=== PATIENT | male | born 1930 | race Two or more races ===

== ENCOUNTER 2016-10-18 03:53 | Emergency (ER) | payer OTHER ==
[~2016-10-18 03:53] MED LIST: /AMLO25TA PO; BISAC5TA OR; BISAC5TA PR; COLC0.6T34 PO; GLYB5TAB5 PO; LEVOTHYROID PO; LISI40TAB PO; METFORMIN PO; METO50TA4 PO; NYST10PW TOP; OMEP20CA3 PO; PERC10TA PO; PERCOCET OR; PRAVASTATIN PO; PRED10TA2 PO; SENO8.6T9 PO; SOMA350T PO; TRAMADOL PO; ULTR50TA PO; ZEST40TA PO; ZOLO50TA PO; norvasc PO; tylenol PO
[2016-10-18 05:03] LABS: BASO % 0.2 % (0.0-1.0); EOS # 0.2 K/mm3 (0.0-0.50); EOS % 4.1 % (0.0-3.0); LARGE UNSTAINED CELL # 0.1 K/mm3 (0.0-0.4); LARGE UNSTAINED CELL % 1.7 % (0.0-4.0); LYMPH # 1.3 K/mm3 (1.5-4.5); LYMPH % 23.4 % (24.0-44.0); MEAN CORPUSCULAR HEMOGLOBIN 30.7 pg (27.0-33.0); MEAN CORPUSCULAR VOLUME 93.2 fl (80.0-96.0); MONO # 0.3 K/mm3 (0.0-0.8); MONO % 5.8 % (0.0-5.0); NEUTROPHILS # 3.6 K/mm3 (1.8-7.7); NEUTROPHILS % 64.8 % (36.0-66.0); PLATELET COUNT, AUTOMATED 156 k/mm3 (150-450); WHITE BLOOD COUNT 5.5 K/mm3 (4.0-10.0)
[2016-10-18 05:41] LABS: ANION GAP 8 MEQ/L (8-16); BLOOD UREA NITROGEN 27 MG/DL (7-18); CARBON DIOXIDE LEVEL 27 MEQ/L (21-32); CHLORIDE LEVEL 108 MEQ/L (98-107); CREATININE FOR GFR 1.49 MG/DL (0.70-1.30); GLOMERULAR FILTRATION RATE 47.5 (>35); GLUCOSE, FASTING 221 MG/DL (83-110); POTASSIUM SERUM 3.8 MEQ/L (3.5-5.1); SODIUM LEVEL 143 MEQ/L (136-145)
[2016-10-18] MEDS ORDERED: ALBUTEROL 90 MCG/ACT 8GM HFA INHALER As Ordered ONE (07:06)
[2016-10-18] MEDS ORDERED: BENZONATATE 100 MG CAP As Ordered ONE (07:09)
--- NOTE | 2016-10-18 08:01 | EDDOCDS ---
Nurse's Notes [facility] Name: Troy Mena Age: 86 yrs Sex: Male : 1930 Arrival Date: 10/18/2016 Time: 03:53 Bed 17 Private MD: Gustavo Martin MD Diagnosis: Acute bronchitis Presentation: 10/18 03:56 Presenting complaint: EMS states: Pt to ED via EMS for evaluation of shortness of mv5 breath with productive cough. Improvement of wheezes after albuterol neb en route. Adult Sepsis Screening: The patient does not have new or worsening altered mentation. Patient's respiratory rate is less than 22. Systolic blood pressure is greater than 100. Patient has a qSOFA score of 0- Negative Sepsis Screen. Suicide/Homicide risk assessment- the patient denies having any suicidal and/or homicidal ideations and does not present with any other emotional, behavioral or mental health complaints. Status: Patient is not a business services sales representative or dependent. Transition of care: patient was not received from another setting of care. 03:56 Acuity: DURAN Level 3 mv5 03:56 Method Of Arrival: Ambulance mv5 Triage Assessment: 04:03 General: Appears in no apparent distress, comfortable, well nourished. Pain: Location: mv5 anterior aspect of left shoulder Pain currently is 8 out of 10 on a pain scale. The patient is triaged at the bedside. See Assessment in Nurses Notes section of ED record. Neurological: Level of Consciousness is awake, alert, Oriented to person, place, time. Cardiovascular: Capillary refill < 3 seconds Heart tones S1 S2 present Pulses are all present. Rhythm is sinus rhythm No ectopy. Respiratory: Onset: The symptoms/episode began/occurred yesterday, Airway is patent Respiratory effort is even, unlabored, Respiratory pattern is regular, symmetrical, Breath sounds are clear bilaterally. GI: Reports lower abdominal pain, ongoing LLQ discomfort, pt states "for a long time". Reports frequent gas. : No deficits noted. Derm: Skin is pink, warm & dry. Historical: - Allergies: Aspirin; - Home Meds: 1. allopurinol 100 mg Oral tab once daily 2. gabapentin 100 mg Oral cap 2 caps nightly 3. Januvia 50 mg oral tab once daily 4. levemir insulin 55 u 4 pm 5. Levoxyl 75 mcg Oral tab once daily 6. lisinopril 40 mg Oral tab once daily 7. Mag 64 64 mg oral TbER daily 8. omeprazole 20 mg Oral cpDR 2 times per day 9. Pravachol 40 mg Oral tab once daily - PMHx: Diabetes - IDDM: controlled; Gout; Hypercholesterolemia; Hypertension; - PSHx: left shoulder surgery; - Social history: Smoking status: Patient states former smoker of tobacco. No barriers to communication noted, The patient speaks fluent Kiswahili. - Family history: Not pertinent. - : The pt / caregiver states he / she is not on anticoagulants. Home medication list is obtained from the patient. - Exposure Risk Screening:: None identified. Screenin:09 Screening information is obtained from the patient. Fall risk: No risks identified. mv5 Fall risk: At risk due to prior history of falls. Assistance ADL's: requires no assistance with activities of daily living. Abuse/DV Screen: The patient / caregiver reports he/she is: not in a situation that causes fear, pain or injury. Nutritional screening: No deficits noted. Advance Directives: Currently, there is a health care proxy, There is no active DNR order. home support is adequate. Assessment: 04:09 General: See Triage assessment. Cardiovascular: Capillary refill < 3 seconds Heart mv5 tones S1 S2 present Rhythm is sinus rhythm. Cardiovascular: Chest pain is denied. Respiratory: Airway is patent Respiratory effort is even, unlabored, Respiratory pattern is regular, occasional cough. Breath sounds are clear bilaterally. Derm: Skin is pink, warm & dry. 05:09 General: Appears in no apparent distress, Behavior is cooperative, pleasant. mv5 Cardiovascular: Rhythm is sinus rhythm No ectopy. Respiratory: Airway is patent Respiratory effort is even, unlabored, Respiratory pattern is regular, symmetrical. Derm: Skin is pink, warm & dry. 05:58 General: Appears in no apparent distress. General: Pt assisted to restroom by Trace, mv5 CERAMIC MOLD DESIGNER.. Respiratory: Airway is patent Respiratory effort is even, unlabored, Respiratory pattern is regular, symmetrical. Derm: Skin is pink, warm & dry. 06:45 General: Appears in no apparent distress. Cardiovascular: Rhythm is sinus rhythm No mv5 ectopy. Respiratory: Airway is patent Respiratory effort is even, unlabored, Respiratory pattern is regular, symmetrical. Derm: Skin is pink, warm & dry. 07:15 General: Appears skin warm and dry color satisfactory. Moist pink oral mucosa. chest jmk CTA, but slightly diminished to right base. denies pain. Monitor is sr. No cough appreciated.. SL intact. attempting transportation arrangements. Vital Signs: 04:05 BP 143 / 65; Pulse 78; Resp 18; Temp 99.3(TE); Pulse Ox 96% on R/A; Weight 79.38 kg nb2 (R); Height 5 ft. 4 in. (162.56 cm) (R); Pain 6/10; 04:19 BP 131 / 54 (auto/); mv5 04:21 Pulse 90 MON; Pulse Ox 93% ; mv5 04:34 BP 146 / 61 (auto/); mv5 04:34 Pulse 82 MON; Pulse Ox 93% ; mv5 04:52 BP 143 / 86 (auto/); mv5 04:53 Pulse 88 MON; Pulse Ox 93% ; mv5 05:04 BP 159 / 74 (auto/); mv5 05:04 Pulse 84 MON; Pulse Ox 95% ; mv5 05:19 BP 153 / 69 (auto/); mv5 05:19 Pulse 82 MON; Pulse Ox 92% ; mv5 05:34 BP 160 / 70 (auto/); mv5 05:34 Pulse 96 MON; Pulse Ox 90% ; mv5 06:01 BP 164 / 73 (auto/); mv5 06:02 Pulse 86 MON; Pulse Ox 96% ; mv5 04:05 Body Mass Index 30.04 (79.38 kg, 162.56 cm) nb2 Vitals: 04:05 Log In Time N/A - ambulance arrival. nb2 ED Course: 03:55 Patient visited by Gisela Posey PCA. nilo 03:55 Gustavo Martin is Private Physician. nilo 03:55 Thea Carlin,RN is Primary Nurse. nilo 03:55 Patient moved to Waiting nilo 03:55 Patient moved to 17 nilo 03:58 Triage Initiated mv5 04:05 Placed in gown. Bed in low position. Call light in reach. Side rails up X2. Cardiac nb2 monitor on. Pulse ox on. NIBP on. 04:06 Patient visited by Izzy Trevizo. nb2 04:09 The patient / caregiver is instructed regarding the plan of care and ED course. mv5 04:30 López Bueno DO is Attending Physician. mm11 04:30 Patient visited by López Bueno DO. mm11 04:40 Patient visited by López Bueno DO. mm11 04:51 Patient visited by Kulwinder Rg PCA. mdr 04:51 EKG done. (by ED staff). Reviewed by óLpez Bueno DO. mdr 04:55 Cardiac Injury Profile Sent. mv5 04:55 CBC with Diff Sent. mv5 04:55 Basic Metabolic Profile Sent. mv5 04:55 B-Type Natiuretic Peptide Sent. mv5 04:55 -Blood Culture Sent. mv5 04:56 -Influenza A&B Rapid Antigen - Nose Sent. mv5 04:56 Inserted saline lock: 20 gauge in right antecubital area and blood collected. The mv5 patient tolerated the procedure well. 04:56 Maintain field IV. Dressing intact. Site clean & dry. Gauge & site: 20g in LAC. mv5 05:06 BLOOD CULTURES Sent. nb2 05:21 Patient visited by Thea Carlin,ARABELLA. mv5 06:00 Assisted to bathroom. mdr 06:01 Patient visited by Thea Carlin,ARABELLA. mv5 06:17 Patient visited by Kulwinder Rg PCA. mdr 06:49 Patient visited by Thea Carlin,ARABELLA. mv5 06:57 Gustavo Martin is Referral Physician. mm11 07:54 COUNTS INCLUDE 234 BEDS AT THE [facility] Payment Agreement was scanned into [employer] and attached to record. mm15 07:59 Discontinued lock intact, bleeding controlled, pressure dressing applied, No jmk redness/swelling at site. No procedures done that require assistance. Administered Medications: 07:10 Drug: Ventolin 2 puffs [Ventolin HFA 90 mcg/actuation aerosol inhaler (2 puffs)] Route: js11 Inhalation; 07:14 Drug: Tessalon 200 mg Route: PO; jmk RT: 07:10 Initial MDI Given. Patient was instructed and evaluated on procedure Patient tolerated js11 procedure well without adverse effect Spacer used Number of puffs given: 2. Order Results: Lab Order: B-Type Natiuretic Peptide; SPEC'M 10/18/16 04:52 Test: BRAIN NATRIURETIC PEPTIDE; Value: 50.7; Range: <100; Units: PG/ML; Status: F Lab Order: Basic Metabolic Profile; SPEC'M 10/18/16 04:52 Test: GLUCOSE, FASTING; Value: 221; Range: 83-110; Abnormal: Above high normal; Units: MG/DL; Status: F Test: BLOOD UREA NITROGEN; Value: 27; Range: 7-18; Abnormal: Above high normal; Units: MG/DL; Status: F Test: CREATININE FOR GFR; Value: 1.49; Range: 0.70-1.30; Abnormal: Above high normal; Units: MG/DL; Status: F Test: GLOMERULAR FILTRATION RATE; Value: 47.5; Range: >35; Status: F Test: SODIUM LEVEL; Value: 143; Range: 136-145; Units: MEQ/L; Status: F Test: POTASSIUM SERUM; Value: 3.8; Range: 3.5-5.1; Units: MEQ/L; Status: F Test: CHLORIDE LEVEL; Value: 108; Range: 98-107; Abnormal: Above high normal; Units: MEQ/L; Status: F Test: CARBON DIOXIDE LEVEL; Value: 27; Range: 21-32; Units: MEQ/L; Status: F Test: ANION GAP; Value: 8; Range: 8-16; Units: MEQ/L; Status: F Test: CALCIUM LEVEL; Value: 9.0; Range: 8.8-10.2; Units: MG/DL; Status: F Test Note: ; Units are mL/min/1.73 m2 Chronic Kidney Disease Staging per NKF: Stage I & II GFR >=60 Normal to Mildly Decreased Stage III GFR 30-59 Moderately Decreased Stage IV GFR 15-29 Severely Decreased Stage V GFR <15 Very Little GFR Left ESRD GFR <15 on SYSTEM TRAINER Lab Order: CBC with Diff; 10/18/16 04:52 Test: WHITE BLOOD COUNT; Value: 5.5; Range: 4.0-10.0; Units: K/mm3; Status: F Test: RED BLOOD COUNT; Value: 3.95; Range: 4.30-6.10; Abnormal: Below low normal; Units: M/mm3; Status: F Test: HEMOGLOBIN; Value: 12.1; Range: 14.0-18.0; Abnormal: Below low normal; Units: g/dl; Status: F Test: HEMATOCRIT; Value: 36.8; Range: 42.0-52.0; Abnormal: Below low normal; Units: %; Status: F Test: MEAN CORPUSCULAR VOLUME; Value: 93.2; Range: 80.0-96.0; Units: fl; Status: F Test: MEAN CORPUSCULAR HEMOGLOBIN; Value: 30.7; Range: 27.0-33.0; Units: pg; Status: F Test: MEAN CORPUSCULAR HGB CONC; Value: 33.0; Range: 32.0-36.5; Units: g/dl; Status: F Test: RED CELL DISTRIBUTION WIDTH; Value: 13.0; Range: 11.5-14.5; Units: %; Status: F Test: PLATELET COUNT, AUTOMATED; Value: 156; Range: 150-450; Units: k/mm3; Status: F Test: NEUTROPHILS %; Value: 64.8; Range: 36.0-66.0; Units: %; Status: F Test: LYMPH %; Value: 23.4; Range: 24.0-44.0; Abnormal: Below low normal; Units: %; Status: F Test: MONO %; Value: 5.8; Range: 0.0-5.0; Abnormal: Above high normal; Units: %; Status: F Test: EOS %; Value: 4.1; Range: 0.0-3.0; Abnormal: Above high normal; Units: %; Status: F Test: BASO %; Value: 0.2; Range: 0.0-1.0; Units: %; Status: F Test: LARGE UNSTAINED CELL %; Value: 1.7; Range: 0.0-4.0; Units: %; Status: F Test: NEUTROPHILS #; Value: 3.6; Range: 1.8-7.7; Units: K/mm3; Status: F Test: LYMPH #; Value: 1.3; Range: 1.5-4.5; Abnormal: Below low normal; Units: K/mm3; Status: F Test: MONO #; Value: 0.3; Range: 0.0-0.8; Units: K/mm3; Status: F Test: EOS #; Value: 0.2; Range: 0.0-0.50; Units: K/mm3; Status: F Test: BASO #; Value: 0.0; Range: 0.0-0.2; Units: K/mm3; Status: F Test: LARGE UNSTAINED CELL #; Value: 0.1; Range: 0.0-0.4; Units: K/mm3; Status: F Lab Order: Cardiac Injury Profile; [facility] 10/18/16 04:52 Test: CPK CREATINE PHOSPHOKINASE; Value: 434; Range: 39-308; Abnormal: Above high normal; Units: U/L; Status: F Test: CK-MB VALUE MASS; Value: 10.7; Range: 0.0-3.6; Abnormal: Above high normal; Units: NG/ML; Status: F Test: MB/CK RELATIVE INDEX; Value: 2.46; Range: < OR =4; Status: F Test Note: ; DIAGNOSIS CRITERIA MMB ng/ml Relative Index (RI) NON-AMI < or = 5 N/A VEGA ZONE > 5 < or = 4 AMI > 5 > 4 Lab Order: Troponin; [facility] 10/18/16 04:52 Test: TROPONIN I; Value: < 0.02; Range: < 0.10; Units: NG/ML; Status: F Test Note: ; Troponin I Reference Interval for [employer] LOCI: 99th Percentile= 0.00-0.045 ng/ml Risk Stratification: <= 0.10 ng/ml Decreased Risk for Adverse Clinical Events. 0.10-1.50 ng/ml Increased Risk for Adverse Clinical Events. Evaluation of additional criterion and/or repeat testing in 2-6 hours is suggested to rule out myocardial damage. >= 1.50 ng/ml Indicative of Myocardial Injury. Lab Order: -Influenza A&B Rapid Antigen - Nose; SPEC'M 10/18/16 04:55 Test: INFLUENZA A RAPID SCR by ICA; Value: INFLUENZA A RESULTS NEGATIVE; Status: F Test: INFLUENZA A RAPID SCR by ICA; Value: Comments:; Status: F Test: INFLUENZA B RAPID SCR by ICA; Value: INFLUENZA B RESULTS NEGATIVE; Status: F Test Note: ; The Influenza test is a direct rapid immunoassay for the qualitative detection of Influenza viral antigen. Cell culture (Viral Culture) testing should be considered to confirm NEGATIVE results and to assist in detecting other viruses that can provide similar clinical symptoms. Please contact the lab within 24 hours ([phone]) if confirmatory testing is desired. Outcome: 06:57 Discharge ordered by Provider. mm11 07:59 Discharge Assessment: Patient awake, alert and oriented x 3. No cognitive and/or jmk functional deficits noted. Patient verbalized understanding of disposition instructions. patient administered narcotics - no. The following High Risk Discharge criteria are identified: None. Discharged to home ambulatory. Condition: good. Discharge instructions given to patient, Instructed on discharge instructions, follow up and referral plans. medication usage, Demonstrated understanding of instructions, medications, Patient was not receptive of discharge instructions. No special radiology studies were completed. Property :Personal belongings accompany Pt. 08:00 Patient left the ED. [facility] Signatures: Neil Tom,RN RN irisk López Bueno, DO mm11 Gisela Posey, CERAMIC MOLD DESIGNER CERAMIC MOLD DESIGNER Elroy Savage js11 Jona Moeller mm15 Kulwinder Rg, CERAMIC MOLD DESIGNER CERAMIC MOLD DESIGNER Izzy Castanon nb2 Thea Carlin,RN RN mv5 MTDD
--- NOTE | 2016-10-18 08:01 | EDDOCDS ---
Physician Documentation [facility] Name: Troy Mena Age: 86 yrs Sex: Male : 1930 Arrival Date: 10/18/2016 Time: 03:53 Bed 17 Private MD: Gustavo Martin MD Disposition: 10/18/16 06:57 Discharged to Home/Self Care. Impression: Acute bronchitis. - Condition is Stable. - Discharge Instructions: Acute Bronchitis, Viral Infections, Viral Infections, [id number]. - Prescriptions for Mucinex 600 mg - take 1 tablet by ORAL route 2 times per day; 30 tablet. benzonatate 200 mg Oral Capsule - take 1 capsule by ORAL route 3 times per day As needed; 30 capsule. - Medication Reconciliation, Local Pharmacy Hours form. - Follow up: Gustavo Martin; When: 2 - 3 days; Reason: Continuance of care. - Problem is an acute exacerbation. - Symptoms have improved. Historical: - Allergies: Aspirin; - Home Meds: 1. allopurinol 100 mg Oral tab once daily 2. gabapentin 100 mg Oral cap 2 caps nightly 3. Januvia 50 mg oral tab once daily 4. levemir insulin 55 u 4 pm 5. Levoxyl 75 mcg Oral tab once daily 6. lisinopril 40 mg Oral tab once daily 7. Mag 64 64 mg oral TbER daily 8. omeprazole 20 mg Oral cpDR 2 times per day 9. Pravachol 40 mg Oral tab once daily - PMHx: Diabetes - IDDM: controlled; Gout; Hypercholesterolemia; Hypertension; - PSHx: left shoulder surgery; - Social history: Smoking status: Patient states former smoker of tobacco. No barriers to communication noted, The patient speaks fluent Fijian. - Family history: Not pertinent. - : The pt / caregiver states he / she is not on anticoagulants. Home medication list is obtained from the patient. - Exposure Risk Screening:: None identified. Vital Signs: 10/18 04:05 BP 143 / 65; Pulse 78; Resp 18; Temp 99.3(TE); Pulse Ox 96% on R/A; Weight 79.38 kg / nb2 175 lbs (R); Height 5 ft. 4 in. (162.56 cm) (R); Pain 6/10; 04:19 BP 131 / 54 (auto/); mv5 04:21 Pulse 90 MON; Pulse Ox 93% ; mv5 04:34 BP 146 / 61 (auto/); mv5 04:34 Pulse 82 MON; Pulse Ox 93% ; mv5 04:52 BP 143 / 86 (auto/); mv5 04:53 Pulse 88 MON; Pulse Ox 93% ; mv5 05:04 BP 159 / 74 (auto/); mv5 05:04 Pulse 84 MON; Pulse Ox 95% ; mv5 05:19 BP 153 / 69 (auto/); mv5 05:19 Pulse 82 MON; Pulse Ox 92% ; mv5 05:34 BP 160 / 70 (auto/); mv5 05:34 Pulse 96 MON; Pulse Ox 90% ; mv5 06:01 BP 164 / 73 (auto/); mv5 06:02 Pulse 86 MON; Pulse Ox 96% ; mv5 04:05 Body Mass Index 30.04 (79.38 kg, 162.56 cm) nb2 MDM: 04:41 -Blood Culture (Adults Only), peripheral from different site, or from device/port/PICC mm11 etc. if present ordered. 04:41 Certified Medical Transcriptionist/Pulse Ox/q 15 min VS ordered. mm11 04:41 IV Saline Lock ordered. mm11 04:41 Rhythm Strip to chart ordered. mm11 04:42 B-Type Natiuretic Peptide Ordered. EDMS 04:42 Basic Metabolic Profile Ordered. EDMS 04:42 CBC with Diff Ordered. EDMS 04:42 Cardiac Injury Profile Ordered. EDMS 04:42 Troponin Ordered. EDMS 04:42 -Blood Culture Ordered. EDMS 04:42 -Influenza A&B Rapid Antigen - Nose Ordered. EDMS 04:42 Chest, 2 View (pa\E\lat) Ordered. EDMS 04:42 ECG WITH READING ER PHYS+CARDIAG ordered. EDMS 04:43 -Blood Culture (Adults Only), peripheral from different site, or from device/port/PICC nilo etc. if present complete. 04:46 BLOOD CULTURES Ordered. EDMS 05:39 CBC with Diff Reviewed. mm11 05:39 B-Type Natiuretic Peptide Reviewed. mm11 05:39 -Influenza A&B Rapid Antigen - Nose Reviewed. mm11 06:54 Basic Metabolic Profile Reviewed. mm11 06:54 Cardiac Injury Profile Reviewed. mm11 06:54 Troponin Reviewed. mm11 06:56 Tessalon 200 mg PO once ordered. mm11 06:56 Ventolin Inhaler 2 puffs Inhalation once ordered. mm11 06:56 MDI teaching with Spacer ordered. mm11 07:52 Financial registration complete. mm15 07:54 [facility] Payment Agreement was scanned into [employer] and attached to record. mm15 Administered Medications: 07:10 Drug: Ventolin 2 puffs [Ventolin HFA 90 mcg/actuation aerosol inhaler (2 puffs)] Route: js11 Inhalation; 07:14 Drug: Tessalon 200 mg Route: PO; marleni Signatures: Dispatcher MedHo EDNeil John,RN RN López Gonsales, DO mm11 Gisela Posey, BJ SOCIAL MEDIA CONTENT MANAGER Jona Mackay mm15 Thea Carlin,RN RN mv5 Elroy Ley js11 The chart was reviewed and I authenticate all verbal orders and agree with the evaluation and treatment provided.Attachments: 07:54 [facility] Payment Agreement mm15 MTDD
--- NOTE | 2016-10-18 08:01 | REP ---
Clinical: Acute cough . Comparison: 09/17/2014 . Technique: PA and lateral. Findings: The mediastinum and cardiac silhouette are normal. The lung hebert are clear and without acute consolidation, effusion, or pneumothorax. The skeletal structures are intact and normal. Impression: 1. No acute cardiopulmonary process. Signed by Zander Almanza MD 10/18/2016 07:52 A
--- NOTE | 2016-10-18 08:33 | ECGEPIP ---
Stationary ECG Study [facility] - ED Test Date: 2016-10-18 Pat Name: WILFRIDO ESTRADA Department: Room: - Gender: M Manufacturing Technician: : 1930 Requested By: ELVIS Taveras Order Number: [id number] Reading MD: Jenise Wang Measurements Intervals [place] Rate: 81 P: 22 MD: 164 QRS: 12 QRSD: 97 T: 113 QT: 359 QTc: 417 Interpretive Statements SINUS RHYTHM NONSPECIFIC ST & T-WAVE ABNORMALITY INCREASED RATE 09/17/14 Electronically Signed On 10-18-2016 8:33:18 EST by Jenise Wang
[2016-10-18] MEDS ORDERED: MORPHINE 2 MG/ML 1ML SYRINGE As Ordered ONE (12:54)
[2016-10-18] MEDS ORDERED: LEVO75TA34 PO (15:29)
[2016-10-18] MEDS ORDERED: ALLO100T PO (15:29)
[2016-10-18] MEDS ORDERED: SITA50TAB PO (15:29)
[2016-10-18] MEDS ORDERED: GABA-279 PO (15:29)
[2016-10-18] MEDS ORDERED: MAGN64TASA PO (15:29)
[2016-10-18] MEDS ORDERED: SERT25TA85 PO (15:31)
[2016-10-18] MEDS ORDERED: OMEP20CA3 PO (15:31)
[2016-10-18] MEDS ORDERED: LISI40TAB PO (15:31)
[2016-10-18] MEDS ORDERED: INSUDET SC (15:31)
[2016-10-18] MEDS ORDERED: PRAV40TA2 PO (15:31)
--- NOTE | 2016-10-20 09:01 | EDDOCDS ---
Nurse's Notes [facility] Name: Troy Mena Age: 86 yrs Sex: Male : 1930 Arrival Date: 10/18/2016 Time: 03:53 Bed 17 Private MD: Gustavo Martin MD Diagnosis: Acute bronchitis Presentation: 10/18 03:56 Presenting complaint: EMS states: Pt to ED via EMS for evaluation of shortness of mv5 breath with productive cough. Improvement of wheezes after albuterol neb en route. Adult Sepsis Screening: The patient does not have new or worsening altered mentation. Patient's respiratory rate is less than 22. Systolic blood pressure is greater than 100. Patient has a qSOFA score of 0- Negative Sepsis Screen. Suicide/Homicide risk assessment- the patient denies having any suicidal and/or homicidal ideations and does not present with any other emotional, behavioral or mental health complaints. Status: Patient is not a automotive fuel injection servicer or dependent. Transition of care: patient was not received from another setting of care. 03:56 Acuity: DURAN Level 3 mv5 03:56 Method Of Arrival: Ambulance mv5 Triage Assessment: 04:03 General: Appears in no apparent distress, comfortable, well nourished. Pain: Location: mv5 anterior aspect of left shoulder Pain currently is 8 out of 10 on a pain scale. The patient is triaged at the bedside. See Assessment in Nurses Notes section of ED record. Neurological: Level of Consciousness is awake, alert, Oriented to person, place, time. Cardiovascular: Capillary refill < 3 seconds Heart tones S1 S2 present Pulses are all present. Rhythm is sinus rhythm No ectopy. Respiratory: Onset: The symptoms/episode began/occurred yesterday, Airway is patent Respiratory effort is even, unlabored, Respiratory pattern is regular, symmetrical, Breath sounds are clear bilaterally. GI: Reports lower abdominal pain, ongoing LLQ discomfort, pt states "for a long time". Reports frequent gas. : No deficits noted. Derm: Skin is pink, warm & dry. Historical: - Allergies: Aspirin; - Home Meds: 1. allopurinol 100 mg Oral tab once daily 2. gabapentin 100 mg Oral cap 2 caps nightly 3. Januvia 50 mg oral tab once daily 4. levemir insulin 55 u 4 pm 5. Levoxyl 75 mcg Oral tab once daily 6. lisinopril 40 mg Oral tab once daily 7. Mag 64 64 mg oral TbER daily 8. omeprazole 20 mg Oral cpDR 2 times per day 9. Pravachol 40 mg Oral tab once daily - PMHx: Diabetes - IDDM: controlled; Gout; Hypercholesterolemia; Hypertension; - PSHx: left shoulder surgery; - Social history: Smoking status: Patient states former smoker of tobacco. No barriers to communication noted, The patient speaks fluent Welsh. - Family history: Not pertinent. - : The pt / caregiver states he / she is not on anticoagulants. Home medication list is obtained from the patient. - Exposure Risk Screening:: None identified. Screenin:09 Screening information is obtained from the patient. Fall risk: No risks identified. mv5 Fall risk: At risk due to prior history of falls. Assistance ADL's: requires no assistance with activities of daily living. Abuse/DV Screen: The patient / caregiver reports he/she is: not in a situation that causes fear, pain or injury. Nutritional screening: No deficits noted. Advance Directives: Currently, there is a health care proxy, There is no active DNR order. home support is adequate. Assessment: 04:09 General: See Triage assessment. Cardiovascular: Capillary refill < 3 seconds Heart mv5 tones S1 S2 present Rhythm is sinus rhythm. Cardiovascular: Chest pain is denied. Respiratory: Airway is patent Respiratory effort is even, unlabored, Respiratory pattern is regular, occasional cough. Breath sounds are clear bilaterally. Derm: Skin is pink, warm & dry. 05:09 General: Appears in no apparent distress, Behavior is cooperative, pleasant. mv5 Cardiovascular: Rhythm is sinus rhythm No ectopy. Respiratory: Airway is patent Respiratory effort is even, unlabored, Respiratory pattern is regular, symmetrical. Derm: Skin is pink, warm & dry. 05:58 General: Appears in no apparent distress. General: Pt assisted to restroom by Trace, mv5 BELL NECK HAMMERER.. Respiratory: Airway is patent Respiratory effort is even, unlabored, Respiratory pattern is regular, symmetrical. Derm: Skin is pink, warm & dry. 06:45 General: Appears in no apparent distress. Cardiovascular: Rhythm is sinus rhythm No mv5 ectopy. Respiratory: Airway is patent Respiratory effort is even, unlabored, Respiratory pattern is regular, symmetrical. Derm: Skin is pink, warm & dry. 07:15 General: Appears skin warm and dry color satisfactory. Moist pink oral mucosa. chest jmk CTA, but slightly diminished to right base. denies pain. Monitor is sr. No cough appreciated.. SL intact. attempting transportation arrangements. Vital Signs: 04:05 BP 143 / 65; Pulse 78; Resp 18; Temp 99.3(TE); Pulse Ox 96% on R/A; Weight 79.38 kg nb2 (R); Height 5 ft. 4 in. (162.56 cm) (R); Pain 6/10; 04:19 BP 131 / 54 (auto/); mv5 04:21 Pulse 90 MON; Pulse Ox 93% ; mv5 04:34 BP 146 / 61 (auto/); mv5 04:34 Pulse 82 MON; Pulse Ox 93% ; mv5 04:52 BP 143 / 86 (auto/); mv5 04:53 Pulse 88 MON; Pulse Ox 93% ; mv5 05:04 BP 159 / 74 (auto/); mv5 05:04 Pulse 84 MON; Pulse Ox 95% ; mv5 05:19 BP 153 / 69 (auto/); mv5 05:19 Pulse 82 MON; Pulse Ox 92% ; mv5 05:34 BP 160 / 70 (auto/); mv5 05:34 Pulse 96 MON; Pulse Ox 90% ; mv5 06:01 BP 164 / 73 (auto/); mv5 06:02 Pulse 86 MON; Pulse Ox 96% ; mv5 04:05 Body Mass Index 30.04 (79.38 kg, 162.56 cm) nb2 Vitals: 04:05 Log In Time N/A - ambulance arrival. nb2 ED Course: 03:55 Patient visited by Gisela Posey PCA. nilo 03:55 Gustavo Martin is Private Physician. nilo 03:55 Thea Carlin,RN is Primary Nurse. nilo 03:55 Patient moved to Waiting nilo 03:55 Patient moved to 17 nilo 03:58 Triage Initiated mv5 04:05 Placed in gown. Bed in low position. Call light in reach. Side rails up X2. Cardiac nb2 monitor on. Pulse ox on. NIBP on. 04:06 Patient visited by Izzy Trevizo. nb2 04:09 The patient / caregiver is instructed regarding the plan of care and ED course. mv5 04:30 López Bueno DO is Attending Physician. mm11 04:30 Patient visited by López Bueno DO. mm11 04:40 Patient visited by López Bueno DO. mm11 04:51 Patient visited by Kulwinder Rg PCA. mdr 04:51 EKG done. (by ED staff). Reviewed by López Bueno DO. mdr 04:55 Cardiac Injury Profile Sent. mv5 04:55 CBC with Diff Sent. mv5 04:55 Basic Metabolic Profile Sent. mv5 04:55 B-Type Natiuretic Peptide Sent. mv5 04:55 -Blood Culture Sent. mv5 04:56 -Influenza A&B Rapid Antigen - Nose Sent. mv5 04:56 Inserted saline lock: 20 gauge in right antecubital area and blood collected. The mv5 patient tolerated the procedure well. 04:56 Maintain field IV. Dressing intact. Site clean & dry. Gauge & site: 20g in LAC. mv5 05:06 BLOOD CULTURES Sent. nb2 05:21 Patient visited by Thea Carlin,ARABELLA. mv5 06:00 Assisted to bathroom. mdr 06:01 Patient visited by Thea Carlin,ARABELLA. mv5 06:17 Patient visited by Kulwinder Rg, [place]. mdr 06:49 Patient visited by Thea Carlin,ARABELLA. mv5 06:57 Gustavo Martin is Referral Physician. mm11 07:54 [facility] Payment Agreement was scanned into [employer] and attached to record. mm15 07:59 Discontinued lock intact, bleeding controlled, pressure dressing applied, No jmk redness/swelling at site. No procedures done that require assistance. 08:10 Chest, 2 View (pa\\E\\lat) Returned. EDMS 08:34 EKG-ADULT Returned. EDMS 10/19 13:56 T-Sheet-- Draft Copy was scanned into [employer] and attached to record. gb 13:56 ECG/EKG was scanned into [employer] and attached to record. gb 13:57 Trend VS was scanned into [employer] and attached to record. gb 13:57 PCR was scanned into [employer] and attached to record. gb Administered Medications: 10/18 07:10 Drug: Ventolin 2 puffs [Ventolin HFA 90 mcg/actuation aerosol inhaler (2 puffs)] Route: js11 Inhalation; 07:14 Drug: Tessalon 200 mg Route: PO; marleni Attachments: 13:57 Trend VS gb RT: 10/18 07:10 Initial MDI Given. Patient was instructed and evaluated on procedure Patient tolerated js11 procedure well without adverse effect Spacer used Number of puffs given: 2. Order Results: Lab Order: -Blood Culture; SPEC'M 10/18/16 04:52 Test: BLOOD CULTURE; Value: No growth after 24 hours . All specimens observed; Status: F Test: BLOOD CULTURE; Value: for 5 days. Results final at that time.; Status: F Test: BLOOD CULTURE; Value: No Growth after 48 hours. All Specimens observed; Status: F Test: BLOOD CULTURE; Value: for 7 days. Results final at that time.; Status: F Lab Order: B-Type Natiuretic Peptide; SPEC'M 10/18/16 04:52 Test: BRAIN NATRIURETIC PEPTIDE; Value: 50.7; Range: <100; Units: PG/ML; Status: F Lab Order: Basic Metabolic Profile; SPEC'M 10/18/16 04:52 Test: GLUCOSE, FASTING; Value: 221; Range: 83-110; Abnormal: Above high normal; Units: MG/DL; Status: F Test: BLOOD UREA NITROGEN; Value: 27; Range: 7-18; Abnormal: Above high normal; Units: MG/DL; Status: F Test: CREATININE FOR GFR; Value: 1.49; Range: 0.70-1.30; Abnormal: Above high normal; Units: MG/DL; Status: F Test: GLOMERULAR FILTRATION RATE; Value: 47.5; Range: >35; Status: F Test: SODIUM LEVEL; Value: 143; Range: 136-145; Units: MEQ/L; Status: F Test: POTASSIUM SERUM; Value: 3.8; Range: 3.5-5.1; Units: MEQ/L; Status: F Test: CHLORIDE LEVEL; Value: 108; Range: 98-107; Abnormal: Above high normal; Units: MEQ/L; Status: F Test: CARBON DIOXIDE LEVEL; Value: 27; Range: 21-32; Units: MEQ/L; Status: F Test: ANION GAP; Value: 8; Range: 8-16; Units: MEQ/L; Status: F Test: CALCIUM LEVEL; Value: 9.0; Range: 8.8-10.2; Units: MG/DL; Status: F Test Note: ; Units are mL/min/1.73 m2 Chronic Kidney Disease Staging per NKF: Stage I & II GFR >=60 Normal to Mildly Decreased Stage III GFR 30-59 Moderately Decreased Stage IV GFR 15-29 Severely Decreased Stage V GFR <15 Very Little GFR Left ESRD GFR <15 on MEDICAL RESEARCH ASSOCIATE Lab Order: CBC with Diff; SPEC'M 10/18/16 04:52 Test: WHITE BLOOD COUNT; Value: 5.5; Range: 4.0-10.0; Units: K/mm3; Status: F Test: RED BLOOD COUNT; Value: 3.95; Range: 4.30-6.10; Abnormal: Below low normal; Units: M/mm3; Status: F Test: HEMOGLOBIN; Value: 12.1; Range: 14.0-18.0; Abnormal: Below low normal; Units: g/dl; Status: F Test: HEMATOCRIT; Value: 36.8; Range: 42.0-52.0; Abnormal: Below low normal; Units: %; Status: F Test: MEAN CORPUSCULAR VOLUME; Value: 93.2; Range: 80.0-96.0; Units: fl; Status: F Test: MEAN CORPUSCULAR HEMOGLOBIN; Value: 30.7; Range: 27.0-33.0; Units: pg; Status: F Test: MEAN CORPUSCULAR HGB CONC; Value: 33.0; Range: 32.0-36.5; Units: g/dl; Status: F Test: RED CELL DISTRIBUTION WIDTH; Value: 13.0; Range: 11.5-14.5; Units: %; Status: F Test: PLATELET COUNT, AUTOMATED; Value: 156; Range: 150-450; Units: k/mm3; Status: F Test: NEUTROPHILS %; Value: 64.8; Range: 36.0-66.0; Units: %; Status: F Test: LYMPH %; Value: 23.4; Range: 24.0-44.0; Abnormal: Below low normal; Units: %; Status: F Test: MONO %; Value: 5.8; Range: 0.0-5.0; Abnormal: Above high normal; Units: %; Status: F Test: EOS %; Value: 4.1; Range: 0.0-3.0; Abnormal: Above high normal; Units: %; Status: F Test: BASO %; Value: 0.2; Range: 0.0-1.0; Units: %; Status: F Test: LARGE UNSTAINED CELL %; Value: 1.7; Range: 0.0-4.0; Units: %; Status: F Test: NEUTROPHILS #; Value: 3.6; Range: 1.8-7.7; Units: K/mm3; Status: F Test: LYMPH #; Value: 1.3; Range: 1.5-4.5; Abnormal: Below low normal; Units: K/mm3; Status: F Test: MONO #; Value: 0.3; Range: 0.0-0.8; Units: K/mm3; Status: F Test: EOS #; Value: 0.2; Range: 0.0-0.50; Units: K/mm3; Status: F Test: BASO #; Value: 0.0; Range: 0.0-0.2; Units: K/mm3; Status: F Test: LARGE UNSTAINED CELL #; Value: 0.1; Range: 0.0-0.4; Units: K/mm3; Status: F Lab Order: Cardiac Injury Profile; [facility] 04:52 Test: CPK CREATINE PHOSPHOKINASE; Value: 434; Range: 39-308; Abnormal: Above high normal; Units: U/L; Status: F Test: CK-MB VALUE MASS; Value: 10.7; Range: 0.0-3.6; Abnormal: Above high normal; Units: NG/ML; Status: F Test: MB/CK RELATIVE INDEX; Value: 2.46; Range: < OR =4; Status: F Test Note: ; DIAGNOSIS CRITERIA MMB ng/ml Relative Index (RI) NON-AMI < or = 5 N/A VEGA ZONE > 5 < or = 4 AMI > 5 > 4 Lab Order: Troponin; SPEC10/18/16 04:52 Test: TROPONIN I; Value: < 0.02; Range: < 0.10; Units: NG/ML; Status: F Test Note: ; Troponin I Reference Interval for [employer] LOCI: 99th Percentile= 0.00-0.045 ng/ml Risk Stratification: <= 0.10 ng/ml Decreased Risk for Adverse Clinical Events. 0.10-1.50 ng/ml Increased Risk for Adverse Clinical Events. Evaluation of additional criterion and/or repeat testing in 2-6 hours is suggested to rule out myocardial damage. >= 1.50 ng/ml Indicative of Myocardial Injury. Lab Order: -Influenza A&B Rapid Antigen - Nose; SPEC'M 10/18/16 04:55 Test: INFLUENZA A RAPID SCR by ICA; Value: INFLUENZA A RESULTS NEGATIVE; Status: F Test: INFLUENZA A RAPID SCR by ICA; Value: Comments:; Status: F Test: INFLUENZA B RAPID SCR by ICA; Value: INFLUENZA B RESULTS NEGATIVE; Status: F Test Note: ; The Influenza test is a direct rapid immunoassay for the qualitative detection of Influenza viral antigen. Cell culture (Viral Culture) testing should be considered to confirm NEGATIVE results and to assist in detecting other viruses that can provide similar clinical symptoms. Please contact the lab within 24 hours ([phone]) if confirmatory testing is desired. Lab Order: BLOOD CULTURES; SPEC'M 10/18/16 05:06 Test: BLOOD CULTURE; Value: No growth after 24 hours . All specimens observed; Status: F Test: BLOOD CULTURE; Value: for 5 days. Results final at that time.; Status: F Test: BLOOD CULTURE; Value: No Growth after 48 hours. All Specimens observed; Status: F Test: BLOOD CULTURE; Value: for 7 days. Results final at that time.; Status: F Radiology Order: Chest, 2 View (pa\\E\\lat) Test: Chest, 2 View (pa\\E\\lat) REASON FOR EXAMINATION: Cough; Clinical: Acute cough .; ; Comparison: 09/17/2014 .; ; Technique: PA and lateral.; ; Findings:; The mediastinum and cardiac silhouette are normal. The lung hebert are clear and; without acute consolidation, effusion, or pneumothorax. The skeletal structures; are intact and normal.; ; Impression:; 1. No acute cardiopulmonary process.; ; ; Signed by; Zander Almanza MD 10/18/2016 07:52 A; Outcome: 06:57 Discharge ordered by Provider. mm11 07:59 Discharge Assessment: Patient awake, alert and oriented x 3. No cognitive and/or jmk functional deficits noted. Patient verbalized understanding of disposition instructions. patient administered narcotics - no. The following High Risk Discharge criteria are identified: None. Discharged to home ambulatory. Condition: good. Discharge instructions given to patient, Instructed on discharge instructions, follow up and referral plans. medication usage, Demonstrated understanding of instructions, medications, Patient was not receptive of discharge instructions. No special radiology studies were completed. Property :Personal belongings accompany Pt. 08:00 Patient left the ED. marleni Signatures: Dispatcher [employer] EDMS Neil Tom,RN RN Kate Juárez, Reg Reg López Arriaga, DO DO mm11 Gisela Posey, BELL NECK HAMMERER BELL NECK HAMMERER Elroy Savage js11 Jona Moeller mm15 Kulwinder Rg, BELL NECK HAMMERER BELL NECK HAMMERER Izzy Castanon nb2 Thea Carlin,RN RN mv5 Chart Complete SELINAD
--- NOTE | 2016-10-20 09:01 | EDDOCDS ---
Physician Documentation [facility] Name: Troy Mena Age: 86 yrs Sex: Male : 1930 Arrival Date: 10/18/2016 Time: 03:53 Bed 17 Private MD: Gustavo Martin MD Disposition: 10/18/16 06:57 Discharged to Home/Self Care. Impression: Acute bronchitis. - Condition is Stable. - Discharge Instructions: Acute Bronchitis, Viral Infections, Viral Infections, [id number]. - Prescriptions for Mucinex 600 mg - take 1 tablet by ORAL route 2 times per day; 30 tablet. benzonatate 200 mg Oral Capsule - take 1 capsule by ORAL route 3 times per day As needed; 30 capsule. - Medication Reconciliation, Local Pharmacy Hours form. - Follow up: Gustavo Martin; When: 2 - 3 days; Reason: Continuance of care. - Problem is an acute exacerbation. - Symptoms have improved. Historical: - Allergies: Aspirin; - Home Meds: 1. allopurinol 100 mg Oral tab once daily 2. gabapentin 100 mg Oral cap 2 caps nightly 3. Januvia 50 mg oral tab once daily 4. levemir insulin 55 u 4 pm 5. Levoxyl 75 mcg Oral tab once daily 6. lisinopril 40 mg Oral tab once daily 7. Mag 64 64 mg oral TbER daily 8. omeprazole 20 mg Oral cpDR 2 times per day 9. Pravachol 40 mg Oral tab once daily - PMHx: Diabetes - IDDM: controlled; Gout; Hypercholesterolemia; Hypertension; - PSHx: left shoulder surgery; - Social history: Smoking status: Patient states former smoker of tobacco. No barriers to communication noted, The patient speaks fluent Greenlandic. - Family history: Not pertinent. - : The pt / caregiver states he / she is not on anticoagulants. Home medication list is obtained from the patient. - Exposure Risk Screening:: None identified. Vital Signs: 10/18 04:05 BP 143 / 65; Pulse 78; Resp 18; Temp 99.3(TE); Pulse Ox 96% on R/A; Weight 79.38 kg / nb2 175 lbs (R); Height 5 ft. 4 in. (162.56 cm) (R); Pain 6/10; 04:19 BP 131 / 54 (auto/); mv5 04:21 Pulse 90 MON; Pulse Ox 93% ; mv5 04:34 BP 146 / 61 (auto/); mv5 04:34 Pulse 82 MON; Pulse Ox 93% ; mv5 04:52 BP 143 / 86 (auto/); mv5 04:53 Pulse 88 MON; Pulse Ox 93% ; mv5 05:04 BP 159 / 74 (auto/); mv5 05:04 Pulse 84 MON; Pulse Ox 95% ; mv5 05:19 BP 153 / 69 (auto/); mv5 05:19 Pulse 82 MON; Pulse Ox 92% ; mv5 05:34 BP 160 / 70 (auto/); mv5 05:34 Pulse 96 MON; Pulse Ox 90% ; mv5 06:01 BP 164 / 73 (auto/); mv5 06:02 Pulse 86 MON; Pulse Ox 96% ; mv5 04:05 Body Mass Index 30.04 (79.38 kg, 162.56 cm) nb2 MDM: 04:41 -Blood Culture (Adults Only), peripheral from different site, or from device/port/PICC mm11 etc. if present ordered. 04:41 Delivery Rn/Pulse Ox/q 15 min VS ordered. mm11 04:41 IV Saline Lock ordered. mm11 04:41 Rhythm Strip to chart ordered. mm11 04:42 B-Type Natiuretic Peptide Ordered. EDMS 04:42 Basic Metabolic Profile Ordered. EDMS 04:42 CBC with Diff Ordered. EDMS 04:42 Cardiac Injury Profile Ordered. EDMS 04:42 Troponin Ordered. EDMS 04:42 -Blood Culture Ordered. EDMS 04:42 -Influenza A&B Rapid Antigen - Nose Ordered. EDMS 04:42 Chest, 2 View (pa\E\lat) Ordered. EDMS 04:42 ECG WITH READING ER PHYS+CARDIAG ordered. EDMS 04:43 -Blood Culture (Adults Only), peripheral from different site, or from device/port/PICC nilo etc. if present complete. 04:46 BLOOD CULTURES Ordered. EDMS 05:39 CBC with Diff Reviewed. mm11 05:39 B-Type Natiuretic Peptide Reviewed. mm11 05:39 -Influenza A&B Rapid Antigen - Nose Reviewed. mm11 06:54 Basic Metabolic Profile Reviewed. mm11 06:54 Cardiac Injury Profile Reviewed. mm11 06:54 Troponin Reviewed. mm11 06:56 Tessalon 200 mg PO once ordered. mm11 06:56 Ventolin Inhaler 2 puffs Inhalation once ordered. mm11 06:56 MDI teaching with Spacer ordered. mm11 07:52 Financial registration complete. mm15 07:54 [facility] Payment Agreement was scanned into [employer] and attached to record. mm15 10/19 13:56 T-Sheet-- Draft Copy was scanned into [employer] and attached to record. gb 13:56 ECG/EKG was scanned into [employer] and attached to record. gb 13:57 Trend VS was scanned into [employer] and attached to record. gb 13:57 PCR was scanned into [employer] and attached to record. gb Administered Medications: 10/18 07:10 Drug: Ventolin 2 puffs [Ventolin HFA 90 mcg/actuation aerosol inhaler (2 puffs)] Route: js11 Inhalation; 07:14 Drug: Tessalon 200 mg Route: PO; marleni Signatures: Dispatcher [employer] EDNeil John,RN RN irisk Kate Reza, Reg Reg gb López Bueno, DO DO mm11 Gisela Posey, SINGLE NEEDLE OPERATOR SINGLE NEEDLE OPERATOR nilo Jona Moeller mm15 Thea Carlin,RN RN mv5 Elroy Ley js11 The chart was reviewed and I authenticate all verbal orders and agree with the evaluation and treatment provided.Attachments: 07:54 [facility] Payment Agreement 15 10/19 13:56 T-Sheet-- Draft Copy gb 13:56 ECG/EKG gb Chart Complete MTDD
--- NOTE | 2016-10-20 09:01 | EDDOCDS ---
Physician Documentation [facility] Name: Troy Mena Age: 86 yrs Sex: Male : 1930 Arrival Date: 10/18/2016 Time: 03:53 Bed 17 Private MD: Gustavo Martin MD Disposition: 10/18/16 06:57 Discharged to Home/Self Care. Impression: Acute bronchitis. - Condition is Stable. - Discharge Instructions: Acute Bronchitis, Viral Infections, Viral Infections, [id number]. - Prescriptions for Mucinex 600 mg - take 1 tablet by ORAL route 2 times per day; 30 tablet. benzonatate 200 mg Oral Capsule - take 1 capsule by ORAL route 3 times per day As needed; 30 capsule. - Medication Reconciliation, Local Pharmacy Hours form. - Follow up: Gustavo Martin; When: 2 - 3 days; Reason: Continuance of care. - Problem is an acute exacerbation. - Symptoms have improved. Historical: - Allergies: Aspirin; - Home Meds: 1. allopurinol 100 mg Oral tab once daily 2. gabapentin 100 mg Oral cap 2 caps nightly 3. Januvia 50 mg oral tab once daily 4. levemir insulin 55 u 4 pm 5. Levoxyl 75 mcg Oral tab once daily 6. lisinopril 40 mg Oral tab once daily 7. Mag 64 64 mg oral TbER daily 8. omeprazole 20 mg Oral cpDR 2 times per day 9. Pravachol 40 mg Oral tab once daily - PMHx: Diabetes - IDDM: controlled; Gout; Hypercholesterolemia; Hypertension; - PSHx: left shoulder surgery; - Social history: Smoking status: Patient states former smoker of tobacco. No barriers to communication noted, The patient speaks fluent Welsh. - Family history: Not pertinent. - : The pt / caregiver states he / she is not on anticoagulants. Home medication list is obtained from the patient. - Exposure Risk Screening:: None identified. Vital Signs: 10/18 04:05 BP 143 / 65; Pulse 78; Resp 18; Temp 99.3(TE); Pulse Ox 96% on R/A; Weight 79.38 kg / nb2 175 lbs (R); Height 5 ft. 4 in. (162.56 cm) (R); Pain 6/10; 04:19 BP 131 / 54 (auto/); mv5 04:21 Pulse 90 MON; Pulse Ox 93% ; mv5 04:34 BP 146 / 61 (auto/); mv5 04:34 Pulse 82 MON; Pulse Ox 93% ; mv5 04:52 BP 143 / 86 (auto/); mv5 04:53 Pulse 88 MON; Pulse Ox 93% ; mv5 05:04 BP 159 / 74 (auto/); mv5 05:04 Pulse 84 MON; Pulse Ox 95% ; mv5 05:19 BP 153 / 69 (auto/); mv5 05:19 Pulse 82 MON; Pulse Ox 92% ; mv5 05:34 BP 160 / 70 (auto/); mv5 05:34 Pulse 96 MON; Pulse Ox 90% ; mv5 06:01 BP 164 / 73 (auto/); mv5 06:02 Pulse 86 MON; Pulse Ox 96% ; mv5 04:05 Body Mass Index 30.04 (79.38 kg, 162.56 cm) nb2 MDM: 04:41 -Blood Culture (Adults Only), peripheral from different site, or from device/port/PICC mm11 etc. if present ordered. 04:41 Consultant Internship/Pulse Ox/q 15 min VS ordered. mm11 04:41 IV Saline Lock ordered. mm11 04:41 Rhythm Strip to chart ordered. mm11 04:42 B-Type Natiuretic Peptide Ordered. EDMS 04:42 Basic Metabolic Profile Ordered. EDMS 04:42 CBC with Diff Ordered. EDMS 04:42 Cardiac Injury Profile Ordered. EDMS 04:42 Troponin Ordered. EDMS 04:42 -Blood Culture Ordered. EDMS 04:42 -Influenza A&B Rapid Antigen - Nose Ordered. EDMS 04:42 Chest, 2 View (pa\E\lat) Ordered. EDMS 04:42 ECG WITH READING ER PHYS+CARDIAG ordered. EDMS 04:43 -Blood Culture (Adults Only), peripheral from different site, or from device/port/PICC nilo etc. if present complete. 04:46 BLOOD CULTURES Ordered. EDMS 05:39 CBC with Diff Reviewed. mm11 05:39 B-Type Natiuretic Peptide Reviewed. mm11 05:39 -Influenza A&B Rapid Antigen - Nose Reviewed. mm11 06:54 Basic Metabolic Profile Reviewed. mm11 06:54 Cardiac Injury Profile Reviewed. mm11 06:54 Troponin Reviewed. mm11 06:56 Tessalon 200 mg PO once ordered. mm11 06:56 Ventolin Inhaler 2 puffs Inhalation once ordered. mm11 06:56 MDI teaching with Spacer ordered. mm11 07:52 Financial registration complete. mm15 07:54 [facility] Payment Agreement was scanned into [employer] and attached to record. mm15 10/19 13:56 T-Sheet-- Draft Copy was scanned into [employer] and attached to record. gb 13:56 ECG/EKG was scanned into [employer] and attached to record. gb 13:57 Trend VS was scanned into [employer] and attached to record. gb 13:57 PCR was scanned into [employer] and attached to record. gb Administered Medications: 10/18 07:10 Drug: Ventolin 2 puffs [Ventolin HFA 90 mcg/actuation aerosol inhaler (2 puffs)] Route: js11 Inhalation; 07:14 Drug: Tessalon 200 mg Route: PO; marleni Signatures: Dispatcher [employer] EDNeil John,RN RN irisk Kate Reza, Reg Reg gb López Bueno, DO DO mm11 Gisela Posey, ELECTRICAL ELECTRONICS ENGINEER ELECTRICAL ELECTRONICS ENGINEER nilo Jona Moeller mm15 Thea Carlin,RN RN mv5 Elroy Ley js11 The chart was reviewed and I authenticate all verbal orders and agree with the evaluation and treatment provided.Attachments: 07:54 [facility] Payment Agreement 15 10/19 13:56 T-Sheet-- Draft Copy gb 13:56 ECG/EKG gb Chart Complete MTDD
== END 2016-10-18 08:00 | disposition home or self-care (01) ==
LOC: M ED 03:53
DX: J20.9 Acute bronchitis, unspecified (principal); E11.9 Type 2 diabetes mellitus without complications; I10 Essential (primary) hypertension; E78.00 Pure hypercholesterolemia, unspecified; M10.9 Gout, unspecified; Z79.899 Other long term (current) drug therapy; Z79.84 Long term (current) use of oral hypoglycemic drugs; Z79.4 Long term (current) use of insulin; Z88.6 Allergy status to analgesic agent; Z87.891 Personal history of nicotine dependence

== ENCOUNTER 2016-10-18 12:11 | Inpatient (IN) | payer OTHER ==
[~2016-10-18] VITALS: Ht 162.6 cm; Wt 79.4 kg
[2016-10-18] MEDS ORDERED: ISOVUE-370 76% 100ML VIAL (Q9967) As Ordered ONE (13:13)
--- NOTE | 2016-10-18 13:33 | REP ---
Clinical: Acute chest pain and shortness of breath. Technique: Axial contrast enhanced images from the thoracic inlet to the upper abdomen using 100 ml Isovue 370 intravenous contrast material with coronal and sagittal re-formations. Findings: Satisfactory enhancement of the pulmonary vasculature is achieved and no filling defects are identified to suggest pulmonary embolus. Thoracic aorta is normal caliber without aneurysm or dissection. Mild cardiomegaly suggested. Pericardium is normal. Bilateral lung hebert are clear without acute pulmonary parenchymal consolidation or atelectasis. No nodule or mass lesion. No pleural effusion/reaction. No pneumothorax. No adenopathy. Visualized liver contour suggest cirrhosis. Impression: No evidence for pulmonary embolus. Cardiomegaly. No acute pleuroparenchymal or mediastinal process. Signed by Zander Almanza MD 10/18/2016 01:26 P
[2016-10-18 13:35] LABS: MAGNESIUM LEVEL 1.3 MG/DL (1.8-2.4)
[2016-10-18] MEDS ORDERED: LEVO75TA34 PO (15:29)
[2016-10-18] MEDS ORDERED: SITA50TAB PO (15:29)
[2016-10-18] MEDS ORDERED: GABA-279 PO (15:29)
[2016-10-18] MEDS ORDERED: MAGN64TASA PO (15:29)
[2016-10-18] MEDS ORDERED: ALLO100T PO (15:29)
[2016-10-18] MEDS ORDERED: SERT25TA85 PO (15:31)
[2016-10-18] MEDS ORDERED: PRAV40TA2 PO (15:31)
[2016-10-18] MEDS ORDERED: LISI40TAB PO (15:31)
[2016-10-18] MEDS ORDERED: OMEP20CA3 PO (15:31)
[2016-10-18] MEDS ORDERED: INSUDET SC (15:31)
[2016-10-18] MEDS ORDERED: DEXTROSE 50% 50 ML SYRINGE IV PRN (16:15)
[2016-10-18] MEDS ORDERED: GLUCOSE 4 GM CHEW TABLET PO PRN (16:15)
[2016-10-18] MEDS ORDERED: GLUCAGON FOR INJ 1 MG VIAL (J1610) SC PRN (16:15)
--- NOTE | 2016-10-18 16:48 | REP ---
KUB ABDOMEN AND PELVIS: KUB films of the abdomen and pelvis were performed. There is no compelling evidence for bowel obstruction. Air is seen throughout the GI tract in a nonspecific pattern. There is mild diffuse distension which may represent a mild generalized ileus. There is contrast in the bladder from today's CT of the chest with contrast. There are degenerative changes of the spine. IMPRESSION: Nonspecific bowel gas pattern. Mild diffuse distension of bowel may represent a mild generalized ileus. No compelling evidence of bowel obstruction. Signed by Kerwin Mireles MD 10/19/2016 09:26 A
--- NOTE | 2016-10-18 17:45 | EDDOCDS ---
Physician Documentation [facility] Name: Troy Mena Age: 86 yrs Sex: Male : 1930 Arrival Date: 10/18/2016 Time: 12:11 Bed 7 Private MD: Gustavo Martin Disposition: 10/18/16 14:55 Hospitalization ordered by Neli Rosales for Inpatient Admission. Preliminary diagnosis are Weakness, Cough, Dehydration. - Bed requested for 4 [place]. - Status is Inpatient Admission. srm - Condition is Stable. - Problem is new. - Symptoms are unchanged. Historical: - Allergies: Aspirin (Unknown); - Home Meds: 1. allopurinol 100 mg Oral tab once daily 2. gabapentin 100 mg Oral cap 2 caps nightly 3. Januvia 50 mg oral tab once daily 4. Levoxyl 75 mcg Oral tab once daily 5. Mag 64 64 mg oral TbER daily 6. omeprazole 20 mg Oral cpDR 2 times per day 7. Pravachol 40 mg Oral tab once daily 8. lisinopril 40 mg Oral tab once daily 9. levemir insulin 55 u 4 pm 45 units daily - PMHx: Diabetes - IDDM: controlled; Gout; Hypercholesterolemia; Hypertension; - PSHx: left shoulder surgery; - Social history: Smoking status: Patient states former smoker of tobacco. No barriers to communication noted, The patient speaks fluent Kazakh, Speaks appropriately for age. - Family history: Not pertinent. - : Unable to assess if pt is on anticoagulants. Home medication list is obtained from the patient. - Exposure Risk Screening:: None identified. Vital Signs: 10/18 12:20 BP 164 / 80; Pulse 115; Resp 22; Temp 97.4; Pulse Ox 95% ; Pain 8/10; jam1 12:37 Pulse 70 MON; Pulse Ox 98% ; srm 12:37 BP 130 / 63 (auto/); srm 12:50 BP 132 / 63 (auto/); srm 12:50 Pulse 68 MON; Pulse Ox 99% ; srm 12:59 Weight 79.38 kg / 175 lbs; Height 5 ft. 4 in. (162.56 cm); jc4 14:09 BP 175 / 79 (auto/); srm 14:10 Pulse 98 MON; srm 14:39 BP 151 / 77 (auto/); srm 14:39 Pulse 102 MON; Resp 18; Pulse Ox 95% ; srm 15:09 BP 150 / 75 (auto/); srm 15:11 Pulse 104 MON; Pulse Ox 93% ; srm 15:39 BP 140 / 85 (auto/); srm 15:40 Pulse 94 MON; Resp 18; Pulse Ox 94% ; srm 17:08 BP 146 / 83; Pulse 94; Resp 18; Temp 98.3(O); Pulse Ox 96% on R/A; lr2 17:42 BP 112 / 74; Pulse 88; Resp 18; Pulse Ox 95% on R/A; srm 12:59 Body Mass Index 30.04 (79.38 kg, 162.56 cm) jc4 MDM: 12:23 ECG WITH READING ER PHYS+CARDIAG ordered. EDMS 12:43 IV Saline Lock ordered. ar2 12:43 Pulse ox continuous ordered. ar2 12:43 NS 0.9% 500 ml IV at bolus once ordered. ar2 12:44 morphine 2 mg IVP once ordered. ar2 12:44 Troponin Ordered. EDMS 12:44 CIP Ordered. EDMS 12:45 CT Chest Angio R/O PE Ordered. EDMS 12:49 MAGNESIUM LEVEL Ordered. EDMS 13:22 Motor Operator/Pulse Ox/q 15 min VS ordered. ar2 13:49 Financial registration complete. mm15 13:55 [facility] Payment Agreement was scanned into [employer] and attached to record. mm15 14:05 CIP Reviewed. ar2 14:05 MAGNESIUM LEVEL Reviewed. ar2 14:05 Troponin Reviewed. ar2 14:05 CT Chest Angio R/O PE Reviewed. ar2 14:23 Accucheck ordered. ar2 14:56 BED REQUEST+ADM ordered. EDMS 14:56 NS 0.9% 1000 ml IV at 100 mL/hr continuous ordered. ar2 15:39 Fingerstick Blood Sugar Ordered. EDMS 15:59 Admission / Observation Status ordered. EDMS 15:59 2 GRAM SODIUM DIET ordered. EDMS 16:00 Abdomen,Flat Plate KUB Ordered. EDMS 16:13 HEMOGLOBIN A1C Ordered. EDMS Point of Care Testing: Blood Glucose: 15:28 Blood Glucose: 229 mg/dL; srm Ranges: Administered Medications: 13:03 Drug: NS 0.9% 500 ml [sodium chloride 0.9 % intravenous solution] Route: IV; Rate: ja5 bolus; Site: right antecubital; 13:04 Drug: morphine 2 mg [morphine 2 mg/mL intravenous cartridge (1 mL)] Route: IVP; Site: jc4 right antecubital; 15:32 Drug: NS 0.9% 1000 ml [sodium chloride 0.9 % intravenous solution] Route: IV; Rate: 100 srm mL/hr; Site: right antecubital; Signatures: Dispatcher [employer] EDMS Nydia Gregory RN RN Isabel Duran RN RN Edgardo Phillips PA-C PA-C ar2 Nereida Vernon RN RN dsf Jona Moeller mm15 Charity Amos RN jc4 Yessenia Ivory RN ja5 The chart was reviewed and I authenticate all verbal orders and agree with the evaluation and treatment provided.Corrections: (The following items were deleted from the chart) 12:49 12:45 MAGNESIUM LEVEL+LAB ordered. EDMS EDMS 16:17 16:12 THYROID STIMULATING HORMONE ordered. EDMS EDMS 17:00 15:43 REGULAR+DIET ordered. EDMS EDMS Attachments: 13:55 [facility] Payment Agreement mm15 MTDD
--- NOTE | 2016-10-18 17:45 | EDDOCDS ---
Nurse's Notes [facility] Name: Troy Mena Age: 86 yrs Sex: Male : 1930 Arrival Date: 10/18/2016 Time: 12:11 Bed 7 Private MD: Gustavo Martin Diagnosis: Weakness;Cough;Dehydration Presentation: 10/18 12:16 Presenting complaint: EMS states: pt was discharged at 0300 diagnosed with strep and dsf was prescribed antibiotics. pt called today c/o SOB, CP and left shoulder pain. pt does have chronic left shoulder pain. Adult Sepsis Screening: Suicide/Homicide risk assessment- the patient denies having any suicidal and/or homicidal ideations and does not present with any other emotional, behavioral or mental health complaints. Status: Patient is not a service loss control consultant or dependent. Transition of care: patient was not received from another setting of care. 12:16 Acuity: DURAN Level 3 dsf 12:16 Method Of Arrival: Ambulance dsf 12:23 Presenting complaint: Patient states: pt reports he felt SOB, dizzy and his heart felt dsf funny. pt denies dizziness at this time. Adult Sepsis Screening: The patient does not have new or worsening altered mentation. Patient's respiratory rate is less than 22. Systolic blood pressure is greater than 100. Patient has a qSOFA score of 0- Negative Sepsis Screen. Triage Assessment: 12:24 General: Appears in no apparent distress, Behavior is appropriate for age, cooperative. dsf Pain: Location: anterior aspect of left upper chest and left shoulder Pain currently is 8 out of 10 on a pain scale. Quality of pain is described as squeezing. The patient is triaged at the bedside. See Assessment in Nurses Notes section of ED record. Neurological: Level of Consciousness is awake, alert. Cardiovascular: Capillary refill < 3 seconds Heart tones S1 S2 present. Respiratory: Onset: The symptoms/episode began/occurred today, Airway is patent Respiratory effort is even, unlabored, Respiratory pattern is regular, symmetrical, Breath sounds are clear bilaterally. Reports shortness of breath since today. GI: Abdomen is non- distended Bowel sounds present X 4 quads. Abd is soft and non tender X 4 quads. Derm: Skin is pink, warm & dry. Historical: - Allergies: Aspirin (Unknown); - Home Meds: 1. allopurinol 100 mg Oral tab once daily 2. gabapentin 100 mg Oral cap 2 caps nightly 3. Januvia 50 mg oral tab once daily 4. Levoxyl 75 mcg Oral tab once daily 5. Mag 64 64 mg oral TbER daily 6. omeprazole 20 mg Oral cpDR 2 times per day 7. Pravachol 40 mg Oral tab once daily 8. lisinopril 40 mg Oral tab once daily 9. levemir insulin 55 u 4 pm 45 units daily - PMHx: Diabetes - IDDM: controlled; Gout; Hypercholesterolemia; Hypertension; - PSHx: left shoulder surgery; - Social history: Smoking status: Patient states former smoker of tobacco. No barriers to communication noted, The patient speaks fluent Yoruba, Speaks appropriately for age. - Family history: Not pertinent. - : Unable to assess if pt is on anticoagulants. Home medication list is obtained from the patient. - Exposure Risk Screening:: None identified. Screenin:13 Screening information is obtained from the patient. Fall risk: At risk due to prior ja5 history of falls and patient uses cane to ambulate. Assistance ADL's: requires no assistance with activities of daily living. Abuse/DV Screen: The patient / caregiver reports he/she is: not in a situation that causes fear, pain or injury. Nutritional screening: On no prescribed diet. Advance Directives: Currently, there is no health care proxy. There is an active DNR order There is no living will. There is no Power of 911 Emergency Services Dispatcher. home support is adequate. Assessment: 13:08 General: Appears in no apparent distress, Behavior is appropriate for age, cooperative. ja5 Pain: Location: posterior aspect of left lateral abdomen Pain currently is 6 out of 10 on a pain scale. Neurological: Level of Consciousness is awake, alert, Oriented to person, place, time. Cardiovascular: Capillary refill < 3 seconds Heart tones S1 S2 present. Cardiovascular: Chest pain is located in left posterior. Respiratory: Airway is patent Respiratory effort is even, unlabored, Respiratory pattern is regular, symmetrical, Breath sounds are clear bilaterally. Derm: Skin is intact, Skin is pink, warm & dry. 14:10 General: Appears in no apparent distress, Behavior is appropriate for age, cooperative, srm pt sttod at bedside to urinate. needed assistance due to legs feeling weak. pt c/o " black spots" on right foot. examined feet and no black spots noted to either. scruff worker < 3 secs. 14:10 Neurological: Level of Consciousness is awake, alert, Oriented to person, place, time, srm Moves all extremities. Weakness Speech is normal, Facial symmetry appears normal. Respiratory: Airway is patent Respiratory effort is even, unlabored, Breath sounds are clear bilaterally. GI: Abdomen is non- distended Bowel sounds present X 4 quads. Abd is soft and non tender X 4 quads. 15:11 General: Appears in no apparent distress, Behavior is appropriate for age, cooperative, srm resting on stretcher. awaiting admitting MD. 16:03 Reassessment: Patient appears in no apparent distress at this time. occ dry cough. . srm Respiratory: Airway is patent Respiratory effort is even, unlabored. GI: No deficits noted. : No deficits noted. Musculoskeletal: No deficits noted. 17:42 General: Appears in no apparent distress, Behavior is appropriate for age, cooperative. srm Neurological: No deficits noted. EENT: No deficits noted. Respiratory: Airway is patent Respiratory effort is even, unlabored, Breath sounds are clear bilaterally. Vital Signs: 12:20 BP 164 / 80; Pulse 115; Resp 22; Temp 97.4; Pulse Ox 95% ; Pain 8/10; jam1 12:37 Pulse 70 MON; Pulse Ox 98% ; srm 12:37 BP 130 / 63 (auto/); srm 12:50 BP 132 / 63 (auto/); srm 12:50 Pulse 68 MON; Pulse Ox 99% ; srm 12:59 Weight 79.38 kg; Height 5 ft. 4 in. (162.56 cm); jc4 14:09 BP 175 / 79 (auto/); srm 14:10 Pulse 98 MON; srm 14:39 BP 151 / 77 (auto/); srm 14:39 Pulse 102 MON; Resp 18; Pulse Ox 95% ; srm 15:09 BP 150 / 75 (auto/); srm 15:11 Pulse 104 MON; Pulse Ox 93% ; srm 15:39 BP 140 / 85 (auto/); srm 15:40 Pulse 94 MON; Resp 18; Pulse Ox 94% ; srm 17:08 BP 146 / 83; Pulse 94; Resp 18; Temp 98.3(O); Pulse Ox 96% on R/A; lr2 17:42 BP 112 / 74; Pulse 88; Resp 18; Pulse Ox 95% on R/A; srm 12:59 Body Mass Index 30.04 (79.38 kg, 162.56 cm) jc4 ED Course: 12:12 Patient visited by Paulina Calderon PCA. rs6 12:12 Gustavo Martin is Private Physician. rs6 12:12 Yessenia Ivory,RN is Primary Nurse. rs6 12:12 Charity Amos, ARABELLA is Primary Nurse. rs6 12:12 Patient moved to Waiting rs6 12:12 Patient moved to I8 / 16 rs6 12:13 Patient moved to I1 / M1 rs6 12:18 Triage Initiated dsf 12:25 Patient visited by Nereida Vernon RN. dsf 12:28 [facility] ar2 12:28 Gordo Denney MD is Attending Physician. ar2 12:28 Patient visited by Edgardo Heath PA-C. ar2 13:01 Inserted saline lock: 20 gauge in right antecubital area. ja5 13:04 MAGNESIUM LEVEL Sent. jc4 13:04 CIP Sent. jc4 13:04 Troponin Sent. jc4 13:08 Patient visited by Yessenia Ivory RN. ja5 13:08 The patient / caregiver is instructed regarding the plan of care and ED course. jc4 13:50 Patient moved to 7 jam1 13:50 CT Chest Angio R/O PE Returned. EDMS 13:55 [facility] Payment Agreement was scanned into [employer] and attached to record. mm15 14:53 Neli Rosales is Hospitalizing Provider. ar2 15:21 Patient visited by Isabel Franklin RN. srm 17:10 report faxed to [facility] through computer. srm 17:11 Patient visited by Isabel Franklin RN. srm 17:23 Abdomen,Flat Plate KUB Returned. EDMS 17:42 No procedures done that require assistance. srm Administered Medications: 13:03 Drug: NS 0.9% 500 ml [sodium chloride 0.9 % intravenous solution] Route: IV; Rate: ja5 bolus; Site: right antecubital; 13:04 Drug: morphine 2 mg [morphine 2 mg/mL intravenous cartridge (1 mL)] Route: IVP; Site: jc4 right antecubital; 15:32 Drug: NS 0.9% 1000 ml [sodium chloride 0.9 % intravenous solution] Route: IV; Rate: 100 srm mL/hr; Site: right antecubital; Point of Care Testing: Blood Glucose: 15:28 Blood Glucose: 229 mg/dL; srm Ranges: Intake: 17:08 IV: 500.00ml (NS); Total: 500.00ml. srm Output: 14:39 Urine: 325.00ml (Voided); Total: 325.00ml. srm Order Results: Lab Order: Troponin; 10/18/16 13:00 Test: TROPONIN I; Value: < 0.02; Range: < 0.10; Units: NG/ML; Status: F Test Note: ; Troponin I Reference Interval for [employer] LOCI: 99th Percentile= 0.00-0.045 ng/ml Risk Stratification: <= 0.10 ng/ml Decreased Risk for Adverse Clinical Events. 0.10-1.50 ng/ml Increased Risk for Adverse Clinical Events. Evaluation of additional criterion and/or repeat testing in 2-6 hours is suggested to rule out myocardial damage. >= 1.50 ng/ml Indicative of Myocardial Injury. Lab Order: CIP; 10/18/16 13:00 Test: CPK CREATINE PHOSPHOKINASE; Value: 856; Range: 39-308; Abnormal: High; Units: U/L; Status: F Test: CK-MB VALUE MASS; Value: 14.1; Range: 0.0-3.6; Abnormal: Above high normal; Units: NG/ML; Status: F Test: MB/CK RELATIVE INDEX; Value: 1.64; Range: < OR =4; Status: F Test Note: ; DIAGNOSIS CRITERIA MMB ng/ml Relative Index (RI) NON-AMI < or = 5 N/A VEGA ZONE > 5 < or = 4 AMI > 5 > 4 Lab Order: MAGNESIUM LEVEL; 10/18/16 13:00 Test: MAGNESIUM LEVEL; Value: 1.3; Range: 1.8-2.4; Abnormal: Below low normal; Units: MG/DL; Status: F Lab Order: Fingerstick Blood Sugar; 10/18/16 15:25 Test: BEDSIDE GLUCOSE; Value: 229; Range: 83-110; Abnormal: Above high normal; Units: MG/DL; Status: F Lab Order: HEMOGLOBIN A1C; SPECM 10/18/16 13:00 Test: HEMOGLOBIN A1c; Value: 9.5; Range: 4.5-6.2; Abnormal: Above high normal; Units: %; Status: F Test: ESTIMATED AVERAGE GLUCOSE; Value: 226; Range: 60-110; Abnormal: Above high normal; Units: MG/DL; Status: F Lab Order: THYROID STIMULATING HORMONE; SPEC'M 10/18/16 13:00 Test: THYROID STIMULATING HORMONE; Value: 1.780; Range: 0.358-3.740; Units: uIU/ML; Status: F Radiology Order: CT Chest Angio R/O PE Test: CT Chest Angio R/O PE REASON FOR EXAMINATION: sob, left chest pain; Clinical: Acute chest pain and shortness of breath.; ; Technique: Axial contrast enhanced images from the thoracic inlet to the upper; abdomen using 100 ml Isovue 370 intravenous contrast material with coronal and; sagittal re-formations.; ; Findings: Satisfactory enhancement of the pulmonary vasculature is achieved and; no filling defects are identified to suggest pulmonary embolus. Thoracic aorta; is normal caliber without aneurysm or dissection. Mild cardiomegaly suggested.; Pericardium is normal. Bilateral lung hebert are clear without acute pulmonary; parenchymal consolidation or atelectasis. No nodule or mass lesion. No pleural; effusion/reaction. No pneumothorax. No adenopathy. Visualized liver contour; suggest cirrhosis.; ; Impression:; No evidence for pulmonary embolus.; Cardiomegaly.; No acute pleuroparenchymal or mediastinal process.; ; ; Signed by; Zander Almanza MD 10/18/2016 01:26 P; Radiology Order: Abdomen,Flat Plate KUB Test: Abdomen,Flat Plate KUB REASON FOR EXAMINATION: abd distension; KUB ABDOMEN AND PELVIS:; ; KUB films of the abdomen and pelvis were performed. There is no compelling; evidence for bowel obstruction. Air is seen throughout the GI tract in a; nonspecific pattern. There is mild diffuse distension which may represent a mild; generalized ileus. There is contrast in the bladder from today's CT of the chest; with contrast. There are degenerative changes of the spine.; ; IMPRESSION:; Nonspecific bowel gas pattern. Mild diffuse distension of bowel may represent a; mild generalized ileus. No compelling evidence of bowel obstruction.; ; Unreviewed; Outcome: 13:47 Admission hand-off: Other: report given to Isabel BELL . brennen 14:55 Decision to Hospitalize by Provider. ar2 17:42 Discharge Assessment: Patient awake, alert and oriented x 3. No cognitive and/or srm functional deficits noted. Patient verbalized understanding of disposition instructions. patient administered narcotics - no. The following High Risk Discharge criteria are identified: None. Admitted to Med/Surg accompanied by tech, via stretcher, with chart. Condition: stable. CT Study completed. Property :Personal belongings accompany Pt. 17:43 Patient left the ED. srm Signatures: Dispatcher Med[employer] EDMS Isabel Franklin, RN RN srm Janet Arellano, WAD IMPREGNATOR WAD IMPREGNATOR jam1 Edgardo Heath, CAMMIEC PA-C [email or web address] Charity Amos RN RN Nereida Chawla,RN RN dsf Jona Moeller mm15 Paulina Calderon, WAD IMPREGNATOR WAD IMPREGNATOR [email or web address] Yessenia IvoryRN RN Becky Andrew lr2 Corrections: (The following items were deleted from the chart) 15:21 14:10 General: Appears in no apparent distress, Behavior is appropriate for age, srm cooperative, pt sttod at bedside to urinate. needed assistance due to legs feeling weak. pt c/o " black spots" on right foot. examined feet and no black spots noted to either. scruff worker < 3 secs. srm MTDD
[2016-10-18 17:50] VITALS: BP 160/70
[2016-10-18] MEDS: HumaLOG INSULIN (NovoLOG) PER UNIT SC SCH ×2 (18:28→21:04)
--- NOTE | 2016-10-18 19:16 | HPE ---
DATE OF ADMISSION: 10/18/2016 PRIMARY CARE PROVIDER: Dr. Gustavo Martin HISTORY OF THE PRESENT ILLNESS: The patient is an 86-year-old male with a medical history significant for insulin-dependent diabetes, gout, hypercholesterolemia, hypertension. Initially presented to [facility] on 10/18/2016 early in the morning for continuous cough. The patient was seen and determined the patient was having bronchitis and the patient was sent home with antibiotics. Then, when the patient was at home, the patient felt alone and no one was around him and he felt anxious, then he started having a rapid heart rate; therefore, he came back to [facility] for further evaluation. The patient stated his cough is intermittent, and he does not remember any specific triggers. He suspects his symptom is related to his reflux disease. ALLERGIES: ASPIRIN. HOME MEDICATIONS: - allopurinol 100 mg by mouth daily - gabapentin 200 mg by mouth nightly - insulin detemir 55 units subcu nightly - Synthroid 75 mcg by mouth daily - lisinopril 40 mg by mouth daily - magnesium chloride 64 mg by mouth daily - omeprazole 20 mg by mouth twice a day - pravastatin 40 mg by mouth nightly - sertraline 25 mg by mouth daily - Januvia 15 mg by mouth daily PAST MEDICAL HISTORY: Insulin-dependent diabetes. Gout. Hypercholesterolemia. Hypertension. Cirrhosis. Chronic obstructive pulmonary disease (COPD). PAST SURGICAL HISTORY: Left shoulder surgery. SOCIAL HISTORY: The patient quit smoking many years ago. The patient quit alcohol use 20 years ago. No recreational drug use. The patient lives alone. The patient's is currently in a nursing facility. The patient feels since she was placed in a nursing facility, he feels alone and he does not feel he can take care of himself. REVIEW OF SYSTEMS: GENERAL: No fever, no chills. HEENT: No vision change. No auditory changes. CARDIOVASCULAR: No chest pain. No palpitations. RESPIRATORY: The patient complained about severe cough that happened early on 10/18/2016 and completely resolved now. No sputum production. No wheezing. GASTROINTESTINAL: Has a history of reflux disease. No abdominal pain. No nausea, no vomiting. MUSCULOSKELETAL: No muscle pain or joint pain. NEUROLOGICAL: No numbness. No tingling. OBJECTIVE: VITAL SIGNS: Blood pressure is 164/80, pulse is 115, respirations 22, temperature 97.4, pulse oximetry is 95% in room air. Body weight is 79.38 kg. Body height is 162.56 cm. GENERAL: No sign of acute distress. Alert and oriented times three. HEENT: Normocephalic, atraumatic. Extraocular motor grossly intact. CARDIOVASCULAR: Positive S1, S2, regular rate. LUNGS: Clear to auscultation bilaterally. No wheezing or rhonchi. ABDOMEN: Obese, mildly distended, soft. EXTREMITIES: No edema, no sign of cyanosis. NEUROLOGICAL: Sensation to fine touch grossly intact. Muscle strength 5/5. LABORATORY DATA: WBC 5.5, hemoglobin 12.1, hematocrit 36.8, platelet count is 156. Sodium 143, potassium 3.8, chloride is 108, carbon dioxide 27, BUN 27, creatinine is 1.49, GFR is 47.5, fasting glucose 221, calcium 9, total CK is 434. Troponin I is less than 0.02. BNP is 50.7. ASSESSMENT AND PLAN: 1. Symptomatic tachycardia. The patient will be admitted to the medical-surgical floor under observation status. Will continue to monitor the patient's vitals. It is a possibility the patient may have tachycardia due to anxiety or previous respiratory symptoms. The patient's respiratory symptoms have been almost completely resolved. If the patient has persistent tachycardia, will manage with new medications. 2. Insulin-dependent diabetes. The patient will be on Levemir 55 units nightly and covering with sliding scale. The patient will be on a consistent carbohydrate diet. 3. Intermittent cough. Etiology unsure at this moment. Imaging studies have been negative and at the current encounter, the patient does not have any symptoms. The patient has been on omeprazole for his gastroesophageal reflux disease (GERD). 4. History of chronic obstructive pulmonary disease (COPD). 5. History of cirrhosis. 6. Hypothyroidism. Check thyroid-stimulating hormone (TSH). Continue Synthroid. 7. History of hiatal hernia. 8. Gastroesophageal reflux disease, on omeprazole. 9. Depression. The patient is on Zoloft. 10. Hypertension. On lisinopril. 11. Gout. On allopurinol. 12. Deep vein thrombosis (DVT) prophylaxis. Heparin. DISPOSITION: Currently, we are managing the patient for acute medical issues. There is a concern that the patient may need placement due to patient expressed anxiety and concern for his home living situation. We have consulted patient and family services (PFS) to assist on this issue. KAILASH
[2016-10-18] MEDS: MAGNESIUM CHLORIDE 64 MG TABCR (SLO MAG) PO SCH (19:42)
[2016-10-18] MEDS: ACETAMINOPHEN TAB 650MG DOSE (2X325MG) PO PRN (19:43)
[2016-10-18] MEDS: OMEPRAZOLE 20 MG CAP PO SCH (21:03)
[2016-10-18] MEDS: PRAVASTATIN 20 MG TAB PO SCH (21:04)
[2016-10-18] MEDS: GABAPENTIN 100 MG CAP PO SCH (21:04)
[2016-10-18] MEDS: HEPARIN SOD (PORCINE) 5000 UNITS/ML VIAL SC SCH (21:04)
[2016-10-18] MEDS: LEVEMIR (INSULIN DETEMIR) 1 UNITS/0.01ML SC SCH (21:05)
[2016-10-18 22:00] VITALS: BP 155/74
[2016-10-19] MEDS: SIMETHICONE 80 MG CHEW TAB PO PRN ×3 (05:33→21:55)
[2016-10-19] MEDS: HEPARIN SOD (PORCINE) 5000 UNITS/ML VIAL SC SCH ×3 (05:33→21:55)
[2016-10-19] MEDS: LEVOTHYROXINE 0.075 MG TAB (75 MCG) PO SCH (05:33)
[2016-10-19 06:00] VITALS: BP 164/74
[2016-10-19 06:22] LABS: MEAN CORPUSCULAR HEMOGLOBIN 30.9 pg (27.0-33.0); MEAN CORPUSCULAR HGB CONC 32.1 g/dl (32.0-36.5); MEAN CORPUSCULAR VOLUME 96.3 fl (80.0-96.0); RED CELL DISTRIBUTION WIDTH 13.6 % (11.5-14.5); WHITE BLOOD COUNT 5.3 K/mm3 (4.0-10.0)
[2016-10-19 06:55] LABS: ANION GAP 8 MEQ/L (8-16); BLOOD UREA NITROGEN 17 MG/DL (7-18); CALCIUM LEVEL 8.6 MG/DL (8.8-10.2); CARBON DIOXIDE LEVEL 28 MEQ/L (21-32); CHLORIDE LEVEL 108 MEQ/L (98-107); GLOMERULAR FILTRATION RATE > 60.0 (>35); GLUCOSE, FASTING 187 MG/DL (83-110); MAGNESIUM LEVEL 1.5 MG/DL (1.8-2.4); POTASSIUM SERUM 3.9 MEQ/L (3.5-5.1); SODIUM LEVEL 144 MEQ/L (136-145)
--- NOTE | 2016-10-19 07:59 | ECGEPIP ---
Stationary ECG Study [facility] - ED Test Date: 2016-10-18 Pat Name: WILFRIDO ESTRADA Department: Room: - Gender: M Counseling Psychologist: iris : 1930 Requested By: ERNESTINE CHAPMAN PA-C. Order Number: [id number] Reading MD: Jenise Wang Measurements Intervals [place] Rate: 106 P: 58 RI: 172 QRS: 27 QRSD: 89 T: 73 QT: 328 QTc: 435 Interpretive Statements SINUS TACHYCARDIA NONSPECIFIC ST & T-WAVE ABNORMALITY ABNORMAL RHYTHM ECG INCREASED RATE 10/18/16 4:50 Electronically Signed On 10-19-2016 7:59:40 EST by Jenise Wang
[2016-10-19] MEDS: ALLOPURINOL 100 MG TAB PO SCH (08:56)
[2016-10-19] MEDS: OMEPRAZOLE 20 MG CAP PO SCH ×2 (08:56→21:55)
[2016-10-19] MEDS: LISINOPRIL 40 MG TAB PO SCH (08:56)
[2016-10-19] MEDS: SERTRALINE HCL 25 MG TABLET PO SCH (08:58)
[2016-10-19] MEDS: HumaLOG INSULIN (NovoLOG) PER UNIT SC SCH ×4 (08:58→21:00)
[2016-10-19] MEDS ORDERED: SITagliptin 50 MG TAB (JANUVIA) PO SCH (09:00)
[2016-10-19] MEDS: MAGNESIUM CHLORIDE 64 MG TABCR (SLO MAG) PO SCH (09:00)
[2016-10-19] MEDS ORDERED: MAG SULF 1GM/100ML (MAG RUN) 1 GM in APPROPRIATE DILUENT 1 EA IV ONE (13:15)
[2016-10-19] MEDS ORDERED: MOM 30ML SUSPENSION UDC PO PRN (13:15)
[2016-10-19] MEDS ORDERED: ONDANSETRON 4MG/2ML VIAL (J2405) IV PRN (13:15)
[2016-10-19 14:00] VITALS: BP 144/67
[2016-10-19] MEDS: SENOKOT S TAB PO SCH ×2 (14:20→21:55)
[2016-10-19] MEDS: ACETAMINOPHEN TAB 650MG DOSE (2X325MG) PO PRN ×2 (14:27→21:55)
--- NOTE | 2016-10-19 19:27 | IPN ---
DATE: 10/19/2016 Mr. Mena is feeling a little better today. He says that he is still quite weak. He has no complaints of pain, chest pain, or shortness of breath. He has been tolerating a diet. Says that it has been difficult since his has been institutionalized for care. Temperature is 98.8, pulse 71, respiratory rate 18, blood pressure is 164/74, 92% on room air. Input and output notable for a negative fluid balance of -130. He is awake, appropriately interactive and pleasantly conversant. Somewhat circuitous in his speech. Breathing is symmetrical and rested. Heart is distant sounding. Normal S1, S2. He is not tachycardic. Abdomen is soft, doughy, nontender. White cell count 5.3, hemoglobin 12.3, and platelets 448. BUN 17, creatinine 1.2. CT angiogram shows no pulmonary embolus. Abdominal x-ray shows nonspecific bowel gas pattern. EKG shows sinus tachycardia. ASSESSMENT: This is an 86-year-old who presented with sinus tachycardia. PLAN: 1. Tachycardia, appears to be resolved and this could be related to respiratory or abdominal symptoms. He seems to appear pretty well at the moment. I have encouraged him to get out of bed. He can eat and drink as tolerated. 2. The patient has insulin-dependent diabetes. He is on Levemir and sliding scale. 3. The patient has had cough and has a history of chronic obstructive pulmonary disease (COPD). If cough continues, he may benefit from steroids and respiratory therapy. 4. The patient has a history of cirrhosis. 5. The patient has hypothyroidism. 6. The patient has hiatal hernia. 7. The patient has depression. 8. The patient has hypertension by history and is on Lisinopril at home. 9. The patient has gout. 10. The patient has appropriate deep vein thrombosis (DVT) prophylaxis. The patient was discussed at multidisciplinary rounds. The patient may require increased services at home or perhaps a different living arrangement.
[2016-10-19] MEDS: PRAVASTATIN 20 MG TAB PO SCH (21:54)
[2016-10-19] MEDS: GABAPENTIN 100 MG CAP PO SCH (21:55)
[2016-10-19] MEDS: LEVEMIR (INSULIN DETEMIR) 1 UNITS/0.01ML SC SCH (21:56)
[2016-10-19 22:00] VITALS: BP 116/56
[2016-10-20] MEDS: ACETAMINOPHEN TAB 650MG DOSE (2X325MG) PO PRN ×2 (03:59→17:14)
[2016-10-20] MEDS: HEPARIN SOD (PORCINE) 5000 UNITS/ML VIAL SC SCH ×3 (05:51→21:55)
[2016-10-20] MEDS: LEVOTHYROXINE 0.075 MG TAB (75 MCG) PO SCH (05:51)
[2016-10-20] MEDS: SIMETHICONE 80 MG CHEW TAB PO PRN (05:51)
[2016-10-20 06:00] VITALS: BP 131/64
[2016-10-20 06:10] LABS: MEAN CORPUSCULAR HEMOGLOBIN 30.8 pg (27.0-33.0); MEAN CORPUSCULAR HGB CONC 32.9 g/dl (32.0-36.5); MEAN CORPUSCULAR VOLUME 93.8 fl (80.0-96.0); RED CELL DISTRIBUTION WIDTH 13.6 % (11.5-14.5); WHITE BLOOD COUNT 3.9 K/mm3 (4.0-10.0)
[2016-10-20 06:13] LABS: CALCIUM LEVEL 8.9 MG/DL (8.8-10.2); CREATININE FOR GFR 1.22 MG/DL (0.70-1.30); GLOMERULAR FILTRATION RATE 59.8 (>35); MAGNESIUM LEVEL 1.8 MG/DL (1.8-2.4); POTASSIUM SERUM 3.7 MEQ/L (3.5-5.1)
[2016-10-20] MEDS ORDERED: IBUPROFEN 800 MG TAB PO ONE (06:15)
[2016-10-20] MEDS ORDERED: NORCO, ANEXSIA 5/325MG TABLET (HYDROcodone/ACETAMINOPHEN) PO ONE (06:30)
[2016-10-20] MEDS: HumaLOG INSULIN (NovoLOG) PER UNIT SC SCH ×4 (08:12→21:55)
[2016-10-20] MEDS: LISINOPRIL 40 MG TAB PO SCH (08:12)
[2016-10-20] MEDS: OMEPRAZOLE 20 MG CAP PO SCH ×2 (08:12→21:56)
[2016-10-20] MEDS: SENOKOT S TAB PO SCH ×2 (08:12→21:56)
[2016-10-20] MEDS: SERTRALINE HCL 25 MG TABLET PO SCH (08:12)
[2016-10-20] MEDS: MAGNESIUM CHLORIDE 64 MG TABCR (SLO MAG) PO SCH (08:12)
[2016-10-20] MEDS: ALLOPURINOL 100 MG TAB PO SCH (08:12)
[2016-10-20] MEDS ORDERED: PREVNAR 13 VACCINE SYRINGE (CPT CODE:90670) IM ONE (09:00)
[2016-10-20] MEDS ORDERED: OSELTAMIVIR PHOSPHATE 75 MG CAP (TAMIFLU) PO SCH (09:00)
[2016-10-20 14:00] VITALS: BP 141/67
--- NOTE | 2016-10-20 17:37 | IPN ---
DATE: 10/20/2016 SUBJECTIVE: Mr. Mena says he continues to feel weak this morning. He has no complaints of chest pain or shortness of breath. Leckrone weak when getting to the bathroom. OBJECTIVE: VITAL SIGNS: Temperature 97.7, pulse 70, respiratory rate 17, blood pressure 131/64, 94% on room air. Intake and output notable for positive fluid balance of 940. Two bowel movements yesterday. GENERAL: He is awake and appropriately interactive, pleasantly conversant. LUNGS: Breathing is symmetrical with some airway noise. ABDOMEN: Soft, doughy, somewhat distended and tympanic but nontender. EXTREMITIES: No significant lower extremity edema. LABORATORY DATA: White count 2.9, hemoglobin 11.4, platelets of 138. BUN 17, creatinine 1.22, magnesium 1.8. Respiratory panel is pending. ASSESSMENT: An 86-year-old who presented with sinus tachycardia. PLAN: 1. The patient has not been tachycardic and this seems to have been related to respiratory abdominal symptoms. He should continue to get out of bed. I have asked for a home safety evaluation. We will continue to monitor him clinically. It would be reasonable to repeat an electrocardiogram (EKG) should he have further symptoms. 2. The patient has insulin-dependent diabetes, on Levemir and sliding scale. 3. The patient had cough and history of chronic obstructive pulmonary disease (COPD). I did send a respiratory panel to potentially aid in his diagnosis. 4. The patient has a history of cirrhosis. 5. The patient has hypothyroidism. 6. The patient has a hiatal hernia. 7. The patient has depression. 8. The patient has hypertension by history and has lisinopril at home. 9. The patient has gout. 10. The patient has appropriate deep venous thrombosis (DVT) prophylaxis.
--- NOTE | 2016-10-20 18:45 | EDDOCDS ---
Physician Documentation [facility] Name: Troy Mena Age: 86 yrs Sex: Male : 1930 Arrival Date: 10/18/2016 Time: 12:11 Bed 7 Private MD: Gustavo Martin Disposition: 10/18/16 14:55 Hospitalization ordered by Neli Rosales for Inpatient Admission. Preliminary diagnosis are Weakness, Cough, Dehydration. - Bed requested for 4 [place]. - Status is Inpatient Admission. srm - Condition is Stable. - Problem is new. - Symptoms are unchanged. Historical: - Allergies: Aspirin (Unknown); - Home Meds: 1. allopurinol 100 mg Oral tab once daily 2. gabapentin 100 mg Oral cap 2 caps nightly 3. Januvia 50 mg oral tab once daily 4. Levoxyl 75 mcg Oral tab once daily 5. Mag 64 64 mg oral TbER daily 6. omeprazole 20 mg Oral cpDR 2 times per day 7. Pravachol 40 mg Oral tab once daily 8. lisinopril 40 mg Oral tab once daily 9. levemir insulin 55 u 4 pm 45 units daily - PMHx: Diabetes - IDDM: controlled; Gout; Hypercholesterolemia; Hypertension; - PSHx: left shoulder surgery; - Social history: Smoking status: Patient states former smoker of tobacco. No barriers to communication noted, The patient speaks fluent Thai, Speaks appropriately for age. - Family history: Not pertinent. - : Unable to assess if pt is on anticoagulants. Home medication list is obtained from the patient. - Exposure Risk Screening:: None identified. Vital Signs: 10/18 12:20 BP 164 / 80; Pulse 115; Resp 22; Temp 97.4; Pulse Ox 95% ; Pain 8/10; jam1 12:37 Pulse 70 MON; Pulse Ox 98% ; srm 12:37 BP 130 / 63 (auto/); srm 12:50 BP 132 / 63 (auto/); srm 12:50 Pulse 68 MON; Pulse Ox 99% ; srm 12:59 Weight 79.38 kg / 175 lbs; Height 5 ft. 4 in. (162.56 cm); jc4 14:09 BP 175 / 79 (auto/); srm 14:10 Pulse 98 MON; srm 14:39 BP 151 / 77 (auto/); srm 14:39 Pulse 102 MON; Resp 18; Pulse Ox 95% ; srm 15:09 BP 150 / 75 (auto/); srm 15:11 Pulse 104 MON; Pulse Ox 93% ; srm 15:39 BP 140 / 85 (auto/); srm 15:40 Pulse 94 MON; Resp 18; Pulse Ox 94% ; srm 17:08 BP 146 / 83; Pulse 94; Resp 18; Temp 98.3(O); Pulse Ox 96% on R/A; lr2 17:42 BP 112 / 74; Pulse 88; Resp 18; Pulse Ox 95% on R/A; srm 12:59 Body Mass Index 30.04 (79.38 kg, 162.56 cm) jc4 MDM: 12:23 ECG WITH READING ER PHYS+CARDIAG ordered. EDMS 12:43 IV Saline Lock ordered. ar2 12:43 Pulse ox continuous ordered. ar2 12:43 NS 0.9% 500 ml IV at bolus once ordered. ar2 12:44 morphine 2 mg IVP once ordered. ar2 12:44 Troponin Ordered. EDMS 12:44 CIP Ordered. EDMS 12:45 CT Chest Angio R/O PE Ordered. EDMS 12:49 MAGNESIUM LEVEL Ordered. EDMS 13:22 Desk Clerk/Pulse Ox/q 15 min VS ordered. ar2 13:49 Financial registration complete. mm15 13:55 [facility] Payment Agreement was scanned into [employer] and attached to record. mm15 14:05 CIP Reviewed. ar2 14:05 MAGNESIUM LEVEL Reviewed. ar2 14:05 Troponin Reviewed. ar2 14:05 CT Chest Angio R/O PE Reviewed. ar2 14:23 Accucheck ordered. ar2 14:56 BED REQUEST+ADM ordered. EDMS 14:56 NS 0.9% 1000 ml IV at 100 mL/hr continuous ordered. ar2 15:39 Fingerstick Blood Sugar Ordered. EDMS 15:59 Admission / Observation Status ordered. EDMS 15:59 2 GRAM SODIUM DIET ordered. EDMS 16:00 Abdomen,Flat Plate KUB Ordered. EDMS 16:13 HEMOGLOBIN A1C Ordered. EDMS 10/19 13:58 T-Sheet-- Draft Copy was scanned into [employer] and attached to record. gb 13:58 PCR was scanned into [employer] and attached to record. gb 13:59 ECG/EKG was scanned into [employer] and attached to record. gb 13:59 Trend VS was scanned into [employer] and attached to record. Point of Care Testing: Blood Glucose: 10/18 15:28 Blood Glucose: 229 mg/dL; srm Ranges: Administered Medications: 13:03 Drug: NS 0.9% 500 ml [sodium chloride 0.9 % intravenous solution] Route: IV; Rate: ja5 bolus; Site: right antecubital; 13:04 Drug: morphine 2 mg [morphine 2 mg/mL intravenous cartridge (1 mL)] Route: IVP; Site: jc4 right antecubital; 15:32 Drug: NS 0.9% 1000 ml [sodium chloride 0.9 % intravenous solution] Route: IV; Rate: 100 srm mL/hr; Site: right antecubital; Signatures: Dispatcher [employer] EDMS Nydia Gregory RN RN Isabel Francois RN RN srm Barnhardt, Kate, Reg Reg gb Edgardo Heath, ZAC FRANK ar2 Nereida Vernon RN RN dsf Jona Moeller mm15 Charity Amos RN jc4 Yessenia Ivory RN ja5 The chart was reviewed and I authenticate all verbal orders and agree with the evaluation and treatment provided.Corrections: (The following items were deleted from the chart) 12:49 12:45 MAGNESIUM LEVEL+LAB ordered. EDMS EDMS 16:17 16:12 THYROID STIMULATING HORMONE ordered. EDMS EDMS 17:00 15:43 REGULAR+DIET ordered. EDMS EDMS Attachments: 13:55 [facility] Payment Agreement mm15 10/19 13:58 T-Sheet-- Draft Copy 13:59 ECG/EKG Chart Complete MTDD
--- NOTE | 2016-10-20 18:45 | EDDOCDS ---
Physician Documentation [facility] Name: Troy Mena Age: 86 yrs Sex: Male : 1930 Arrival Date: 10/18/2016 Time: 12:11 Bed 7 Private MD: Gustavo Martin Disposition: 10/18/16 14:55 Hospitalization ordered by Neli Rosales for Inpatient Admission. Preliminary diagnosis are Weakness, Cough, Dehydration. - Bed requested for 4 [place]. - Status is Inpatient Admission. srm - Condition is Stable. - Problem is new. - Symptoms are unchanged. Historical: - Allergies: Aspirin (Unknown); - Home Meds: 1. allopurinol 100 mg Oral tab once daily 2. gabapentin 100 mg Oral cap 2 caps nightly 3. Januvia 50 mg oral tab once daily 4. Levoxyl 75 mcg Oral tab once daily 5. Mag 64 64 mg oral TbER daily 6. omeprazole 20 mg Oral cpDR 2 times per day 7. Pravachol 40 mg Oral tab once daily 8. lisinopril 40 mg Oral tab once daily 9. levemir insulin 55 u 4 pm 45 units daily - PMHx: Diabetes - IDDM: controlled; Gout; Hypercholesterolemia; Hypertension; - PSHx: left shoulder surgery; - Social history: Smoking status: Patient states former smoker of tobacco. No barriers to communication noted, The patient speaks fluent Yoruba, Speaks appropriately for age. - Family history: Not pertinent. - : Unable to assess if pt is on anticoagulants. Home medication list is obtained from the patient. - Exposure Risk Screening:: None identified. Vital Signs: 10/18 12:20 BP 164 / 80; Pulse 115; Resp 22; Temp 97.4; Pulse Ox 95% ; Pain 8/10; jam1 12:37 Pulse 70 MON; Pulse Ox 98% ; srm 12:37 BP 130 / 63 (auto/); srm 12:50 BP 132 / 63 (auto/); srm 12:50 Pulse 68 MON; Pulse Ox 99% ; srm 12:59 Weight 79.38 kg / 175 lbs; Height 5 ft. 4 in. (162.56 cm); jc4 14:09 BP 175 / 79 (auto/); srm 14:10 Pulse 98 MON; srm 14:39 BP 151 / 77 (auto/); srm 14:39 Pulse 102 MON; Resp 18; Pulse Ox 95% ; srm 15:09 BP 150 / 75 (auto/); srm 15:11 Pulse 104 MON; Pulse Ox 93% ; srm 15:39 BP 140 / 85 (auto/); srm 15:40 Pulse 94 MON; Resp 18; Pulse Ox 94% ; srm 17:08 BP 146 / 83; Pulse 94; Resp 18; Temp 98.3(O); Pulse Ox 96% on R/A; lr2 17:42 BP 112 / 74; Pulse 88; Resp 18; Pulse Ox 95% on R/A; srm 12:59 Body Mass Index 30.04 (79.38 kg, 162.56 cm) jc4 MDM: 12:23 ECG WITH READING ER PHYS+CARDIAG ordered. EDMS 12:43 IV Saline Lock ordered. ar2 12:43 Pulse ox continuous ordered. ar2 12:43 NS 0.9% 500 ml IV at bolus once ordered. ar2 12:44 morphine 2 mg IVP once ordered. ar2 12:44 Troponin Ordered. EDMS 12:44 CIP Ordered. EDMS 12:45 CT Chest Angio R/O PE Ordered. EDMS 12:49 MAGNESIUM LEVEL Ordered. EDMS 13:22 Preparation Supervisor Freezing/Pulse Ox/q 15 min VS ordered. ar2 13:49 Financial registration complete. mm15 13:55 [facility] Payment Agreement was scanned into [employer] and attached to record. mm15 14:05 CIP Reviewed. ar2 14:05 MAGNESIUM LEVEL Reviewed. ar2 14:05 Troponin Reviewed. ar2 14:05 CT Chest Angio R/O PE Reviewed. ar2 14:23 Accucheck ordered. ar2 14:56 BED REQUEST+ADM ordered. EDMS 14:56 NS 0.9% 1000 ml IV at 100 mL/hr continuous ordered. ar2 15:39 Fingerstick Blood Sugar Ordered. EDMS 15:59 Admission / Observation Status ordered. EDMS 15:59 2 GRAM SODIUM DIET ordered. EDMS 16:00 Abdomen,Flat Plate KUB Ordered. EDMS 16:13 HEMOGLOBIN A1C Ordered. EDMS 10/19 13:58 T-Sheet-- Draft Copy was scanned into [employer] and attached to record. gb 13:58 PCR was scanned into [employer] and attached to record. gb 13:59 ECG/EKG was scanned into [employer] and attached to record. gb 13:59 Trend VS was scanned into [employer] and attached to record. Point of Care Testing: Blood Glucose: 10/18 15:28 Blood Glucose: 229 mg/dL; srm Ranges: Administered Medications: 13:03 Drug: NS 0.9% 500 ml [sodium chloride 0.9 % intravenous solution] Route: IV; Rate: ja5 bolus; Site: right antecubital; 13:04 Drug: morphine 2 mg [morphine 2 mg/mL intravenous cartridge (1 mL)] Route: IVP; Site: jc4 right antecubital; 15:32 Drug: NS 0.9% 1000 ml [sodium chloride 0.9 % intravenous solution] Route: IV; Rate: 100 srm mL/hr; Site: right antecubital; Signatures: Dispatcher [employer] EDMS Nydia Gregory RN RN Isabel Francois RN RN srm Barnhardt, Kate, Reg Reg gb Edgardo Heath, ZAC FRANK ar2 Neerida Vernon RN RN dsf Jona Moeller mm15 Charity Amos RN jc4 Yessenia Iovry RN ja5 The chart was reviewed and I authenticate all verbal orders and agree with the evaluation and treatment provided.Corrections: (The following items were deleted from the chart) 12:49 12:45 MAGNESIUM LEVEL+LAB ordered. EDMS EDMS 16:17 16:12 THYROID STIMULATING HORMONE ordered. EDMS EDMS 17:00 15:43 REGULAR+DIET ordered. EDMS EDMS Attachments: 13:55 [facility] Payment Agreement mm15 10/19 13:58 T-Sheet-- Draft Copy 13:59 ECG/EKG Chart Complete MTDD
--- NOTE | 2016-10-20 18:45 | EDDOCDS ---
Nurse's Notes [facility] Name: Troy Mena Age: 86 yrs Sex: Male : 1930 Arrival Date: 10/18/2016 Time: 12:11 Bed 7 Private MD: Gustavo Martin Diagnosis: Weakness;Cough;Dehydration Presentation: 10/18 12:16 Presenting complaint: EMS states: pt was discharged at 0300 diagnosed with strep and dsf was prescribed antibiotics. pt called today c/o SOB, CP and left shoulder pain. pt does have chronic left shoulder pain. Adult Sepsis Screening: Suicide/Homicide risk assessment- the patient denies having any suicidal and/or homicidal ideations and does not present with any other emotional, behavioral or mental health complaints. Status: Patient is not a web services manager or dependent. Transition of care: patient was not received from another setting of care. 12:16 Acuity: DURAN Level 3 dsf 12:16 Method Of Arrival: Ambulance dsf 12:23 Presenting complaint: Patient states: pt reports he felt SOB, dizzy and his heart felt dsf funny. pt denies dizziness at this time. Adult Sepsis Screening: The patient does not have new or worsening altered mentation. Patient's respiratory rate is less than 22. Systolic blood pressure is greater than 100. Patient has a qSOFA score of 0- Negative Sepsis Screen. Triage Assessment: 12:24 General: Appears in no apparent distress, Behavior is appropriate for age, cooperative. dsf Pain: Location: anterior aspect of left upper chest and left shoulder Pain currently is 8 out of 10 on a pain scale. Quality of pain is described as squeezing. The patient is triaged at the bedside. See Assessment in Nurses Notes section of ED record. Neurological: Level of Consciousness is awake, alert. Cardiovascular: Capillary refill < 3 seconds Heart tones S1 S2 present. Respiratory: Onset: The symptoms/episode began/occurred today, Airway is patent Respiratory effort is even, unlabored, Respiratory pattern is regular, symmetrical, Breath sounds are clear bilaterally. Reports shortness of breath since today. GI: Abdomen is non- distended Bowel sounds present X 4 quads. Abd is soft and non tender X 4 quads. Derm: Skin is pink, warm & dry. Historical: - Allergies: Aspirin (Unknown); - Home Meds: 1. allopurinol 100 mg Oral tab once daily 2. gabapentin 100 mg Oral cap 2 caps nightly 3. Januvia 50 mg oral tab once daily 4. Levoxyl 75 mcg Oral tab once daily 5. Mag 64 64 mg oral TbER daily 6. omeprazole 20 mg Oral cpDR 2 times per day 7. Pravachol 40 mg Oral tab once daily 8. lisinopril 40 mg Oral tab once daily 9. levemir insulin 55 u 4 pm 45 units daily - PMHx: Diabetes - IDDM: controlled; Gout; Hypercholesterolemia; Hypertension; - PSHx: left shoulder surgery; - Social history: Smoking status: Patient states former smoker of tobacco. No barriers to communication noted, The patient speaks fluent Tajik, Speaks appropriately for age. - Family history: Not pertinent. - : Unable to assess if pt is on anticoagulants. Home medication list is obtained from the patient. - Exposure Risk Screening:: None identified. Screenin:13 Screening information is obtained from the patient. Fall risk: At risk due to prior ja5 history of falls and patient uses cane to ambulate. Assistance ADL's: requires no assistance with activities of daily living. Abuse/DV Screen: The patient / caregiver reports he/she is: not in a situation that causes fear, pain or injury. Nutritional screening: On no prescribed diet. Advance Directives: Currently, there is no health care proxy. There is an active DNR order There is no living will. There is no Power of Motion Picture Photographer. home support is adequate. Assessment: 13:08 General: Appears in no apparent distress, Behavior is appropriate for age, cooperative. ja5 Pain: Location: posterior aspect of left lateral abdomen Pain currently is 6 out of 10 on a pain scale. Neurological: Level of Consciousness is awake, alert, Oriented to person, place, time. Cardiovascular: Capillary refill < 3 seconds Heart tones S1 S2 present. Cardiovascular: Chest pain is located in left posterior. Respiratory: Airway is patent Respiratory effort is even, unlabored, Respiratory pattern is regular, symmetrical, Breath sounds are clear bilaterally. Derm: Skin is intact, Skin is pink, warm & dry. 14:10 General: Appears in no apparent distress, Behavior is appropriate for age, cooperative, srm pt sttod at bedside to urinate. needed assistance due to legs feeling weak. pt c/o " black spots" on right foot. examined feet and no black spots noted to either. 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 14:10 Neurological: Level of Consciousness is awake, alert, Oriented to person, place, time, srm Moves all extremities. Weakness Speech is normal, Facial symmetry appears normal. Respiratory: Airway is patent Respiratory effort is even, unlabored, Breath sounds are clear bilaterally. GI: Abdomen is non- distended Bowel sounds present X 4 quads. Abd is soft and non tender X 4 quads. 15:11 General: Appears in no apparent distress, Behavior is appropriate for age, cooperative, srm resting on stretcher. awaiting admitting MD. 16:03 Reassessment: Patient appears in no apparent distress at this time. occ dry cough. . srm Respiratory: Airway is patent Respiratory effort is even, unlabored. GI: No deficits noted. : No deficits noted. Musculoskeletal: No deficits noted. 17:42 General: Appears in no apparent distress, Behavior is appropriate for age, cooperative. srm Neurological: No deficits noted. EENT: No deficits noted. Respiratory: Airway is patent Respiratory effort is even, unlabored, Breath sounds are clear bilaterally. Vital Signs: 12:20 BP 164 / 80; Pulse 115; Resp 22; Temp 97.4; Pulse Ox 95% ; Pain 8/10; jam1 12:37 Pulse 70 MON; Pulse Ox 98% ; srm 12:37 BP 130 / 63 (auto/); srm 12:50 BP 132 / 63 (auto/); srm 12:50 Pulse 68 MON; Pulse Ox 99% ; srm 12:59 Weight 79.38 kg; Height 5 ft. 4 in. (162.56 cm); jc4 14:09 BP 175 / 79 (auto/); srm 14:10 Pulse 98 MON; srm 14:39 BP 151 / 77 (auto/); srm 14:39 Pulse 102 MON; Resp 18; Pulse Ox 95% ; srm 15:09 BP 150 / 75 (auto/); srm 15:11 Pulse 104 MON; Pulse Ox 93% ; srm 15:39 BP 140 / 85 (auto/); srm 15:40 Pulse 94 MON; Resp 18; Pulse Ox 94% ; srm 17:08 BP 146 / 83; Pulse 94; Resp 18; Temp 98.3(O); Pulse Ox 96% on R/A; lr2 17:42 BP 112 / 74; Pulse 88; Resp 18; Pulse Ox 95% on R/A; srm 12:59 Body Mass Index 30.04 (79.38 kg, 162.56 cm) jc4 ED Course: 12:12 Patient visited by Paulina Calderon PCA. rs6 12:12 Gustavo Martin is Private Physician. rs6 12:12 Yessenia Ivory,RN is Primary Nurse. rs6 12:12 Charity Amos, ARABELLA is Primary Nurse. rs6 12:12 Patient moved to Waiting rs6 12:12 Patient moved to I8 / 16 rs6 12:13 Patient moved to I1 / M1 rs6 12:18 Triage Initiated dsf 12:25 Patient visited by Nereida Vernon,ARABELLA. dsf 12:28 Edgardo Heath PA-C is PHCP. ar2 12:28 Gordo Denney MD is Attending Physician. ar2 12:28 Patient visited by Edgardo Heath PA-C. ar2 13:01 Inserted saline lock: 20 gauge in right antecubital area. ja5 13:04 MAGNESIUM LEVEL Sent. jc4 13:04 CIP Sent. jc4 13:04 Troponin Sent. jc4 13:08 Patient visited by Yessenia Ivory RN. ja5 13:08 The patient / caregiver is instructed regarding the plan of care and ED course. jc4 13:50 Patient moved to 7 jam1 13:50 CT Chest Angio R/O PE Returned. EDMS 13:55 [facility] Payment Agreement was scanned into [employer] and attached to record. mm15 14:53 MelissarosmeryNeli is Hospitalizing Provider. ar2 15:21 Patient visited by Isabel Franklin RN. srm 17:10 report faxed to [facility] through computer. srm 17:11 Patient visited by Isabel Franklin, ARABELLA. srm 17:23 Abdomen,Flat Plate KUB Returned. EDMS 17:42 No procedures done that require assistance. srm 10/19 13:58 T-Sheet-- Draft Copy was scanned into [employer] and attached to record. gb 13:58 PCR was scanned into [employer] and attached to record. gb 13:59 ECG/EKG was scanned into [employer] and attached to record. gb 13:59 Trend VS was scanned into [employer] and attached to record. gb Administered Medications: 10/18 13:03 Drug: NS 0.9% 500 ml [sodium chloride 0.9 % intravenous solution] Route: IV; Rate: ja5 bolus; Site: right antecubital; 13:04 Drug: morphine 2 mg [morphine 2 mg/mL intravenous cartridge (1 mL)] Route: IVP; Site: jc4 right antecubital; 15:32 Drug: NS 0.9% 1000 ml [sodium chloride 0.9 % intravenous solution] Route: IV; Rate: 100 srm mL/hr; Site: right antecubital; Attachments: 13:59 Trend VS Point of Care Testing: Blood Glucose: 10/18 15:28 Blood Glucose: 229 mg/dL; srm Ranges: Intake: 17:08 IV: 500.00ml (NS); Total: 500.00ml. srm Output: 14:39 Urine: 325.00ml (Voided); Total: 325.00ml. srm Order Results: Lab Order: Troponin; SPEC'M 10/18/16 13:00 Test: TROPONIN I; Value: < 0.02; Range: < 0.10; Units: NG/ML; Status: F Test Note: ; Troponin I Reference Interval for [employer]oster[employer] LOCI: 99th Percentile= 0.00-0.045 ng/ml Risk Stratification: <= 0.10 ng/ml Decreased Risk for Adverse Clinical Events. 0.10-1.50 ng/ml Increased Risk for Adverse Clinical Events. Evaluation of additional criterion and/or repeat testing in 2-6 hours is suggested to rule out myocardial damage. >= 1.50 ng/ml Indicative of Myocardial Injury. Lab Order: CIP; SPEC'M 10/18/16 13:00 Test: CPK CREATINE PHOSPHOKINASE; Value: 856; Range: 39-308; Abnormal: High; Units: U/L; Status: F Test: CK-MB VALUE MASS; Value: 14.1; Range: 0.0-3.6; Abnormal: Above high normal; Units: NG/ML; Status: F Test: MB/CK RELATIVE INDEX; Value: 1.64; Range: < OR =4; Status: F Test Note: ; DIAGNOSIS CRITERIA MMB ng/ml Relative Index (RI) NON-AMI < or = 5 N/A VEGA ZONE > 5 < or = 4 AMI > 5 > 4 Lab Order: MAGNESIUM LEVEL; SPEC'M 10/18/16 13:00 Test: MAGNESIUM LEVEL; Value: 1.3; Range: 1.8-2.4; Abnormal: Below low normal; Units: MG/DL; Status: F Lab Order: Fingerstick Blood Sugar; [facility]'10/18/16 15:25 Test: BEDSIDE GLUCOSE; Value: 229; Range: 83-110; Abnormal: Above high normal; Units: MG/DL; Status: F Lab Order: HEMOGLOBIN A1C; SPEC'10/18/16 13:00 Test: HEMOGLOBIN A1c; Value: 9.5; Range: 4.5-6.2; Abnormal: Above high normal; Units: %; Status: F Test: ESTIMATED AVERAGE GLUCOSE; Value: 226; Range: 60-110; Abnormal: Above high normal; Units: MG/DL; Status: F Lab Order: THYROID STIMULATING HORMONE; [facility] 13:00 Test: THYROID STIMULATING HORMONE; Value: 1.780; Range: 0.358-3.740; Units: uIU/ML; Status: F Radiology Order: CT Chest Angio R/O PE Test: CT Chest Angio R/O PE REASON FOR EXAMINATION: sob, left chest pain; Clinical: Acute chest pain and shortness of breath.; ; Technique: Axial contrast enhanced images from the thoracic inlet to the upper; abdomen using 100 ml Isovue 370 intravenous contrast material with coronal and; sagittal re-formations.; ; Findings: Satisfactory enhancement of the pulmonary vasculature is achieved and; no filling defects are identified to suggest pulmonary embolus. Thoracic aorta; is normal caliber without aneurysm or dissection. Mild cardiomegaly suggested.; Pericardium is normal. Bilateral lung hebert are clear without acute pulmonary; parenchymal consolidation or atelectasis. No nodule or mass lesion. No pleural; effusion/reaction. No pneumothorax. No adenopathy. Visualized liver contour; suggest cirrhosis.; ; Impression:; No evidence for pulmonary embolus.; Cardiomegaly.; No acute pleuroparenchymal or mediastinal process.; ; ; Signed by; Zander Almanza MD 10/18/2016 01:26 P; Radiology Order: Abdomen,Flat Plate KUB Test: Abdomen,Flat Plate KUB REASON FOR EXAMINATION: abd distension; KUB ABDOMEN AND PELVIS:; ; KUB films of the abdomen and pelvis were performed. There is no compelling; evidence for bowel obstruction. Air is seen throughout the GI tract in a; nonspecific pattern. There is mild diffuse distension which may represent a mild; generalized ileus. There is contrast in the bladder from today's CT of the chest; with contrast. There are degenerative changes of the spine.; ; IMPRESSION:; Nonspecific bowel gas pattern. Mild diffuse distension of bowel may represent a; mild generalized ileus. No compelling evidence of bowel obstruction.; ; Unreviewed; Outcome: 13:47 Admission hand-off: Other: report given to Isabel BELL . jarod 14:55 Decision to Hospitalize by Provider. ar2 17:42 Discharge Assessment: Patient awake, alert and oriented x 3. No cognitive and/or srm functional deficits noted. Patient verbalized understanding of disposition instructions. patient administered narcotics - no. The following High Risk Discharge criteria are identified: None. Admitted to Med/Surg accompanied by tech, via stretcher, with chart. Condition: stable. CT Study completed. Property :Personal belongings accompany Pt. 17:43 Patient left the ED. srm Signatures: Dispatcher [employer] EDMS Isabel Franklin, RN RN srm Janet Arellano, SILK SCREEN PRINTER MACHINE SILK SCREEN PRINTER MACHINE jam1 Kate Reza, Reg Reg gb Edgardo Heath, PA-C PA-C ar2 Charity Amos RN RN [id number] Nereida VernonRN RN f Jona Moeller mm15 Paulina Calderon, SILK SCREEN PRINTER MACHINE SILK SCREEN PRINTER MACHINE rs6 Yessenia Ivory,ARABELLA RN Becky Andrew lr2 Corrections: (The following items were deleted from the chart) 15:21 14:10 General: Appears in no apparent distress, Behavior is appropriate for age, srm cooperative, pt sttod at bedside to urinate. needed assistance due to legs feeling weak. pt c/o " black spots" on right foot. examined feet and no black spots noted to either. 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 srm Chart Complete MTDD
[2016-10-20] MEDS: OSELTAMIVIR 6 MG/ML 60ML SUSP PO SCH (21:54)
[2016-10-20] MEDS: GABAPENTIN 100 MG CAP PO SCH (21:55)
[2016-10-20] MEDS: LEVEMIR (INSULIN DETEMIR) 1 UNITS/0.01ML SC SCH (21:55)
[2016-10-20] MEDS: PRAVASTATIN 20 MG TAB PO SCH (21:56)
[2016-10-20 22:00] VITALS: BP 110/59
[2016-10-21] MEDS: HEPARIN SOD (PORCINE) 5000 UNITS/ML VIAL SC SCH ×3 (05:38→21:05)
[2016-10-21] MEDS: LEVOTHYROXINE 0.075 MG TAB (75 MCG) PO SCH (05:38)
[2016-10-21 06:00] VITALS: BP 142/67
[2016-10-21 06:42] LABS: MEAN CORPUSCULAR HEMOGLOBIN 31.5 pg (27.0-33.0); MEAN CORPUSCULAR VOLUME 95.5 fl (80.0-96.0); RED CELL DISTRIBUTION WIDTH 13.5 % (11.5-14.5); WHITE BLOOD COUNT 4.2 K/mm3 (4.0-10.0)
[2016-10-21 06:59] LABS: CREATININE FOR GFR 1.33 MG/DL (0.70-1.30); GLOMERULAR FILTRATION RATE 54.1 (>35); MAGNESIUM LEVEL 1.9 MG/DL (1.8-2.4); POTASSIUM SERUM 4.2 MEQ/L (3.5-5.1)
[2016-10-21] MEDS: HumaLOG INSULIN (NovoLOG) PER UNIT SC SCH ×4 (08:50→21:00)
[2016-10-21] MEDS: SENOKOT S TAB PO SCH ×2 (08:50→21:06)
[2016-10-21] MEDS: SERTRALINE HCL 25 MG TABLET PO SCH (08:51)
[2016-10-21] MEDS: ALLOPURINOL 100 MG TAB PO SCH (08:51)
[2016-10-21] MEDS: OMEPRAZOLE 20 MG CAP PO SCH ×2 (08:51→21:06)
[2016-10-21] MEDS: MAGNESIUM CHLORIDE 64 MG TABCR (SLO MAG) PO SCH (08:51)
[2016-10-21] MEDS: OSELTAMIVIR 6 MG/ML 60ML SUSP PO SCH ×2 (08:52→21:05)
[2016-10-21] MEDS: LISINOPRIL 40 MG TAB PO SCH (08:52)
--- NOTE | 2016-10-21 09:08 | ECGEPIP ---
Stationary ECG Study [facility] Test Date: 2016-10-20 Pat Name: WILFRIDO ESTRADA Department: Room: [place] [address] Gender: M Organisation And Methods Analyst: ARJUN : 1930 Requested By: CHRIS Adler Order Number: [id number] Reading MD: Delfino Mclean Measurements Intervals [place] Rate: 74 P: 66 TX: 193 QRS: 35 QRSD: 94 T: 81 QT: 353 QTc: 392 Interpretive Statements Normal sinus rhythm Subtle nonspecific ST/T-wave abnormalities No change from 10/18/16. Electronically Signed On 10-21-2016 9:07:57 EST by Delfino Mclean
[2016-10-21 14:00] VITALS: BP 133/61
--- NOTE | 2016-10-21 17:37 | IPN ---
DATE: 10/21/2016 SUBJECTIVE: Mr. Mena is feeling a little more energetic today. He has been up and moving around. He does not feel quite as weak. No cough, chest pain, not particularly short of breath. OBJECTIVE: VITAL SIGNS: Temperature 98, pulse 92, respiratory rate 17, blood pressure 142/67, 90% on room air. Intake and output notable for positive fluid balance of 1780. Three bowel movements yesterday. GENERAL: He is awake and appropriately interactive, pleasantly conversant. LUNGS: Breathing is symmetrical and rested. HEART: Regular rate and rhythm. ABDOMEN: Soft, doughy, and nontender. LABORATORY DATA: White count 4.2, hemoglobin 11.6, platelets of 147. BUN 18, creatinine 1.33, magnesium 1.9. ASSESSMENT: An 86-year-old who presented with sinus tachycardia who has been found to have influenza A. PLAN: 1. Influenza A. This is likely caused the patient's underlying sinus tachycardia and general malaise. He has been started on Tamiflu. He is feeling better and he has continued with current management. He has been seen by physical therapy and does not need skilled PT at this time. 2. The patient has insulin-dependent diabetes. 3. The patient had cough and history of chronic obstructive pulmonary disease (COPD). He appears to be reasonably well compensated at this point. 4. The patient has a history of cirrhosis. 5. The patient has hypothyroidism. 6. The patient has a hiatal hernia. 7. The patient has hypertension by history. 8. The patient has gout. 9. The patient will likely be discharged home with services.
[2016-10-21] MEDS: PRAVASTATIN 20 MG TAB PO SCH (21:06)
[2016-10-21] MEDS: GABAPENTIN 100 MG CAP PO SCH (21:06)
[2016-10-21] MEDS: LEVEMIR (INSULIN DETEMIR) 1 UNITS/0.01ML SC SCH (21:07)
[2016-10-21 22:00] VITALS: BP 152/74
[2016-10-22] MEDS: LEVOTHYROXINE 0.075 MG TAB (75 MCG) PO SCH (05:30)
[2016-10-22] MEDS: HEPARIN SOD (PORCINE) 5000 UNITS/ML VIAL SC SCH (05:30)
[2016-10-22 06:00] VITALS: BP 131/74
[2016-10-22 06:17] LABS: MEAN CORPUSCULAR HEMOGLOBIN 32.2 pg (27.0-33.0); MEAN CORPUSCULAR HGB CONC 34.4 g/dl (32.0-36.5); MEAN CORPUSCULAR VOLUME 93.8 fl (80.0-96.0); RED CELL DISTRIBUTION WIDTH 13.4 % (11.5-14.5); WHITE BLOOD COUNT 3.8 K/mm3 (4.0-10.0)
[2016-10-22 06:31] LABS: CALCIUM LEVEL 8.9 MG/DL (8.8-10.2); CREATININE FOR GFR 1.26 MG/DL (0.70-1.30); GLOMERULAR FILTRATION RATE 57.6 (>35); MAGNESIUM LEVEL 1.7 MG/DL (1.8-2.4); POTASSIUM SERUM 4.2 MEQ/L (3.5-5.1)
[2016-10-22] MEDS: OMEPRAZOLE 20 MG CAP PO SCH (09:31)
[2016-10-22] MEDS: MAGNESIUM CHLORIDE 64 MG TABCR (SLO MAG) PO SCH (09:31)
[2016-10-22] MEDS: HumaLOG INSULIN (NovoLOG) PER UNIT SC SCH ×2 (09:31→12:42)
[2016-10-22] MEDS: ALLOPURINOL 100 MG TAB PO SCH (09:32)
[2016-10-22] MEDS: SERTRALINE HCL 25 MG TABLET PO SCH (09:32)
[2016-10-22] MEDS: OSELTAMIVIR 6 MG/ML 60ML SUSP PO SCH (09:32)
[2016-10-22] MEDS: SENOKOT S TAB PO SCH (09:32)
[2016-10-22] MEDS: LISINOPRIL 40 MG TAB PO SCH (09:32)
[2016-10-22] MEDS ORDERED: MAG SULF 1GM/100ML (MAG RUN) 1 GM in APPROPRIATE DILUENT 1 EA IV ONE (10:00)
[2016-10-22] MEDS ORDERED: TAMI30CA PO (10:10)
--- NOTE | 2016-10-22 16:20 | IPN ---
DATE: 10/22/2016 SUBJECTIVE: Patient is feeling well today. He is more energetic. He has been out of bed working with physical therapy yesterday and did quite well. He is tolerating diet. OBJECTIVE: VITAL SIGNS: Temperature 97, pulse 73, respiratory rate 16, blood pressure 131/74, 94% on room air. Intake and output notable for positive fluid balance of 595. Six bowel movements yesterday. GENERAL: He is awake and appropriately interactive, pleasantly conversant. No acute distress. Mucous membranes are moist. NECK: Supple. HEART: Distant sounding. Normal S1, S2. ABDOMEN: Soft, doughy, and nontender. LABORATORY DATA: White count 2.8, hemoglobin 12.1, platelets of 142. BUN 24, creatinine 1.26. ASSESSMENT: This is an 86-year-old who presented with sinus tachycardia who has been found to have influenza A. PLAN: 1. Patient has Influenza A, which was underlying his sinus tachycardia and general malaise. He is improving and seems to be appropriate for discharge at this time. 2. The patient has insulin-dependent diabetes. 3. History of chronic obstructive pulmonary disease (COPD). 4. The patient has a history of cirrhosis. 5. The patient has hypothyroidism. 6. The patient has a hiatal hernia. 7. The patient has hypertension by history. The plan will be to discharge him home with services. Discharge instructions will include the following: Followup with Dr. Martin's office 10/29/2016 at 10:45 a.m. Activity as tolerated. Diet as tolerated. Tamiflu 30 mg by mouth twice daily. Allopurinol 100 mg by mouth daily. Neurontin 200 mg by mouth daily at bedtime. Levemir 55 units every evening. Synthroid 75 mcg by mouth daily. Lisinopril 40 mg by mouth daily. Magnesium chloride 64 mg by mouth at noon. Omeprazole 20 mg by mouth twice daily. Pravastatin 40 mg by mouth daily at bedtime. Sertraline 25 mg by mouth daily. Januvia 50 mg by mouth daily. No nursing visits are arranged.
== END 2016-10-22 13:00 | disposition home health service (06) | DRG 866 ==
LOC: M ED 12:11 → M ED INP 15:53 → M MSPAV 17:46 → OBSVTOIN 10-21 16:40
PROVIDERS: ADMIT Internal Medicine; ATTEND Internal Medicine
DX: J11.89 Influenza due to unidentified influenza virus with other manifestations (principal); R00.1 Bradycardia, unspecified; E11.9 Type 2 diabetes mellitus without complications; M10.9 Gout, unspecified; E78.00 Pure hypercholesterolemia, unspecified; I10 Essential (primary) hypertension; Z79.899 Other long term (current) drug therapy; Z79.4 Long term (current) use of insulin; J44.9 Chronic obstructive pulmonary disease, unspecified; K74.69 Other cirrhosis of liver; Z87.891 Personal history of nicotine dependence; E03.9 Hypothyroidism, unspecified; F32.9 Major depressive disorder, single episode, unspecified; K21.9 Gastro-esophageal reflux disease without esophagitis; K44.9 Diaphragmatic hernia without obstruction or gangrene

== ENCOUNTER 2017-02-09 21:03 | Observation (INO) | payer OTHER ==
[~2017-02-09] VITALS: Ht 162.6 cm; Wt 86.5 kg
[~2017-02-09 21:03] MED LIST changes: +ALLO100T PO; +GABA-279 PO; +INSUDET SC; +LEVO75TA34 PO; +MAGN64TASA PO; +PRAV40TA2 PO; +SERT25TA PO; +SITA50TAB PO; +TAMI30CA PO
[2017-02-09] MEDS ORDERED: MAG400TA PO (21:25)
[2017-02-09] MEDS ORDERED: MELO7.5T6 PO (21:25)
[2017-02-09] MEDS ORDERED: fentaNYL 100 MCG/2 ML INJECTION (J3010) IV ONE (22:00)
[2017-02-09 22:34] LABS: BASO % 0.2 % (0.0-1.0); EOS # 0.2 K/mm3 (0.0-0.50); EOS % 6.4 % (0.0-3.0); LARGE UNSTAINED CELL # 0.1 K/mm3 (0.0-0.4); LARGE UNSTAINED CELL % 1.5 % (0.0-4.0); LYMPH # 1.2 K/mm3 (1.5-4.5); LYMPH % 28.8 % (24.0-44.0); MEAN CORPUSCULAR HEMOGLOBIN 31.1 pg (27.0-33.0); MEAN CORPUSCULAR HGB CONC 33.1 g/dl (32.0-36.5); MEAN CORPUSCULAR VOLUME 93.8 fl (80.0-96.0); MONO # 0.3 K/mm3 (0.0-0.8); MONO % 7.6 % (0.0-5.0); NEUTROPHILS # 2.2 K/mm3 (1.8-7.7); NEUTROPHILS % 55.5 % (36.0-66.0); PLATELET COUNT, AUTOMATED 153 k/mm3 (150-450); RED CELL DISTRIBUTION WIDTH 13.1 % (11.5-14.5)
[2017-02-09 22:47] LABS: CALCIUM LEVEL 8.4 MG/DL (8.8-10.2); CREATININE FOR GFR 1.3 MG/DL (0.70-1.30); GLOMERULAR FILTRATION RATE 55.6 (>35); POTASSIUM SERUM 4.5 MEQ/L (3.5-5.1)
--- NOTE | 2017-02-09 23:10 | REPUSA ---
Clinical history: Pain, swelling. Findings: The right common femoral, superficial femoral, popliteal, and other deep venous structures compress normally and demonstrate normal color Doppler flow. Normal venous waveforms with augmentatio n are seen. Impression: No evidence of deep vein thrombosis in the right femoral popliteal venous system.
--- NOTE | 2017-02-10 01:05 | REP ---
Clinical: Pain. Technique: AP and Y view of the left shoulder. Comparison: Multiple examinations through 11/08/2010. Findings: Resorption/resection of the distal clavicle is appreciated. Degenerative changes to the glenohumeral joint include subtle subchondral heterogeneity at the humeral tuberosity with subchondral cystic changes as well as subtle increase sclerosis and blunting to the glenoid rim. No acute fracture. No obvious periarticular calcifications. Impression: 1. Resection versus Resorption of the distal clavicle remains stable. 2. Mild degenerative changes to the glenohumeral joint. Signed by Zander Almanza MD 02/10/2017 12:56 A
--- NOTE | 2017-02-10 02:00 | REP ---
Clinical: Pain. Technique: Single internal rotation view of the left shoulder. Comparison: 05/17/2016. Findings: Resorption/resection of the distal clavicle is appreciated. The acromion process appears normal. The subacromial space is normal. Moderate degenerative changes involving the humeral head include cortical irregularity/spurring as well as subchondral heterogeneity and subtle cystic changes. Subluxation cannot be excluded. Impression: Moderate degenerative changes. Signed by Zander Almanza MD 02/10/2017 01:51 A
--- NOTE | 2017-02-10 02:03 | REP ---
Clinical: Right hip pain. Technique: Frontal view of the pelvis with neutral and frog lateral views of the bilateral hips. Findings: Symmetric age-related degenerative changes are appreciated. No acute fracture dislocation. Surrounding soft tissues are unremarkable. Impression: Symmetric mild to moderate degenerative changes. Signed by Zander Almanza MD 02/10/2017 01:55 A
[2017-02-10] MEDS ORDERED: ACETAMINOPHEN TAB 650MG DOSE (2X325MG) PO PRN (04:30)
[2017-02-10 05:05] VITALS: BP 191/87
[2017-02-10] MEDS ORDERED: LEVOTHYROXINE 0.075 MG TAB (75 MCG) PO SCH (06:00)
[2017-02-10] MEDS: LEVEMIR (INSULIN DETEMIR) 1 UNITS/0.01ML SC SCH ×2 (06:23→20:19)
--- NOTE | 2017-02-10 06:34 | REP ---
Clinical: Knee pain. Technique: AP, lateral, bilateral oblique and sunrise views. Findings: Moderate arthritic degenerative changes include medial and patellofemoral joint space narrowing with associated areas of subchondral sclerosis as well as chondrocalcinosis. No acute fracture dislocation. No effusion. No significant prepatellar swelling. Impression: Moderate arthritic degenerative changes. Signed by Zander Almanza MD 02/10/2017 06:26 A
--- NOTE | 2017-02-10 06:45 | HPEPDOC ---
General Date of Admission Feb 10, 2017 at 04:22 Primary Care Physician: Gustavo Martin MD Attending Physician: HALI GONZALES DO Chief Complaint The patient is a 86-year-old male admitted with a reason for visit of Right Leg Pain/Sinus Tachycardia. Source: Patient Exam Limitations: No limitations Timing/Duration: 24 hours Severity: Mild Associated Symptoms: Denies Symptoms History of Present Illness A 56-year-old male with history of 4. Left shoulder surgery, cholecystectomy, hypertension, diabetes mellitus, presented with right leg pain. He denies any recent travel. There was no trauma, swelling, redness. Home Medications Scheduled Allopurinol (Allopurinol) 100 Mg Tab, 100 MG PO DAILY, (Reported) Insulin Detemir (Levemir) 1 Units/0.01 Ml Susp, 55 UNITS SC QPM, (Reported) Levothyroxine Sodium (Levoxyl) 75 Mcg Tab, 75 MCG PO DAILY, (Reported) Lisinopril (Lisinopril) 40 Mg Tab, 40 MG PO DAILY, (Reported) Magnesium Oxide (Magnesium Oxide) 400 Mg Tab, 400 MG PO DAILY, (Reported) TAKES AT NOON Meloxicam (Meloxicam) 7.5 Mg Tab, 7.5 MG PO DAILY, (Reported) Omeprazole (Omeprazole) 20 Mg Cap, 20 MG PO BID, (Reported) Pravastatin Sod (Pravastatin Sodium) 40 Mg Tab, 40 MG PO QHS, (Reported) Sertraline Hcl (Sertraline HCl) 25 Mg Tab, 25 MG PO DAILY, (Reported) Sitagliptin (Januvia) 50 Mg Tab, 50 MG PO DAILY, (Reported) Allergies Coded Allergies: Aspirin (Verified Allergy, Unknown, 03/31/13) Past Medical History Medical History Hypertension, diverticular disease Surgical History Cholecystectomy, left shoulder surgery Family History Significant Family History: No pertinent family hx Social History * Smoker: Denies Alcohol: Denies Drugs: denies Recent Travel/Sick Contacts: Denies: Recent travel, Recent sick contacts Psychosocial History: No pertinent psych hx Review of Symptoms Constitutional: Denies: Chills, Fever, Night Sweats Eyes: Denies: Pain, Vision change ENT: Denies: Head Aches, Ear Pain, Dysphagia Skin: Denies: Rash, Lesions, Breakdown Pulmonary: Denies: Dyspnea, Cough Cardiovascular: Denies: Chest Pain, Palpitations, Orthopnea, Paroxysmal Noc. Dyspnea, Lt Headedness Gastrointestinal: Denies: Nausea, Vomiting, Abdominal Pain, Diarrhea Genitourinary: Denies: Dysuria, Frequency, Incontinence, Retention Hematologic: Denies: Bruising, Bleeding Excessively Musculoskeletal: Reports: Leg Pain, Denies: Neck Pain, Back Pain, Joint Pain, Muscle Pain, Spasms Neurological: Denies: Weakness, Numbness, Change in speech, Confusion Psych: Reports: Mood Normal, Denies: Depression, Memory Issues Physical Examination General Exam: Positive: Alert, No Acute Distress Eye Exam: Positive: PERRLA, Conjunctiva & lids normal, EOMI, Negative: Sclera icteric ENT Exam: Positive: Atraumatic, Mucous membr. moist/pink, Pharynx Normal Neck Exam: Positive: Supple, Negative: JVD, thyromegaly Chest Exam: Positive: Clear to auscultation, Normal air movement Heart Exam: Positive: Rate Normal, Regular Rhythm, Normal S1, Normal S2, Negative: Murmurs, Rubs Telemetry: Positive: No significant arrhythmia Abdomen Exam: Positive: Normal bowel sounds, Soft, Negative: Tenderness, Hepatospenomegaly Extremity Exam: Positive: Normal pulses, Negative: Clubbing, Cyanosis, Edema Skin Exam: Positive: Nl turgor and temperature, Negative: Breakdown, Lesion Neuro Exam: Positive: Normal Gait, Normal Speech, Cranial Nerves 3-12 NL, Reflexes 2+ Psych Exam: Positive: Mental status NL, Mood NL, Oriented x 3 Vital Signs Vital Signs Date Time Temp Pulse Resp B/P (MAP) Pulse Ox O2 Delivery O2 Flow Rate FiO2 02/10/17 05:45 18 02/10/17 05:05 98.0 69 191/87 (121) 95 Room Air Laboratory Data Labs 24H Laboratory Tests 2 02/09/17 22:15: White Blood Count 4.0, Red Blood Count 3.46L, Hemoglobin 10.8L, Hematocrit 32.5L , Mean Corpuscular Volume 93.8, Mean Corpuscular Hemoglobin 31.1, Mean Corpuscular Hemoglobin Concent 33.1, Red Cell Distribution Width 13.1, Platelet Count 153, Neutrophils (%) (Auto) 55.5, Lymphocytes (%) (Auto) 28.8, Monocytes ( %) (Auto) 7.6H, Eosinophils (%) (Auto) 6.4H, Basophils (%) (Auto) 0.2, Neutrophils # (Auto) 2.2, Lymphocytes # (Auto) 1.2L, Monocytes # (Auto) 0.3, Eosinophils # (Auto) 0.2, Basophils # (Auto) 0.0, Large Unclassified Cells % 1.5 , Large Unclassified Cells # 0.1, Anion Gap 3L, Glomerular Filtration Rate 55.6 , Blood Urea Nitrogen 27H, Creatinine 1.30, Sodium Level 137, Potassium Level 4.5, Chloride Level 106, Carbon Dioxide Level 28, Calcium Level 8.4L, Total Creatine Kinase 246 02/10/17 05:59: Bedside Glucose (Misc Panel) 184H CBC/BMP Laboratory Tests 02/09/17 22:15 Red Blood Count 3.46 L, Mean Corpuscular Volume 93.8, Mean Corpuscular Hemoglobin 31.1, Mean Corpuscular Hemoglobin Concent 33.1, Red Cell Distribution Width 13.1, Neutrophils (%) (Auto) 55.5, Lymphocytes (%) (Auto) 28.8, Monocytes (%) (Auto) 7.6 H, Eosinophils (%) (Auto) 6.4 H, Basophils (%) ( Auto) 0.2, Neutrophils # (Auto) 2.2, Lymphocytes # (Auto) 1.2 L, Monocytes # ( Auto) 0.3, Eosinophils # (Auto) 0.2, Basophils # (Auto) 0.0, Calcium Level 8.4 L Assessment/Plan 26-year-old male, history of hypertension, diabetes, cholecystectomy, and left shoulder surgery, presented with right leg pain. Evidently, it is due to muscle spasm Problems (1) Right leg pain Status: Acute Problem Text: Pain control, PT, OT, DVT, cardiology, ruled out. There was no evidence of any fracture and hip pain, leg, there is get the x-ray of the knee to rule out any fracture or pathology Plan / VTE VTE Prophylaxis Ordered?: Yes Plan Diet: Continue Current Activity: Continue Current Therapy: PT, OT Anticipated Discharge: Home ELIO BRANTLEY MD Feb 10, 2017 06:45
[2017-02-10] MEDS: SITagliptin 50 MG TAB (JANUVIA) PO SCH (08:45)
[2017-02-10] MEDS: OMEPRAZOLE 20 MG CAP PO SCH ×2 (08:46→20:19)
[2017-02-10] MEDS: ALLOPURINOL 100 MG TAB PO SCH (08:46)
[2017-02-10] MEDS: SERTRALINE HCL 25 MG TABLET PO SCH (08:46)
[2017-02-10] MEDS: LISINOPRIL 40 MG TAB PO SCH (08:46)
[2017-02-10 09:00] VITALS: BP 144/68
[2017-02-10] MEDS ORDERED: MAGNESIUM OXIDE 400 MG TAB (MAG-OX) PO SCH (12:00)
[2017-02-10] MEDS: BACLOFEN 5MG PER 1/2 TABLET PO SCH ×3 (13:29→20:19)
--- NOTE | 2017-02-10 14:52 | REP ---
Right ankle series: Four views. History: Unstable right ankle. Findings: There is fairly extensive clothing artifact. Plantar calcaneal spurring is noted. Ankle mortise is intact. No other bony abnormality. Signed by Sreedhar Conley MD 02/10/2017 03:18 P
[2017-02-10] MEDS ORDERED: SENOKOT S TAB PO PRN (16:30)
--- NOTE | 2017-02-10 17:35 | CR ---
DATE OF CONSULTATION: 02/10/2017 REASON FOR CONSULTATION: Right lower extremity pain. HISTORY OF PRESENT ILLNESS: He is an 86-year-old male who has been under the care of a machine driller in [place] for what sounds like, by history, although he is a relatively poor historian and difficult to get a good story, but it seems like he is describing soreness in both of his arches of his feet and medial sided aspects of his ankles, possibly posterior tibial tendonitis, for which the machine driller has been wrapping his feet with [place] wraps and wanted to leave them on for a week and then come back and see him, but he has been also describing some crampy pain in his right medial aspect of his thigh and causing his knee to go into spasm and difficult to straighten it out intermittently. He was unable to walk well because of this and he was admitted to the hospital because he was unable to care for himself at home. He lives alone, his is unfortunately in a penitentiary over the past 3 years so he has been felt safe to be discharged home. I was asked to see him and ask him about some type of a brace for his ankle by the hospitalist service. PAST HISTORY: Gout, insulin-dependent diabetes, hypothyroidism, hypertension, and gastric reflux and hypercholesterolemia. He takes allopurinol, Levemir, levothyroxine, lisinopril, magnesium oxide, meloxicam, omeprazole, pravastatin, sertraline, sitagliptin (or Januvia). ALLERGIES: ASPIRIN. PREVIOUS SURGERIES: He has had left shoulder surgery and a cholecystectomy. FAMILY HISTORY: Otherwise unremarkable. SOCIAL HISTORY: Does not smoke or drink alcohol excessively. He is retired. He lives in [place] now at a [employer] center. REVIEW OF SYSTEMS: He has troubles with back pain in the past and he has got known lumbar spine degenerative disc disease, but otherwise no other significant troubles. Please see the history and physical on admission from Dr. Guthrie which I reviewed. He has had no fevers since he has been here in the hospital. So when I examined him and discussed with him today, he is an elderly, pleasant male. He clearly is having intermittent cramps in his medial adductors of the right thigh and the knee, but he can ambulate well, there is no limp. He does use a cane and/or a walker at times for support, but he can walk without an antalgic component to his gait. When I internally and externally rotated his right hip, there was no tenderness and no irritability referable to the hip or the groin. We took off the wraps on his feet and he actually felt a lot better. There is some minor swelling of his ankles which is chronic for him, the left is a bit greater than the right, but no significant amount of pitting edema noted. His feet and ankles are not hot, they are not red, there is no signs of any infection or synovitis. He has normal motor strength of his ankles and his toes in plantar flexion and dorsiflexion, but has somewhat decreased sensation more or less in a stocking distribution bilaterally. I could palpate posterior tibial pulses and dorsalis pedis on the left but then on the right it is difficult to get a dorsalis pedis pulse, but I was able to do it with a Doppler, but he had a strong posterior tibial pulse. His feet are relatively warm, no obvious ischemia is noted. He has got some mild flexion retractions of his knee but no swelling, but he can bend and straighten the knee fairly well when he is not having a crampy sensation in his medial adductor. His back has some mild soreness, but again his gait is normal. His vital signs, he has been afebrile since the admission. His laboratory studies show a white blood count of 4, hematocrit of 32.5, platelets of 153. Chemistries were essentially unremarkable, glucose is somewhat elevated at 301 however. Radiographs were done and I reviewed them, of the hip and pelvis, showed some minor degenerative changes, quite a bit of lumbar spondylosis is noted on the pelvis x-ray, but no acute fractures or lytic lesions or blastic lesions are noted, no obvious calcifications in his blood vessels are seen. His ankle x-ray was normal. Right knee x-ray showed some degenerative arthritis and some mild chondrocalcinosis. My impression overall is he has relatively vague complaints but he seems to have some adductor muscle cramps in his right thigh as well as some bilateral posterior tibial tendonitis. I do not see any other pathology that is worrisome that requires any surgical intervention certainly, but I would just treat this symptomatically and expectantly. I do get strong posterior tibial pulses but not a good dorsalis pedis on the right, but his feet appear to be well perfused, I am not certain why he is having the cramps and whether or not this is related to some vascular phenomenon versus a spinal stenosis and radiculopathic problems. He does have the diabetes and possibly has some peripheral neuropathic problems contributing to his symptom complex. He had an ultrasound of his right leg which did not show a deep venous thrombosis (DVT). So, I would treat this expectantly. He feels that he can go home, he wants to go home, so we will leave that up to he and the hospitalist, once they feel that he is safe. 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 So, I will see him on an as needed basis as an outpatient if there is other orthopedic issues that may arise.
[2017-02-10] MEDS: DOCUSATE SODIUM 100 MG CAP PO SCH (20:20)
[2017-02-10] MEDS ORDERED: PRAVASTATIN 20 MG TAB PO SCH (21:00)
[2017-02-10 22:00] VITALS: BP 144/64
[2017-02-11 06:00] VITALS: BP 157/72
[2017-02-11] MEDS ORDERED: LEVOTHYROXINE 75MCG TABLET (0.075MG) PO SCH (06:00)
[2017-02-11 08:02] LABS: MEAN CORPUSCULAR HEMOGLOBIN 31.3 pg (27.0-33.0); MEAN CORPUSCULAR HGB CONC 33.1 g/dl (32.0-36.5); MEAN CORPUSCULAR VOLUME 94.7 fl (80.0-96.0); RED CELL DISTRIBUTION WIDTH 13.2 % (11.5-14.5); WHITE BLOOD COUNT 4.9 K/mm3 (4.0-10.0)
[2017-02-11 08:18] LABS: CALCIUM LEVEL 9.1 MG/DL (8.8-10.2); CREATININE FOR GFR 1.3 MG/DL (0.70-1.30); GLOMERULAR FILTRATION RATE 55.6 (>35); POTASSIUM SERUM 4.6 MEQ/L (3.5-5.1)
[2017-02-11] MEDS: SITagliptin 50 MG TAB (JANUVIA) PO SCH (09:00)
[2017-02-11] MEDS: ALLOPURINOL 100 MG TAB PO SCH (09:00)
[2017-02-11] MEDS: OMEPRAZOLE 20 MG CAP PO SCH (09:00)
[2017-02-11] MEDS: DOCUSATE SODIUM 100 MG CAP PO SCH (09:00)
[2017-02-11] MEDS: SERTRALINE HCL 25 MG TABLET PO SCH (09:00)
[2017-02-11] MEDS: BACLOFEN 5MG PER 1/2 TABLET PO SCH (09:00)
[2017-02-11] MEDS: LISINOPRIL 40 MG TAB PO SCH (09:01)
[2017-02-11] MEDS ORDERED: ACET65TA PO (10:27)
[2017-02-11] MEDS ORDERED: BACL5TA PO (10:27)
--- NOTE | 2017-02-11 16:10 | DSES ---
DATE OF ADMISSION: 02/10/2017 DATE OF DISCHARGE: 02/11/2017 PRIMARY CARE PROVIDER: Gustavo Martin. CONSULTANTS: Orthopedic surgery, Dr. Rocha. PROCEDURES: None. COMPLICATIONS: None. ADMISSION/DISCHARGE DIAGNOSES: 1. Bilateral posterior tibial tendinitis. 2. Right lower extremity muscle sprain/strain. 3. Hypertension. 4. Diabetes. 5. Gout. HOSPITALIZATION COURSE: The patient is an 86-year-old male admitted to [facility] on 02/10/2017, for right lower extremity pain interfering with daily activities of living. The patient started on pain medication with non-steroidal anti-inflammatory drugs (NSAIDs) and was on muscle relaxant. Due to concern for right ankle instability, orthopedic surgery was consulted, and he recommended to continue medical management and the patient is being evaluated by physical therapy 02/10. On 02/11/2017, the patient was determined medically stable for discharge with recommendation to followup with the primary care provider. OBJECTIVE: VITAL SIGNS: Temperature 97.8, pulse 63, respiratory rate 20, blood pressure 157/72, pulse oximetry 95% on room air. LABORATORY DATA: WBC 4.9, hemoglobin 12.6, hematocrit 38.1, platelet count is 126. Sodium is 137. Potassium 4.6, chloride 106, carbon dioxide 25, BUN 21, creatinine 1.3, GFR is 55.6, fasting glucose 225, calcium 9.1. IMAGING: Ultrasound of the right lower extremity showed no evidence of deep venous thrombosis (DVT). Shoulder x-ray showed moderate degenerative changes. Hip x-ray showed symmetric mild to moderate degenerative changes. Left shoulder x-ray showed recession versus resorption of distal clavicle but remains stable. Mild degenerative changes to the glenohumeral joint. Right knee x-ray showed moderate arthritic degenerative changes. Right ankle x-ray showed there is plantar calcaneal spurring. No other bony abnormalities. DISCHARGE MEDICATIONS: - Tylenol 650 mg by mouth every eight hours as needed - Baclofen 5 mg by mouth twice a day - allopurinol 100 mg by mouth daily - Levemir 50 units subcutaneous every evening - Synthroid 75 mcg by mouth daily - lisinopril 40 mg by mouth daily - magnesium oxide 400 mg by mouth daily - meloxicam 7.5 mg by mouth daily - omeprazole 20 mg by mouth twice a day - Pravastatin 40 mg by mouth at bedtime - Sertraline 25 mg by mouth daily - Januvia 50 mg by mouth daily DISCHARGE INSTRUCTIONS: Discontinue lines. Discharge home. Activity as tolerated. Consistent carbohydrate diet as tolerated. The patient should followup with the primary care provider in one week. CONDITION ON DISCHARGE: Stable.
== END 2017-02-11 11:56 | disposition home or self-care (01) ==
LOC: EDBD 21:03 → M ED 22:05 → M ED INP 02-10 04:22 → INTOOBSV 02-10 04:22 → M MS5PR 02-10 05:05
PROVIDERS: ADMIT Internal Medicine; ATTEND Internal Medicine
DX: M76.821 Posterior tibial tendinitis, right leg (principal); M76.822 Posterior tibial tendinitis, left leg; S86.911A Strain of unspecified muscle(s) and tendon(s) at lower leg level, right leg, initial encounter; I10 Essential (primary) hypertension; E11.9 Type 2 diabetes mellitus without complications; M10.9 Gout, unspecified; Z79.899 Other long term (current) drug therapy; Z79.4 Long term (current) use of insulin; E78.00 Pure hypercholesterolemia, unspecified; E03.9 Hypothyroidism, unspecified; K21.9 Gastro-esophageal reflux disease without esophagitis; Y92.9 Unspecified place or not applicable; Y93.9 Activity, unspecified
CPT/HCPCS: 36415; 73020; 73030; 73521; 73564; 73610; 80048; 82550; 85025; 85027; 93971; 96374; 97161; 99284; G0378; J3010

== ENCOUNTER 2017-03-15 12:34 | Emergency (ER) | payer OTHER ==
[~2017-03-15] VITALS: Ht 170.2 cm; Wt 84.1 kg
[~2017-03-15 12:34] MED LIST changes: +BACL10TA5 PO; +MAG400TA PO; +MAPA325T3 PO; +MELO7.5T7 PO
[2017-03-15] MEDS ORDERED: PRED10PA (12:48)
[2017-03-15] MEDS ORDERED: COLC1TAB14 (12:48)
[2017-03-15 13:49] LABS: BASO % 0.2 % (0.0-1.0); EOS % 0.4 % (0.0-3.0); LARGE UNSTAINED CELL % 0.7 % (0.0-4.0); LYMPH # 0.6 K/mm3 (1.5-4.5); LYMPH % 11.2 % (24.0-44.0); MEAN CORPUSCULAR HEMOGLOBIN 31.9 pg (27.0-33.0); MEAN CORPUSCULAR HGB CONC 33.8 g/dl (32.0-36.5); MEAN CORPUSCULAR VOLUME 94.5 fl (80.0-96.0); MONO # 0.1 K/mm3 (0.0-0.8); MONO % 1.9 % (0.0-5.0); NEUTROPHILS # 4.3 K/mm3 (1.8-7.7); NEUTROPHILS % 85.4 % (36.0-66.0); PLATELET COUNT, AUTOMATED 166 k/mm3 (150-450); RED CELL DISTRIBUTION WIDTH 13.8 % (11.5-14.5)
[2017-03-15 13:59] LABS: ALBUMIN 3.5 GM/DL (3.2-5.2); ALBUMIN/GLOBULIN RATIO 1.09 (1.00-1.93); ALKALINE PHOSPHATASE 84 U/L (45-117); ALT/SGPT 36 U/L (12-78); ANION GAP 9 MEQ/L (8-16); AST/SGOT 29 U/L (15-37); BILIRUBIN,DIRECT < 0.1 MG/DL (0.0-0.2); BILIRUBIN,TOTAL 0.4 MG/DL (0.2-1.0); BLOOD UREA NITROGEN 27 MG/DL (7-18); CALCIUM LEVEL 8.5 MG/DL (8.8-10.2); CARBON DIOXIDE LEVEL 22 MEQ/L (21-32); CHLORIDE LEVEL 106 MEQ/L (98-107); CREATININE FOR GFR 1.41 MG/DL (0.70-1.30); GLOMERULAR FILTRATION RATE 50.6 (>35); GLUCOSE, FASTING 367 MG/DL (83-110); POTASSIUM SERUM 4.3 MEQ/L (3.5-5.1); SODIUM LEVEL 137 MEQ/L (136-145); TOTAL PROTEIN 6.7 GM/DL (6.4-8.2)
--- NOTE | 2017-03-15 14:13 | REP ---
Chest two views HISTORY: Altered mental status Comparison: 11/05/2016 The lungs are clear. The heart is normal in size. The pulmonary vasculature is normal in appearance. The bony structure is intact. IMPRESSION: No acute disease. Signed by Ellis Kam MD 03/15/2017 02:04 P
[2017-03-15 16:02] VITALS: O2SAT 96
[2017-03-15 16:54] VITALS: BP 135/65
--- NOTE | 2017-03-15 18:30 | ECGEPIP ---
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
== END 2017-03-15 17:06 | disposition home or self-care (01) ==
LOC: M ED 12:34
DX: R42 Dizziness and giddiness (principal); R00.2 Palpitations; I10 Essential (primary) hypertension; N40.0 Benign prostatic hyperplasia without lower urinary tract symptoms; Z88.6 Allergy status to analgesic agent

== ENCOUNTER 2017-09-21 05:55 | Emergency (ER) | payer OTHER ==
[2017-09-21] MEDS: NS 500 ML IV (06:45)
[2017-09-21 06:49] LABS: BASO % 0.3 % (0.0-1.0); EOS # 0.2 10^3/uL (0.0-0.50); EOS % 5.4 % (0.0-3.0); HEMATOCRIT 32.7 % (42.0-52.0); IMMATURE GRANULOCYTE % 0.3 % (0-0); LYMPH % 26.4 % (24.0-44.0); MEAN CORPUSCULAR HEMOGLOBIN 30.2 pg (27.0-33.0); MEAN CORPUSCULAR HGB CONC 33.6 g/dl (32.0-36.5); MEAN CORPUSCULAR VOLUME 89.8 fl (80.0-96.0); MONO # 0.4 10^3/uL (0.0-0.8); MONO % 10.1 % (0.0-5.0); NEUTROPHILS # 2.2 10^3/uL (1.8-7.7); NEUTROPHILS % 57.5 % (36.0-66.0); PLATELET COUNT, AUTOMATED 143 10^3/uL (150-450); RED BLOOD COUNT 3.64 10^6/uL (4.30-6.10); RED CELL DISTRIBUTION WIDTH 14.4 % (11.5-14.5); WHITE BLOOD COUNT 3.9 10^3/uL (4.0-10.0)
[2017-09-21 07:06] LABS: ANION GAP 7 MEQ/L (8-16); BLOOD UREA NITROGEN 21 MG/DL (7-18); CALCIUM LEVEL 8.8 MG/DL (8.8-10.2); CARBON DIOXIDE LEVEL 25 MEQ/L (21-32); CHLORIDE LEVEL 110 MEQ/L (98-107); CREATININE FOR GFR 1.23 MG/DL (0.70-1.30); GLOMERULAR FILTRATION RATE 59.1 (>35); GLUCOSE, FASTING 191 MG/DL (83-110); SODIUM LEVEL 142 MEQ/L (136-145)
== END 2017-09-21 08:45 | disposition home or self-care (01) ==
LOC: M ED 05:55
DX: J02.9 Acute pharyngitis, unspecified (principal); R05 Cough; H93.90 Unspecified disorder of ear, unspecified ear; I10 Essential (primary) hypertension; E11.9 Type 2 diabetes mellitus without complications; K21.9 Gastro-esophageal reflux disease without esophagitis; Z87.891 Personal history of nicotine dependence; Z88.6 Allergy status to analgesic agent; Z79.899 Other long term (current) drug therapy; Z79.4 Long term (current) use of insulin

== ENCOUNTER 2017-09-23 05:56 | Inpatient (IN) | payer OTHER ==
[2017-09-23 07:18] LABS: BASO % 0.3 % (0.0-1.0); EOS # 0.2 10^3/uL (0.0-0.50); EOS % 5.3 % (0.0-3.0); HEMATOCRIT 31.4 % (42.0-52.0); HEMOGLOBIN 10.6 g/dl (14.0-18.0); IMMATURE GRANULOCYTE % 0.5 % (0-0); LYMPH # 0.9 10^3/uL (1.5-4.5); LYMPH % 24.5 % (24.0-44.0); MEAN CORPUSCULAR HGB CONC 33.8 g/dl (32.0-36.5); MONO # 0.4 10^3/uL (0.0-0.8); MONO % 10.4 % (0.0-5.0); NEUTROPHILS # 2.2 10^3/uL (1.8-7.7); PLATELET COUNT, AUTOMATED 138 10^3/uL (150-450); RED BLOOD COUNT 3.53 10^6/uL (4.30-6.10); RED CELL DISTRIBUTION WIDTH 14.5 % (11.5-14.5); WHITE BLOOD COUNT 3.8 10^3/uL (4.0-10.0)
[2017-09-23 07:42] LABS: LACTIC ACID SEPSIS PROTOCOL 1.7 MMOL/L (0.4-2.0)
[2017-09-23 07:43] LABS: ANION GAP 7 MEQ/L (8-16); BLOOD UREA NITROGEN 16 MG/DL (7-18); CALCIUM LEVEL 8.6 MG/DL (8.8-10.2); CARBON DIOXIDE LEVEL 27 MEQ/L (21-32); CHLORIDE LEVEL 108 MEQ/L (98-107); CREATININE FOR GFR 1.11 MG/DL (0.70-1.30); GLOMERULAR FILTRATION RATE > 60.0 (>35); GLUCOSE, FASTING 205 MG/DL (83-110); NT-PRO BNP 302 PG/ML (<450); POTASSIUM SERUM 3.6 MEQ/L (3.5-5.1); SODIUM LEVEL 142 MEQ/L (136-145)
[2017-09-23 08:25] LABS: CPK CREATINE PHOSPHOKINASE 191 U/L (39-308); TROPONIN I < 0.02 NG/ML (< 0.10)
[2017-09-23 08:26] LABS: CK-MB VALUE MASS 4.3 NG/ML (0.0-3.6); MB/CK RELATIVE INDEX 2.25 (< OR =4)
[2017-09-23 11:06] LABS: INR 1.01; PROTHROMBIN TIME 13.4 SECONDS (12.4-14.5)
[2017-09-23 11:07] LABS: PARTIAL THROMBOPLASTIN TIME 31.3 SECONDS (26.8-37.9)
[2017-09-23 11:22] LABS: ALBUMIN 3.5 GM/DL (3.2-5.2); ALBUMIN/GLOBULIN RATIO 1.17 (1.00-1.93); ALKALINE PHOSPHATASE 70 U/L (45-117); ALT/SGPT 31 U/L (12-78); AST/SGOT 28 U/L (7-37); BILIRUBIN,DIRECT < 0.1 MG/DL (0.0-0.2); BILIRUBIN,TOTAL 0.4 MG/DL (0.2-1.0); MAGNESIUM LEVEL 1.4 MG/DL (1.8-2.4); TOTAL PROTEIN 6.5 GM/DL (6.4-8.2)
[2017-09-23 12:38] LABS: BEDSIDE GLUCOSE 240 MG/DL (83-110)
[2017-09-23] MEDS ORDERED: IPRATROPIUM 0.5MG/ALBUTEROL 2.5MG INH SOL UD 3ML (DUONEB)(J7620) NEB (13:15)
[2017-09-23] MEDS ORDERED: GLUCAGON FOR INJ 1 MG VIAL (J1610) SC (13:30)
[2017-09-23] MEDS ORDERED: DEXTROSE 50% 50 ML SYRINGE IV (13:30)
[2017-09-23] MEDS ORDERED: GLUCOSE 4 GM CHEW TABLET PO (13:30)
[2017-09-23] MEDS: IPRATROPIUM 0.5MG/ALBUTEROL 2.5MG INH SOL UD 3ML (DUONEB)(J7620) NEB ×2 (14:00→21:03)
[2017-09-23 14:34] LABS: C REACTIVE PROTEIN QUANTITATIV 0.37 MG/DL (0.00-0.30)
[2017-09-23] MEDS: HumaLOG INSULIN (NovoLOG) PER UNIT SC ×3 (14:38→21:00)
[2017-09-23 14:40] LABS: BEDSIDE GLUCOSE 171 MG/DL (83-110)
[2017-09-23] MEDS: LISINOPRIL 20 MG TAB PO (15:45)
[2017-09-23] MEDS: SERTRALINE HCL 25 MG TABLET PO (15:45)
[2017-09-23] MEDS: BENZONATATE 100 MG CAP PO ×2 (15:45→21:34)
[2017-09-23] MEDS: ALLOPURINOL 100 MG TAB PO (15:46)
[2017-09-23] MEDS: HEPARIN SOD (PORCINE) 5000 UNITS/ML VIAL SC ×2 (15:47→21:31)
[2017-09-23] MEDS: MAG SULF 1GM/100ML (MAG RUN) 1 GM in APPROPRIATE DILUENT 1 EA IV (15:47)
[2017-09-23] MEDS: ONDANSETRON 4MG/2ML VIAL (J2405) IV (17:21)
[2017-09-23] MEDS: AZITHROMYCIN INJ 500 MG, VIAL MATE ADAPTER 1 EACH in D5W 250 ML IV (17:23)
[2017-09-23 18:17] LABS: BEDSIDE GLUCOSE 225 MG/DL (83-110)
[2017-09-23] MEDS: MORPHINE 2 MG/ML 1ML SYRINGE IV (18:22)
[2017-09-23] MEDS: LIDOCAINE 5% (LIDODERM) PATCH TD (18:22)
[2017-09-23] MEDS: **NOTE PATIENT COMMENT** MISC XX (21:00)
[2017-09-23 21:26] LABS: BEDSIDE GLUCOSE 186 MG/DL (83-110)
[2017-09-23] MEDS: ACETAMINOPHEN TAB 650MG DOSE (2X325MG) PO (21:30)
[2017-09-23] MEDS: SENOKOT S TAB PO (21:30)
[2017-09-23] MEDS: PRAVASTATIN 20 MG TAB PO (21:30)
[2017-09-23] MEDS: OMEPRAZOLE 20 MG CAP PO (21:30)
[2017-09-23] MEDS: LEVEMIR (INSULIN DETEMIR) 1 UNITS/0.01ML SC (21:31)
[2017-09-24] MEDS: IPRATROPIUM 0.5MG/ALBUTEROL 2.5MG INH SOL UD 3ML (DUONEB)(J7620) NEB ×3 (01:09→15:17)
[2017-09-24] MEDS: HEPARIN SOD (PORCINE) 5000 UNITS/ML VIAL SC ×3 (05:15→21:07)
[2017-09-24] MEDS: ACETAMINOPHEN TAB 650MG DOSE (2X325MG) PO ×3 (05:15→21:06)
[2017-09-24] MEDS: LEVOTHYROXINE 75MCG TABLET (0.075MG) PO (05:15)
[2017-09-24 05:34] LABS: BASO % 0.3 % (0.0-1.0); EOS # 0.2 10^3/uL (0.0-0.50); EOS % 7.4 % (0.0-3.0); HEMATOCRIT 32.1 % (42.0-52.0); HEMOGLOBIN 10.5 g/dl (14.0-18.0); IMMATURE GRANULOCYTE % 0.3 % (0-0); LYMPH # 0.9 10^3/uL (1.5-4.5); LYMPH % 29.1 % (24.0-44.0); MEAN CORPUSCULAR HEMOGLOBIN 29.4 pg (27.0-33.0); MEAN CORPUSCULAR HGB CONC 32.7 g/dl (32.0-36.5); MEAN CORPUSCULAR VOLUME 89.9 fl (80.0-96.0); MONO # 0.4 10^3/uL (0.0-0.8); MONO % 12.1 % (0.0-5.0); NEUTROPHILS # 1.6 10^3/uL (1.8-7.7); NEUTROPHILS % 50.8 % (36.0-66.0); PLATELET COUNT, AUTOMATED 136 10^3/uL (150-450); RED BLOOD COUNT 3.57 10^6/uL (4.30-6.10); RED CELL DISTRIBUTION WIDTH 14.3 % (11.5-14.5); WHITE BLOOD COUNT 3.2 10^3/uL (4.0-10.0)
[2017-09-24 05:57] LABS: ANION GAP 7 MEQ/L (8-16); BLOOD UREA NITROGEN 17 MG/DL (7-18); CALCIUM LEVEL 8.4 MG/DL (8.8-10.2); CARBON DIOXIDE LEVEL 29 MEQ/L (21-32); CHLORIDE LEVEL 109 MEQ/L (98-107); GLOMERULAR FILTRATION RATE > 60.0 (>35); GLUCOSE, FASTING 160 MG/DL (83-110); MAGNESIUM LEVEL 1.8 MG/DL (1.8-2.4); POTASSIUM SERUM 3.7 MEQ/L (3.5-5.1); SODIUM LEVEL 145 MEQ/L (136-145)
[2017-09-24] MEDS: HumaLOG INSULIN (NovoLOG) PER UNIT SC ×4 (08:56→20:56)
[2017-09-24] MEDS: OMEPRAZOLE 20 MG CAP PO (08:56)
[2017-09-24] MEDS: SERTRALINE HCL 25 MG TABLET PO (08:56)
[2017-09-24] MEDS: ALLOPURINOL 100 MG TAB PO (08:56)
[2017-09-24] MEDS: SENOKOT S TAB PO ×2 (08:56→20:56)
[2017-09-24] MEDS ORDERED: CEPACOL LOZENGE PO (09:00)
[2017-09-24] MEDS: MIRALAX *UNIT DOSE* 17GM PACKET PO ×2 (09:00→20:56)
[2017-09-24] MEDS: LIDOCAINE 5% (LIDODERM) PATCH TD (11:17)
[2017-09-24] MEDS: guaiFENesin ER 600 MG TAB PO ×2 (11:17→21:06)
[2017-09-24 11:33] LABS: BEDSIDE GLUCOSE 323 MG/DL (83-110)
[2017-09-24] MEDS ORDERED: MOM 30ML SUSPENSION UDC PO (12:30)
[2017-09-24] MEDS ORDERED: SENNA 8.6 MG TAB (SENOKOT) PO (12:30)
[2017-09-24] MEDS: SIMETHICONE 80 MG CHEW TAB PO (15:57)
[2017-09-24] MEDS: AZITHROMYCIN INJ 500 MG, VIAL MATE ADAPTER 1 EACH in D5W 250 ML IV (15:58)
[2017-09-24 16:18] LABS: TROPONIN I < 0.02 NG/ML (< 0.10)
[2017-09-24] MEDS: BENZONATATE 100 MG CAP PO ×2 (17:28→22:19)
[2017-09-24] MEDS: FUROSEMIDE 40 MG/4 ML VIAL (J1940) IV (17:29)
[2017-09-24 17:32] LABS: BEDSIDE GLUCOSE 183 MG/DL (83-110)
[2017-09-24 20:33] LABS: BEDSIDE GLUCOSE 193 MG/DL (83-110)
[2017-09-24] MEDS: **NOTE PATIENT COMMENT** MISC XX ×2 (21:00)
[2017-09-24] MEDS: PRAVASTATIN 20 MG TAB PO (21:06)
[2017-09-24] MEDS: LEVEMIR (INSULIN DETEMIR) 1 UNITS/0.01ML SC (21:07)
[2017-09-25] MEDS: LEVOTHYROXINE 75MCG TABLET (0.075MG) PO (06:19)
[2017-09-25] MEDS: HEPARIN SOD (PORCINE) 5000 UNITS/ML VIAL SC ×3 (06:19→21:30)
[2017-09-25 06:32] LABS: BASO % 0.3 % (0.0-1.0); EOS # 0.3 10^3/uL (0.0-0.50); EOS % 8.4 % (0.0-3.0); HEMATOCRIT 34.2 % (42.0-52.0); HEMOGLOBIN 11.2 g/dl (14.0-18.0); IMMATURE GRANULOCYTE % 0.3 % (0-0); LYMPH # 0.9 10^3/uL (1.5-4.5); LYMPH % 22.4 % (24.0-44.0); MEAN CORPUSCULAR HEMOGLOBIN 29.9 pg (27.0-33.0); MEAN CORPUSCULAR HGB CONC 32.7 g/dl (32.0-36.5); MEAN CORPUSCULAR VOLUME 91.2 fl (80.0-96.0); MONO # 0.6 10^3/uL (0.0-0.8); MONO % 14.2 % (0.0-5.0); NEUTROPHILS # 2.1 10^3/uL (1.8-7.7); NEUTROPHILS % 54.4 % (36.0-66.0); PLATELET COUNT, AUTOMATED 136 10^3/uL (150-450); RED BLOOD COUNT 3.75 10^6/uL (4.30-6.10); RED CELL DISTRIBUTION WIDTH 14.6 % (11.5-14.5); WHITE BLOOD COUNT 3.9 10^3/uL (4.0-10.0)
[2017-09-25 06:53] LABS: ANION GAP 6 MEQ/L (8-16); BLOOD UREA NITROGEN 21 MG/DL (7-18); CALCIUM LEVEL 9.2 MG/DL (8.8-10.2); CARBON DIOXIDE LEVEL 34 MEQ/L (21-32); CHLORIDE LEVEL 102 MEQ/L (98-107); CREATININE FOR GFR 1.32 MG/DL (0.70-1.30); GLOMERULAR FILTRATION RATE 54.5 (>35); GLUCOSE, FASTING 136 MG/DL (83-110); MAGNESIUM LEVEL 1.9 MG/DL (1.8-2.4); POTASSIUM SERUM 3.9 MEQ/L (3.5-5.1); SODIUM LEVEL 142 MEQ/L (136-145)
[2017-09-25] MEDS: IPRATROPIUM 0.5MG/ALBUTEROL 2.5MG INH SOL UD 3ML (DUONEB)(J7620) NEB ×3 (07:29→22:21)
[2017-09-25] MEDS: FUROSEMIDE 40 MG/4 ML VIAL (J1940) IV (09:07)
[2017-09-25] MEDS: BENZONATATE 100 MG CAP PO ×2 (09:07→20:48)
[2017-09-25] MEDS: SERTRALINE HCL 25 MG TABLET PO (09:07)
[2017-09-25] MEDS: MIRALAX *UNIT DOSE* 17GM PACKET PO ×2 (09:07→20:49)
[2017-09-25] MEDS: ACETAMINOPHEN TAB 650MG DOSE (2X325MG) PO ×2 (09:07→20:48)
[2017-09-25] MEDS: LIDOCAINE 5% (LIDODERM) PATCH TD (09:08)
[2017-09-25] MEDS: guaiFENesin ER 600 MG TAB PO ×2 (09:08→20:48)
[2017-09-25] MEDS: SENOKOT S TAB PO ×2 (09:08→20:49)
[2017-09-25] MEDS: ALLOPURINOL 100 MG TAB PO (09:08)
[2017-09-25] MEDS: HumaLOG INSULIN (NovoLOG) PER UNIT SC ×4 (09:10→20:47)
[2017-09-25 11:38] LABS: BEDSIDE GLUCOSE 182 MG/DL (83-110)
[2017-09-25] MEDS: AZITHROMYCIN 250 MG TAB PO (14:11)
[2017-09-25] MEDS: ONDANSETRON 4MG/2ML VIAL (J2405) IV (18:59)
[2017-09-25] MEDS: LEVEMIR (INSULIN DETEMIR) 1 UNITS/0.01ML SC (20:47)
[2017-09-25] MEDS: SIMETHICONE 80 MG CHEW TAB PO (20:48)
[2017-09-25] MEDS: PRAVASTATIN 20 MG TAB PO (20:48)
[2017-09-25] MEDS: **NOTE PATIENT COMMENT** MISC XX ×2 (20:49)
[2017-09-25 23:32] LABS: BEDSIDE GLUCOSE 200 MG/DL (83-110)
[2017-09-25 23:32] LABS: BEDSIDE GLUCOSE 252 MG/DL (83-110)
[2017-09-26] MEDS: IPRATROPIUM 0.5MG/ALBUTEROL 2.5MG INH SOL UD 3ML (DUONEB)(J7620) NEB ×4 (01:58→20:35)
[2017-09-26] MEDS: ACETAMINOPHEN TAB 650MG DOSE (2X325MG) PO (04:49)
[2017-09-26] MEDS: HEPARIN SOD (PORCINE) 5000 UNITS/ML VIAL SC ×3 (04:50→22:40)
[2017-09-26] MEDS: LEVOTHYROXINE 75MCG TABLET (0.075MG) PO (04:50)
[2017-09-26 07:10] LABS: BASO % 0.5 % (0.0-1.0); EOS # 0.4 10^3/uL (0.0-0.50); EOS % 10.1 % (0.0-3.0); HEMATOCRIT 35.8 % (42.0-52.0); HEMOGLOBIN 11.8 g/dl (14.0-18.0); IMMATURE GRANULOCYTE % 0.3 % (0-0); LYMPH # 1.1 10^3/uL (1.5-4.5); MEAN CORPUSCULAR HEMOGLOBIN 29.7 pg (27.0-33.0); MEAN CORPUSCULAR VOLUME 90.2 fl (80.0-96.0); MONO # 0.6 10^3/uL (0.0-0.8); MONO % 15.7 % (0.0-5.0); NEUTROPHILS # 1.7 10^3/uL (1.8-7.7); NEUTROPHILS % 44.4 % (36.0-66.0); PLATELET COUNT, AUTOMATED 165 10^3/uL (150-450); RED BLOOD COUNT 3.97 10^6/uL (4.30-6.10); RED CELL DISTRIBUTION WIDTH 14.7 % (11.5-14.5); WHITE BLOOD COUNT 3.8 10^3/uL (4.0-10.0)
[2017-09-26 07:36] LABS: ANION GAP 7 MEQ/L (8-16); BLOOD UREA NITROGEN 28 MG/DL (7-18); CALCIUM LEVEL 9.2 MG/DL (8.8-10.2); CARBON DIOXIDE LEVEL 31 MEQ/L (21-32); CHLORIDE LEVEL 102 MEQ/L (98-107); CREATININE FOR GFR 1.47 MG/DL (0.70-1.30); GLOMERULAR FILTRATION RATE 48.1 (>35); GLUCOSE, FASTING 142 MG/DL (83-110); MAGNESIUM LEVEL 1.8 MG/DL (1.8-2.4); POTASSIUM SERUM 4.2 MEQ/L (3.5-5.1); SODIUM LEVEL 140 MEQ/L (136-145)
[2017-09-26] MEDS: HumaLOG INSULIN (NovoLOG) PER UNIT SC ×4 (08:27→20:24)
[2017-09-26] MEDS: MIRALAX *UNIT DOSE* 17GM PACKET PO ×2 (08:27→20:24)
[2017-09-26] MEDS: AZITHROMYCIN 250 MG TAB PO (08:27)
[2017-09-26] MEDS: ALLOPURINOL 100 MG TAB PO (08:28)
[2017-09-26] MEDS: guaiFENesin ER 600 MG TAB PO ×2 (08:28→20:24)
[2017-09-26] MEDS: SENOKOT S TAB PO ×2 (08:28→20:24)
[2017-09-26] MEDS: FUROSEMIDE 40 MG TAB PO (08:28)
[2017-09-26] MEDS: LIDOCAINE 5% (LIDODERM) PATCH TD (08:28)
[2017-09-26] MEDS: SERTRALINE HCL 25 MG TABLET PO (08:28)
[2017-09-26] MEDS: BENZONATATE 100 MG CAP PO ×2 (08:28→20:23)
[2017-09-26] MEDS: PRAVASTATIN 20 MG TAB PO (20:23)
[2017-09-26] MEDS: **NOTE PATIENT COMMENT** MISC XX ×2 (20:25)
[2017-09-26] MEDS: LEVEMIR (INSULIN DETEMIR) 1 UNITS/0.01ML SC (20:25)
[2017-09-27] MEDS: IPRATROPIUM 0.5MG/ALBUTEROL 2.5MG INH SOL UD 3ML (DUONEB)(J7620) NEB ×4 (02:00→20:50)
[2017-09-27 03:56] LABS: BEDSIDE GLUCOSE 152 MG/DL (83-110)
[2017-09-27 03:56] LABS: BEDSIDE GLUCOSE 185 MG/DL (83-110)
[2017-09-27 03:56] LABS: BEDSIDE GLUCOSE 180 MG/DL (83-110)
[2017-09-27] MEDS: HEPARIN SOD (PORCINE) 5000 UNITS/ML VIAL SC ×3 (07:00→22:46)
[2017-09-27] MEDS: LEVOTHYROXINE 75MCG TABLET (0.075MG) PO (07:00)
[2017-09-27 07:09] LABS: BASO % 0.2 % (0.0-1.0); EOS # 0.2 10^3/uL (0.0-0.50); EOS % 3.6 % (0.0-3.0); HEMATOCRIT 36.3 % (42.0-52.0); IMMATURE GRANULOCYTE % 0.5 % (0-0); LYMPH # 1.2 10^3/uL (1.5-4.5); LYMPH % 27.5 % (24.0-44.0); MEAN CORPUSCULAR HEMOGLOBIN 29.6 pg (27.0-33.0); MEAN CORPUSCULAR HGB CONC 33.1 g/dl (32.0-36.5); MEAN CORPUSCULAR VOLUME 89.6 fl (80.0-96.0); MONO # 0.6 10^3/uL (0.0-0.8); MONO % 12.5 % (0.0-5.0); NEUTROPHILS # 2.5 10^3/uL (1.8-7.7); NEUTROPHILS % 55.7 % (36.0-66.0); PLATELET COUNT, AUTOMATED 166 10^3/uL (150-450); RED BLOOD COUNT 4.05 10^6/uL (4.30-6.10); RED CELL DISTRIBUTION WIDTH 14.9 % (11.5-14.5); WHITE BLOOD COUNT 4.4 10^3/uL (4.0-10.0)
[2017-09-27 07:33] LABS: ANION GAP 6 MEQ/L (8-16); BLOOD UREA NITROGEN 28 MG/DL (7-18); CALCIUM LEVEL 9.3 MG/DL (8.8-10.2); CARBON DIOXIDE LEVEL 30 MEQ/L (21-32); CHLORIDE LEVEL 104 MEQ/L (98-107); CREATININE FOR GFR 1.39 MG/DL (0.70-1.30); GLOMERULAR FILTRATION RATE 51.3 (>35); GLUCOSE, FASTING 114 MG/DL (70-100); MAGNESIUM LEVEL 1.9 MG/DL (1.8-2.4); POTASSIUM SERUM 4.2 MEQ/L (3.5-5.1); SODIUM LEVEL 140 MEQ/L (136-145)
[2017-09-27] MEDS: SODIUM CHLORIDE 0.9% 1000 ML IV (08:30)
[2017-09-27] MEDS: HumaLOG INSULIN (NovoLOG) PER UNIT SC ×4 (09:06→20:30)
[2017-09-27] MEDS: LIDOCAINE 5% (LIDODERM) PATCH TD (09:06)
[2017-09-27] MEDS: guaiFENesin ER 600 MG TAB PO ×2 (09:07→20:29)
[2017-09-27] MEDS: AZITHROMYCIN 250 MG TAB PO (09:07)
[2017-09-27] MEDS: ALLOPURINOL 100 MG TAB PO (09:07)
[2017-09-27] MEDS: SERTRALINE HCL 25 MG TABLET PO (09:07)
[2017-09-27] MEDS: BENZONATATE 100 MG CAP PO ×2 (09:07→20:29)
[2017-09-27 09:09] LABS: CK-MB VALUE MASS 3.5 NG/ML (0.0-3.6); CPK CREATINE PHOSPHOKINASE 182 U/L (39-308); MB/CK RELATIVE INDEX 1.92 (< OR =4); NT-PRO BNP 55 PG/ML (<450); TROPONIN I < 0.02 NG/ML (< 0.10)
[2017-09-27 09:12] LABS: LACTIC ACID SEPSIS PROTOCOL 2.1 MMOL/L (0.4-2.0)
[2017-09-27] MEDS: GASTROGRAFIN SOLUTION 30ML PO ×2 (09:56→09:57)
[2017-09-27] MEDS ORDERED: ISOVUE-370 76% 100ML VIAL (Q9967) As Ordered (10:45)
[2017-09-27] MEDS: NS 500 ML IV (13:15)
[2017-09-27] MEDS: OMEPRAZOLE 20 MG CAP PO (14:05)
[2017-09-27] MEDS: LISINOPRIL 20 MG TAB PO (14:06)
[2017-09-27] MEDS: PRAVASTATIN 20 MG TAB PO (20:29)
[2017-09-27] MEDS: LEVEMIR (INSULIN DETEMIR) 1 UNITS/0.01ML SC (20:30)
[2017-09-27] MEDS: **NOTE PATIENT COMMENT** MISC XX (20:30)
[2017-09-28] MEDS: ACETAMINOPHEN TAB 650MG DOSE (2X325MG) PO (00:09)
[2017-09-28] MEDS: IPRATROPIUM 0.5MG/ALBUTEROL 2.5MG INH SOL UD 3ML (DUONEB)(J7620) NEB ×3 (02:12→15:24)
[2017-09-28 03:12] LABS: BEDSIDE GLUCOSE 137 MG/DL (83-110)
[2017-09-28 03:12] LABS: BEDSIDE GLUCOSE 208 MG/DL (83-110)
[2017-09-28 03:12] LABS: BEDSIDE GLUCOSE 216 MG/DL (83-110)
[2017-09-28] MEDS: HEPARIN SOD (PORCINE) 5000 UNITS/ML VIAL SC ×2 (05:58→13:56)
[2017-09-28] MEDS: LEVOTHYROXINE 75MCG TABLET (0.075MG) PO (05:58)
[2017-09-28 07:32] LABS: BASO % 0.7 % (0.0-1.0); EOS # 0.2 10^3/uL (0.0-0.50); EOS % 6.4 % (0.0-3.0); HEMATOCRIT 31.2 % (42.0-52.0); HEMOGLOBIN 10.3 g/dl (14.0-18.0); IMMATURE GRANULOCYTE % 0.3 % (0-0); LYMPH # 1.1 10^3/uL (1.5-4.5); MONO # 0.4 10^3/uL (0.0-0.8); MONO % 12.2 % (0.0-5.0); NEUTROPHILS # 1.3 10^3/uL (1.8-7.7); NEUTROPHILS % 42.4 % (36.0-66.0); PLATELET COUNT, AUTOMATED 130 10^3/uL (150-450); RED BLOOD COUNT 3.43 10^6/uL (4.30-6.10); RED CELL DISTRIBUTION WIDTH 14.8 % (11.5-14.5)
[2017-09-28 07:47] LABS: ANION GAP 8 MEQ/L (8-16); BLOOD UREA NITROGEN 29 MG/DL (7-18); CALCIUM LEVEL 8.7 MG/DL (8.8-10.2); CARBON DIOXIDE LEVEL 26 MEQ/L (21-32); CHLORIDE LEVEL 108 MEQ/L (98-107); CREATININE FOR GFR 1.36 MG/DL (0.70-1.30); GLOMERULAR FILTRATION RATE 52.6 (>35); GLUCOSE, FASTING 134 MG/DL (70-100); MAGNESIUM LEVEL 2.1 MG/DL (1.8-2.4); SODIUM LEVEL 142 MEQ/L (136-145)
[2017-09-28] MEDS: AZITHROMYCIN 250 MG TAB PO (08:11)
[2017-09-28] MEDS: HumaLOG INSULIN (NovoLOG) PER UNIT SC ×2 (08:11→13:02)
[2017-09-28] MEDS: OMEPRAZOLE 20 MG CAP PO (08:11)
[2017-09-28] MEDS: SERTRALINE HCL 25 MG TABLET PO (08:12)
[2017-09-28] MEDS: ALLOPURINOL 100 MG TAB PO (08:12)
[2017-09-28] MEDS: LIDOCAINE 5% (LIDODERM) PATCH TD (08:12)
[2017-09-28] MEDS: guaiFENesin ER 600 MG TAB PO (08:12)
[2017-09-28] MEDS: BENZONATATE 100 MG CAP PO (08:12)
[2017-09-28] MEDS: LISINOPRIL 20 MG TAB PO (08:12)
[2017-09-29 05:49] LABS: BEDSIDE GLUCOSE 159 MG/DL (83-110)
== END 2017-09-28 15:59 | disposition home health service (06) | DRG 153 ==
LOC: M MS5PR 09-24 19:59 → M ED 05:56 → M ED INP 11:51 → M PCU 20:21
DX: J06.9 Acute upper respiratory infection, unspecified (principal); I10 Essential (primary) hypertension; K21.9 Gastro-esophageal reflux disease without esophagitis; Z87.891 Personal history of nicotine dependence; Z79.899 Other long term (current) drug therapy; Z79.4 Long term (current) use of insulin; Z88.6 Allergy status to analgesic agent; B97.4 Respiratory syncytial virus as the cause of diseases classified elsewhere; E03.9 Hypothyroidism, unspecified; R55 Syncope and collapse; M10.9 Gout, unspecified; M19.90 Unspecified osteoarthritis, unspecified site; E11.9 Type 2 diabetes mellitus without complications; E78.5 Hyperlipidemia, unspecified; K57.30 Diverticulosis of large intestine without perforation or abscess without bleeding; J44.9 Chronic obstructive pulmonary disease, unspecified; F02.80 Dementia in other diseases classified elsewhere, unspecified severity, without behavioral disturbance, psychotic disturbance, mood disturbance, and anxiety; K58.9 Irritable bowel syndrome, unspecified; K44.9 Diaphragmatic hernia without obstruction or gangrene; K74.69 Other cirrhosis of liver; M76.829 Posterior tibial tendinitis, unspecified leg

== ENCOUNTER 2017-09-29 13:38 | Inpatient (IN) | payer OTHER ==
[2017-09-29] MEDS: IPRATROPIUM 0.5MG/ALBUTEROL 2.5MG INH SOL UD 3ML (DUONEB)(J7620) NEB ×4 (14:49→20:59)
[2017-09-29 14:52] LABS: BASO % 0.2 % (0.0-1.0); EOS # 0.2 10^3/uL (0.0-0.50); EOS % 5.7 % (0.0-3.0); HEMATOCRIT 32.4 % (42.0-52.0); HEMOGLOBIN 10.8 g/dl (14.0-18.0); IMMATURE GRANULOCYTE % 0.2 % (0-0); LYMPH # 1.3 10^3/uL (1.5-4.5); LYMPH % 33.3 % (24.0-44.0); MEAN CORPUSCULAR HEMOGLOBIN 30.4 pg (27.0-33.0); MEAN CORPUSCULAR HGB CONC 33.3 g/dl (32.0-36.5); MEAN CORPUSCULAR VOLUME 91.3 fl (80.0-96.0); MONO # 0.4 10^3/uL (0.0-0.8); MONO % 8.7 % (0.0-5.0); NEUTROPHILS # 2.1 10^3/uL (1.8-7.7); NEUTROPHILS % 51.9 % (36.0-66.0); PLATELET COUNT, AUTOMATED 151 10^3/uL (150-450); RED BLOOD COUNT 3.55 10^6/uL (4.30-6.10); RED CELL DISTRIBUTION WIDTH 14.9 % (11.5-14.5)
[2017-09-29] MEDS: methylPREDNISolone INJ 125 MG/2 ML VIAL (J2930) IV ×2 (14:58→23:23)
[2017-09-29 15:04] LABS: ANION GAP 8 MEQ/L (8-16); BLOOD UREA NITROGEN 27 MG/DL (7-18); CALCIUM LEVEL 8.5 MG/DL (8.8-10.2); CARBON DIOXIDE LEVEL 24 MEQ/L (21-32); CHLORIDE LEVEL 107 MEQ/L (98-107); CK-MB VALUE MASS 4.5 NG/ML (0.0-3.6); CPK CREATINE PHOSPHOKINASE 217 U/L (39-308); CREATININE FOR GFR 1.38 MG/DL (0.70-1.30); GLOMERULAR FILTRATION RATE 51.8 (>35); GLUCOSE, FASTING 215 MG/DL (70-100); MB/CK RELATIVE INDEX 2.07 (< OR =4); POTASSIUM SERUM 4.5 MEQ/L (3.5-5.1); SODIUM LEVEL 139 MEQ/L (136-145); TROPONIN I < 0.02 NG/ML (< 0.10)
[2017-09-29 15:12] LABS: ALBUMIN 3.5 GM/DL (3.2-5.2); ALKALINE PHOSPHATASE 89 U/L (45-117); ALT/SGPT 42 U/L (12-78); AST/SGOT 47 U/L (7-37); BILIRUBIN,DIRECT < 0.1 MG/DL (0.0-0.2); BILIRUBIN,TOTAL 0.2 MG/DL (0.2-1.0); FREE T4 0.96 NG/DL (0.76-1.46); NT-PRO BNP 115 PG/ML (<450)
[2017-09-29] MEDS ORDERED: IPRATROPIUM 0.5MG/ALBUTEROL 2.5MG INH SOL UD 3ML (DUONEB)(J7620) NEB (16:45)
[2017-09-29] MEDS ORDERED: DEXTROSE 50% 50 ML SYRINGE IV (16:45)
[2017-09-29] MEDS ORDERED: GLUCAGON FOR INJ 1 MG VIAL (J1610) SC (16:45)
[2017-09-29] MEDS ORDERED: GLUCOSE 4 GM CHEW TABLET PO (16:45)
[2017-09-29] MEDS ORDERED: SIMETHICONE 80 MG CHEW TAB PO (16:45)
[2017-09-29] MEDS ORDERED: ONDANSETRON 4MG/2ML VIAL (J2405) IV (17:00)
[2017-09-29 18:40] LABS: CK-MB VALUE MASS 4.3 NG/ML (0.0-3.6); CPK CREATINE PHOSPHOKINASE 198 U/L (39-308); MB/CK RELATIVE INDEX 2.17 (< OR =4); TROPONIN I < 0.02 NG/ML (< 0.10)
[2017-09-29] MEDS: HumaLOG INSULIN (NovoLOG) PER UNIT SC ×2 (18:50→23:26)
[2017-09-29 18:52] LABS: BEDSIDE GLUCOSE 276 MG/DL (83-110)
[2017-09-29] MEDS ORDERED: LIDOCAINE 5% OINT 30 GM TOP (21:45)
[2017-09-29 23:05] LABS: BEDSIDE GLUCOSE 530 MG/DL (83-110)
[2017-09-29] MEDS: SENOKOT S TAB PO (23:24)
[2017-09-29] MEDS: HEPARIN SOD (PORCINE) 5000 UNITS/ML VIAL SC (23:24)
[2017-09-29] MEDS: guaiFENesin ER 600 MG TAB PO (23:24)
[2017-09-29] MEDS: BENZONATATE 100 MG CAP PO (23:24)
[2017-09-29] MEDS: OMEPRAZOLE 20 MG CAP PO (23:24)
[2017-09-29] MEDS: LEVEMIR (INSULIN DETEMIR) 1 UNITS/0.01ML SC (23:25)
[2017-09-29] MEDS: traMADol 50 MG TAB PO (23:25)
[2017-09-29] MEDS: hydrALAZINE INJ 20 MG/ML VIAL IV (23:36)
[2017-09-29] MEDS: PRAVASTATIN 20 MG TAB PO (23:39)
[2017-09-29 23:59] LABS: BEDSIDE GLUCOSE CONFIRMATION 560 MG/DL (LESS THAN 200)
[2017-09-30] MEDS: IPRATROPIUM 0.5MG/ALBUTEROL 2.5MG INH SOL UD 3ML (DUONEB)(J7620) NEB ×5 (01:09→21:47)
[2017-09-30 01:56] LABS: BEDSIDE GLUCOSE 466 MG/DL (83-110)
[2017-09-30 04:37] LABS: BEDSIDE GLUCOSE 373 MG/DL (83-110)
[2017-09-30] MEDS: hydrALAZINE INJ 20 MG/ML VIAL IV (06:00)
[2017-09-30] MEDS: HEPARIN SOD (PORCINE) 5000 UNITS/ML VIAL SC ×3 (06:13→21:16)
[2017-09-30] MEDS: methylPREDNISolone INJ 125 MG/2 ML VIAL (J2930) IV (06:13)
[2017-09-30] MEDS: LEVOTHYROXINE 75MCG TABLET (0.075MG) PO (06:13)
[2017-09-30 06:29] LABS: BEDSIDE GLUCOSE 354 MG/DL (83-110)
[2017-09-30 07:29] LABS: HEMATOCRIT 30.9 % (42.0-52.0); HEMOGLOBIN 10.2 g/dl (14.0-18.0); IMMATURE GRANULOCYTE % 0.4 % (0-0); LYMPH # 0.6 10^3/uL (1.5-4.5); LYMPH % 13.5 % (24.0-44.0); MEAN CORPUSCULAR HEMOGLOBIN 29.8 pg (27.0-33.0); MEAN CORPUSCULAR VOLUME 90.4 fl (80.0-96.0); MONO # 0.1 10^3/uL (0.0-0.8); MONO % 2.6 % (0.0-5.0); NEUTROPHILS # 3.8 10^3/uL (1.8-7.7); NEUTROPHILS % 83.5 % (36.0-66.0); PLATELET COUNT, AUTOMATED 130 10^3/uL (150-450); RED BLOOD COUNT 3.42 10^6/uL (4.30-6.10); RED CELL DISTRIBUTION WIDTH 14.5 % (11.5-14.5); WHITE BLOOD COUNT 4.6 10^3/uL (4.0-10.0)
[2017-09-30 07:49] LABS: ANION GAP 8 MEQ/L (8-16); BLOOD UREA NITROGEN 31 MG/DL (7-18); CALCIUM LEVEL 8.8 MG/DL (8.8-10.2); CARBON DIOXIDE LEVEL 24 MEQ/L (21-32); CHLORIDE LEVEL 104 MEQ/L (98-107); CREATININE FOR GFR 1.45 MG/DL (0.70-1.30); GLOMERULAR FILTRATION RATE 48.9 (>35); GLUCOSE, FASTING 312 MG/DL (70-100); POTASSIUM SERUM 4.5 MEQ/L (3.5-5.1); SODIUM LEVEL 136 MEQ/L (136-145)
[2017-09-30] MEDS: HumaLOG INSULIN (NovoLOG) PER UNIT SC ×4 (08:16→21:00)
[2017-09-30] MEDS: AZITHROMYCIN 250 MG TAB PO (08:17)
[2017-09-30] MEDS: LISINOPRIL 20 MG TAB PO (08:17)
[2017-09-30] MEDS: LEVEMIR (INSULIN DETEMIR) 1 UNITS/0.01ML SC ×2 (08:17→21:17)
[2017-09-30] MEDS: OMEPRAZOLE 20 MG CAP PO ×2 (08:17→21:16)
[2017-09-30] MEDS: SENOKOT S TAB PO ×2 (08:17→21:17)
[2017-09-30] MEDS: guaiFENesin ER 600 MG TAB PO ×2 (08:17→21:17)
[2017-09-30] MEDS: ALLOPURINOL 100 MG TAB PO (10:35)
[2017-09-30] MEDS: SERTRALINE HCL 25 MG TABLET PO (10:35)
[2017-09-30] MEDS: BENZONATATE 100 MG CAP PO ×3 (10:35→21:17)
[2017-09-30] MEDS: MIRALAX *UNIT DOSE* 17GM PACKET PO (10:35)
[2017-09-30] MEDS: AZELASTINE 137MCG NASAL SPY 30 ML (ASTELIN) (10:36)
[2017-09-30] MEDS: FLUTICASONE PROP 0.05% NASAL SPRAY 16 GM (FLONASE) (10:36)
[2017-09-30] MEDS: methylPREDNISolone INJ 40 MG/1 ML VIAL (J2920) IV (12:00)
[2017-09-30 12:09] LABS: BEDSIDE GLUCOSE 403 MG/DL (83-110)
[2017-09-30] MEDS: PRAVASTATIN 20 MG TAB PO (21:17)
[2017-09-30 22:19] LABS: BEDSIDE GLUCOSE 295 MG/DL (83-110)
[2017-09-30 22:19] LABS: BEDSIDE GLUCOSE 269 MG/DL (83-110)
[2017-10-01 00:20] LABS: CK-MB VALUE MASS 5.5 NG/ML (0.0-3.6); CPK CREATINE PHOSPHOKINASE 219 U/L (39-308); MB/CK RELATIVE INDEX 2.51 (< OR =4); TROPONIN I < 0.02 NG/ML (< 0.10)
[2017-10-01] MEDS: IPRATROPIUM 0.5MG/ALBUTEROL 2.5MG INH SOL UD 3ML (DUONEB)(J7620) NEB ×4 (00:33→21:12)
[2017-10-01] MEDS: ACETAMINOPHEN TAB 650MG DOSE (2X325MG) PO ×2 (00:40→20:07)
[2017-10-01] MEDS: methylPREDNISolone INJ 40 MG/1 ML VIAL (J2920) IV (00:40)
[2017-10-01 05:59] LABS: BASO % 0.1 % (0.0-1.0); HEMATOCRIT 30.9 % (42.0-52.0); HEMOGLOBIN 10.3 g/dl (14.0-18.0); IMMATURE GRANULOCYTE % 0.4 % (0-0); LYMPH # 0.7 10^3/uL (1.5-4.5); LYMPH % 10.1 % (24.0-44.0); MEAN CORPUSCULAR HEMOGLOBIN 29.6 pg (27.0-33.0); MEAN CORPUSCULAR HGB CONC 33.3 g/dl (32.0-36.5); MEAN CORPUSCULAR VOLUME 88.8 fl (80.0-96.0); MONO # 0.2 10^3/uL (0.0-0.8); MONO % 2.8 % (0.0-5.0); NEUTROPHILS # 6.1 10^3/uL (1.8-7.7); NEUTROPHILS % 86.6 % (36.0-66.0); PLATELET COUNT, AUTOMATED 145 10^3/uL (150-450); RED BLOOD COUNT 3.48 10^6/uL (4.30-6.10); RED CELL DISTRIBUTION WIDTH 14.7 % (11.5-14.5)
[2017-10-01] MEDS: LEVOTHYROXINE 75MCG TABLET (0.075MG) PO (06:05)
[2017-10-01] MEDS: HEPARIN SOD (PORCINE) 5000 UNITS/ML VIAL SC ×3 (06:05→20:14)
[2017-10-01 06:20] LABS: ANION GAP 9 MEQ/L (8-16); BLOOD UREA NITROGEN 32 MG/DL (7-18); CALCIUM LEVEL 8.9 MG/DL (8.8-10.2); CARBON DIOXIDE LEVEL 25 MEQ/L (21-32); CHLORIDE LEVEL 107 MEQ/L (98-107); CREATININE FOR GFR 1.31 MG/DL (0.70-1.30); GLUCOSE, FASTING 205 MG/DL (70-100); MAGNESIUM LEVEL 2.1 MG/DL (1.8-2.4); POTASSIUM SERUM 4.5 MEQ/L (3.5-5.1); SODIUM LEVEL 141 MEQ/L (136-145)
[2017-10-01] MEDS: HumaLOG INSULIN (NovoLOG) PER UNIT SC ×4 (08:16→20:14)
[2017-10-01] MEDS: LISINOPRIL 20 MG TAB PO (10:38)
[2017-10-01] MEDS: ALLOPURINOL 100 MG TAB PO (10:39)
[2017-10-01] MEDS: OMEPRAZOLE 20 MG CAP PO ×2 (10:40→20:07)
[2017-10-01] MEDS: AZITHROMYCIN 250 MG TAB PO (10:42)
[2017-10-01] MEDS: MIRALAX *UNIT DOSE* 17GM PACKET PO (10:42)
[2017-10-01] MEDS: guaiFENesin ER 600 MG TAB PO ×2 (10:42→20:07)
[2017-10-01] MEDS: BENZONATATE 100 MG CAP PO ×3 (10:42→20:07)
[2017-10-01] MEDS: SENOKOT S TAB PO ×2 (10:45→20:07)
[2017-10-01] MEDS: predniSONE 20 MG TAB PO (10:46)
[2017-10-01] MEDS: AZELASTINE 137MCG NASAL SPY 30 ML (ASTELIN) (10:48)
[2017-10-01] MEDS: FLUTICASONE PROP 0.05% NASAL SPRAY 16 GM (FLONASE) (10:49)
[2017-10-01] MEDS: LIDOCAINE 5% (LIDODERM) PATCH TD (10:52)
[2017-10-01] MEDS: LEVEMIR (INSULIN DETEMIR) 1 UNITS/0.01ML SC ×2 (10:53→20:07)
[2017-10-01] MEDS: SERTRALINE HCL 25 MG TABLET PO (11:00)
[2017-10-01 17:05] LABS: BEDSIDE GLUCOSE 286 MG/DL (83-110)
[2017-10-01] MEDS: PRAVASTATIN 20 MG TAB PO (20:06)
[2017-10-01] MEDS: **NOTE PATIENT COMMENT** MISC XX (21:00)
[2017-10-02] MEDS: IPRATROPIUM 0.5MG/ALBUTEROL 2.5MG INH SOL UD 3ML (DUONEB)(J7620) NEB ×4 (02:00→19:45)
[2017-10-02 02:19] LABS: BEDSIDE GLUCOSE 275 MG/DL (83-110)
[2017-10-02 02:19] LABS: BEDSIDE GLUCOSE 439 MG/DL (83-110)
[2017-10-02 02:38] LABS: BEDSIDE GLUCOSE 301 MG/DL (83-110)
[2017-10-02] MEDS: LEVOTHYROXINE 75MCG TABLET (0.075MG) PO (05:18)
[2017-10-02] MEDS: HEPARIN SOD (PORCINE) 5000 UNITS/ML VIAL SC ×3 (05:18→21:12)
[2017-10-02 05:56] LABS: BASO % 0.2 % (0.0-1.0); HEMATOCRIT 30.6 % (42.0-52.0); IMMATURE GRANULOCYTE % 0.5 % (0-0); LYMPH # 1.6 10^3/uL (1.5-4.5); LYMPH % 28.4 % (24.0-44.0); MEAN CORPUSCULAR HEMOGLOBIN 29.7 pg (27.0-33.0); MEAN CORPUSCULAR HGB CONC 32.7 g/dl (32.0-36.5); MEAN CORPUSCULAR VOLUME 90.8 fl (80.0-96.0); MONO # 0.4 10^3/uL (0.0-0.8); MONO % 7.3 % (0.0-5.0); NEUTROPHILS # 3.7 10^3/uL (1.8-7.7); NEUTROPHILS % 63.6 % (36.0-66.0); PLATELET COUNT, AUTOMATED 143 10^3/uL (150-450); RED BLOOD COUNT 3.37 10^6/uL (4.30-6.10); RED CELL DISTRIBUTION WIDTH 14.8 % (11.5-14.5); WHITE BLOOD COUNT 5.8 10^3/uL (4.0-10.0)
[2017-10-02 06:15] LABS: ANION GAP 6 MEQ/L (8-16); BLOOD UREA NITROGEN 31 MG/DL (7-18); CARBON DIOXIDE LEVEL 29 MEQ/L (21-32); CHLORIDE LEVEL 108 MEQ/L (98-107); CREATININE FOR GFR 1.23 MG/DL (0.70-1.30); GLOMERULAR FILTRATION RATE 59.1 (>35); GLUCOSE, FASTING 107 MG/DL (70-100); POTASSIUM SERUM 3.6 MEQ/L (3.5-5.1); SODIUM LEVEL 143 MEQ/L (136-145)
[2017-10-02] MEDS: HumaLOG INSULIN (NovoLOG) PER UNIT SC ×4 (07:30→21:12)
[2017-10-02] MEDS: MIRALAX *UNIT DOSE* 17GM PACKET PO (09:00)
[2017-10-02] MEDS: LIDOCAINE 5% (LIDODERM) PATCH TD (10:08)
[2017-10-02] MEDS: FLUTICASONE PROP 0.05% NASAL SPRAY 16 GM (FLONASE) (10:09)
[2017-10-02] MEDS: LEVEMIR (INSULIN DETEMIR) 1 UNITS/0.01ML SC ×2 (10:09→21:12)
[2017-10-02] MEDS: AZELASTINE 137MCG NASAL SPY 30 ML (ASTELIN) (10:09)
[2017-10-02] MEDS: ALLOPURINOL 100 MG TAB PO (10:09)
[2017-10-02] MEDS: predniSONE 20 MG TAB PO (10:10)
[2017-10-02] MEDS: SENOKOT S TAB PO ×2 (10:10→21:12)
[2017-10-02] MEDS: SERTRALINE HCL 25 MG TABLET PO (10:10)
[2017-10-02] MEDS: OMEPRAZOLE 20 MG CAP PO ×2 (10:10→21:13)
[2017-10-02] MEDS: DOXYCYCLINE HYCLATE 100 MG TAB PO ×2 (10:10→21:13)
[2017-10-02] MEDS: BENZONATATE 100 MG CAP PO ×3 (10:10→21:13)
[2017-10-02] MEDS: guaiFENesin ER 600 MG TAB PO ×2 (10:10→21:13)
[2017-10-02] MEDS: LISINOPRIL 20 MG TAB PO (10:12)
[2017-10-02 17:09] LABS: BEDSIDE GLUCOSE 333 MG/DL (83-110)
[2017-10-02 20:36] LABS: BEDSIDE GLUCOSE 352 MG/DL (83-110)
[2017-10-02] MEDS ORDERED: HEPARIN SOD (PORCINE) 5000 UNITS/ML VIAL As Ordered (20:55)
[2017-10-02] MEDS: **NOTE PATIENT COMMENT** MISC XX (21:00)
[2017-10-02] MEDS: PRAVASTATIN 20 MG TAB PO (21:12)
[2017-10-02] MEDS: ACETAMINOPHEN TAB 650MG DOSE (2X325MG) PO (21:13)
[2017-10-03] MEDS: IPRATROPIUM 0.5MG/ALBUTEROL 2.5MG INH SOL UD 3ML (DUONEB)(J7620) NEB ×4 (02:00→20:40)
[2017-10-03] MEDS: LEVOTHYROXINE 75MCG TABLET (0.075MG) PO (05:19)
[2017-10-03] MEDS: HEPARIN SOD (PORCINE) 5000 UNITS/ML VIAL SC ×3 (05:19→21:02)
[2017-10-03] MEDS: HumaLOG INSULIN (NovoLOG) PER UNIT SC ×4 (07:30→21:00)
[2017-10-03 08:30] LABS: BASO % 0.1 % (0.0-1.0); EOS % 0.5 % (0.0-3.0); HEMATOCRIT 34.5 % (42.0-52.0); HEMOGLOBIN 11.4 g/dl (14.0-18.0); IMMATURE GRANULOCYTE # 0.1 10^3/uL (0-0); IMMATURE GRANULOCYTE % 1.4 % (0-0); LYMPH # 2.5 10^3/uL (1.5-4.5); LYMPH % 31.4 % (24.0-44.0); MEAN CORPUSCULAR HEMOGLOBIN 30.2 pg (27.0-33.0); MEAN CORPUSCULAR VOLUME 91.5 fl (80.0-96.0); MONO # 0.7 10^3/uL (0.0-0.8); MONO % 8.4 % (0.0-5.0); NEUTROPHILS # 4.7 10^3/uL (1.8-7.7); NEUTROPHILS % 58.2 % (36.0-66.0); PLATELET COUNT, AUTOMATED 191 10^3/uL (150-450); RED BLOOD COUNT 3.77 10^6/uL (4.30-6.10); WHITE BLOOD COUNT 8.1 10^3/uL (4.0-10.0)
[2017-10-03 08:56] LABS: ANION GAP 9 MEQ/L (8-16); BLOOD UREA NITROGEN 31 MG/DL (7-18); CALCIUM LEVEL 9.3 MG/DL (8.8-10.2); CARBON DIOXIDE LEVEL 26 MEQ/L (21-32); CHLORIDE LEVEL 107 MEQ/L (98-107); CREATININE FOR GFR 1.35 MG/DL (0.70-1.30); GLOMERULAR FILTRATION RATE 53.1 (>35); GLUCOSE, FASTING 52 MG/DL (70-100); MAGNESIUM LEVEL 1.8 MG/DL (1.8-2.4); POTASSIUM SERUM 3.7 MEQ/L (3.5-5.1); SODIUM LEVEL 142 MEQ/L (136-145)
[2017-10-03] MEDS: OMEPRAZOLE 20 MG CAP PO ×2 (09:11→21:03)
[2017-10-03] MEDS: guaiFENesin ER 600 MG TAB PO ×2 (09:11→21:03)
[2017-10-03] MEDS: MIRALAX *UNIT DOSE* 17GM PACKET PO (09:11)
[2017-10-03] MEDS: BENZONATATE 100 MG CAP PO ×3 (09:13→21:02)
[2017-10-03] MEDS: ALLOPURINOL 100 MG TAB PO (09:13)
[2017-10-03] MEDS: LISINOPRIL 20 MG TAB PO (09:14)
[2017-10-03] MEDS: SENOKOT S TAB PO ×2 (09:15→21:03)
[2017-10-03] MEDS: DOXYCYCLINE HYCLATE 100 MG TAB PO ×2 (09:15→21:02)
[2017-10-03] MEDS: SERTRALINE HCL 25 MG TABLET PO (09:15)
[2017-10-03] MEDS: predniSONE 10 MG TAB PO (09:18)
[2017-10-03] MEDS: LIDOCAINE 5% (LIDODERM) PATCH TD (09:19)
[2017-10-03] MEDS: LEVEMIR (INSULIN DETEMIR) 1 UNITS/0.01ML SC ×2 (09:21→21:02)
[2017-10-03] MEDS: FLUTICASONE PROP 0.05% NASAL SPRAY 16 GM (FLONASE) (09:32)
[2017-10-03] MEDS: AZELASTINE 137MCG NASAL SPY 30 ML (ASTELIN) (09:32)
[2017-10-03 11:39] LABS: BEDSIDE GLUCOSE 218 MG/DL (83-110)
[2017-10-03 11:39] LABS: BEDSIDE GLUCOSE 196 MG/DL (83-110)
[2017-10-03 17:18] LABS: BEDSIDE GLUCOSE 223 MG/DL (83-110)
[2017-10-03] MEDS: **NOTE PATIENT COMMENT** MISC XX (21:00)
[2017-10-03] MEDS: PRAVASTATIN 20 MG TAB PO (21:02)
[2017-10-03] MEDS: ACETAMINOPHEN TAB 650MG DOSE (2X325MG) PO (21:03)
[2017-10-04] MEDS: IPRATROPIUM 0.5MG/ALBUTEROL 2.5MG INH SOL UD 3ML (DUONEB)(J7620) NEB ×4 (02:00→20:00)
[2017-10-04 05:32] LABS: BEDSIDE GLUCOSE 221 MG/DL (83-110)
[2017-10-04] MEDS: LEVOTHYROXINE 75MCG TABLET (0.075MG) PO (06:04)
[2017-10-04] MEDS: HEPARIN SOD (PORCINE) 5000 UNITS/ML VIAL SC ×3 (06:04→21:21)
[2017-10-04 07:04] LABS: BASO % 0.2 % (0.0-1.0); EOS # 0.1 10^3/uL (0.0-0.50); EOS % 1.3 % (0.0-3.0); HEMATOCRIT 33.4 % (42.0-52.0); HEMOGLOBIN 11.2 g/dl (14.0-18.0); IMMATURE GRANULOCYTE # 0.1 10^3/uL (0-0); IMMATURE GRANULOCYTE % 1.3 % (0-0); LYMPH # 2.3 10^3/uL (1.5-4.5); LYMPH % 37.8 % (24.0-44.0); MEAN CORPUSCULAR HEMOGLOBIN 30.3 pg (27.0-33.0); MEAN CORPUSCULAR HGB CONC 33.5 g/dl (32.0-36.5); MEAN CORPUSCULAR VOLUME 90.3 fl (80.0-96.0); MONO # 0.3 10^3/uL (0.0-0.8); MONO % 5.6 % (0.0-5.0); NEUTROPHILS # 3.2 10^3/uL (1.8-7.7); NEUTROPHILS % 53.8 % (36.0-66.0); PLATELET COUNT, AUTOMATED 178 10^3/uL (150-450); RED CELL DISTRIBUTION WIDTH 14.7 % (11.5-14.5)
[2017-10-04 07:19] LABS: ANION GAP 8 MEQ/L (8-16); BLOOD UREA NITROGEN 29 MG/DL (7-18); CALCIUM LEVEL 9.5 MG/DL (8.8-10.2); CARBON DIOXIDE LEVEL 26 MEQ/L (21-32); CHLORIDE LEVEL 109 MEQ/L (98-107); CREATININE FOR GFR 1.29 MG/DL (0.70-1.30); GLUCOSE, FASTING 60 MG/DL (70-100); MAGNESIUM LEVEL 1.8 MG/DL (1.8-2.4); POTASSIUM SERUM 3.7 MEQ/L (3.5-5.1); SODIUM LEVEL 143 MEQ/L (136-145)
[2017-10-04] MEDS: HumaLOG INSULIN (NovoLOG) PER UNIT SC ×4 (07:30→21:20)
[2017-10-04] MEDS: LEVEMIR (INSULIN DETEMIR) 1 UNITS/0.01ML SC ×4 (09:00→21:20)
[2017-10-04] MEDS: MIRALAX *UNIT DOSE* 17GM PACKET PO (10:23)
[2017-10-04] MEDS: BENZONATATE 100 MG CAP PO ×3 (10:24→21:19)
[2017-10-04] MEDS: LIDOCAINE 5% (LIDODERM) PATCH TD (10:24)
[2017-10-04] MEDS: predniSONE 10 MG TAB PO (10:25)
[2017-10-04] MEDS: OMEPRAZOLE 20 MG CAP PO ×2 (10:25→21:19)
[2017-10-04] MEDS: SERTRALINE HCL 25 MG TABLET PO (10:27)
[2017-10-04] MEDS: ACETAMINOPHEN TAB 650MG DOSE (2X325MG) PO ×3 (10:27→21:21)
[2017-10-04] MEDS: LISINOPRIL 20 MG TAB PO (10:28)
[2017-10-04] MEDS: SENOKOT S TAB PO ×2 (10:28→21:00)
[2017-10-04] MEDS: DOXYCYCLINE HYCLATE 100 MG TAB PO ×2 (10:28→21:19)
[2017-10-04] MEDS: AZELASTINE 137MCG NASAL SPY 30 ML (ASTELIN) (10:29)
[2017-10-04] MEDS: ALLOPURINOL 100 MG TAB PO (10:29)
[2017-10-04] MEDS: FLUTICASONE PROP 0.05% NASAL SPRAY 16 GM (FLONASE) (10:30)
[2017-10-04] MEDS: D5W/0.45% SODIUM CHLORIDE 1,000 ML IV (11:00)
[2017-10-04 11:21] LABS: BEDSIDE GLUCOSE 153 MG/DL (83-110)
[2017-10-04 11:21] LABS: BEDSIDE GLUCOSE 215 MG/DL (83-110)
[2017-10-04] MEDS: guaiFENesin ER 600 MG TAB PO ×2 (11:43→21:19)
[2017-10-04 12:07] LABS: BEDSIDE GLUCOSE 162 MG/DL (83-110)
[2017-10-04 17:25] LABS: BEDSIDE GLUCOSE 325 MG/DL (83-110)
[2017-10-04] MEDS ORDERED: LEVEMIR (INSULIN DETEMIR) 1 UNITS/0.01ML SC (21:00)
[2017-10-04 21:13] LABS: BEDSIDE GLUCOSE 294 MG/DL (83-110)
[2017-10-04] MEDS ORDERED: HEPARIN SOD (PORCINE) 5000 UNITS/ML VIAL As Ordered (21:14)
[2017-10-04] MEDS: PRAVASTATIN 20 MG TAB PO (21:19)
[2017-10-04] MEDS: **NOTE PATIENT COMMENT** MISC XX (21:23)
[2017-10-05] MEDS: IPRATROPIUM 0.5MG/ALBUTEROL 2.5MG INH SOL UD 3ML (DUONEB)(J7620) NEB ×3 (02:00→14:28)
[2017-10-05] MEDS: HEPARIN SOD (PORCINE) 5000 UNITS/ML VIAL SC (05:38)
[2017-10-05] MEDS: LEVOTHYROXINE 75MCG TABLET (0.075MG) PO (05:38)
[2017-10-05] MEDS: HumaLOG INSULIN (NovoLOG) PER UNIT SC ×2 (07:30→11:59)
[2017-10-05 07:33] LABS: BEDSIDE GLUCOSE 89 MG/DL (83-110)
[2017-10-05] MEDS: guaiFENesin ER 600 MG TAB PO (08:35)
[2017-10-05] MEDS: LEVEMIR (INSULIN DETEMIR) 1 UNITS/0.01ML SC (08:35)
[2017-10-05] MEDS: predniSONE 10 MG TAB PO (08:36)
[2017-10-05] MEDS: DOXYCYCLINE HYCLATE 100 MG TAB PO (08:37)
[2017-10-05] MEDS: LIDOCAINE 5% (LIDODERM) PATCH TD (08:37)
[2017-10-05] MEDS: ALLOPURINOL 100 MG TAB PO (08:37)
[2017-10-05] MEDS: BENZONATATE 100 MG CAP PO (08:37)
[2017-10-05] MEDS: OMEPRAZOLE 20 MG CAP PO (08:37)
[2017-10-05] MEDS: SENOKOT S TAB PO (08:37)
[2017-10-05] MEDS: LISINOPRIL 20 MG TAB PO (08:37)
[2017-10-05] MEDS: SERTRALINE HCL 25 MG TABLET PO (08:37)
[2017-10-05] MEDS: AZELASTINE 137MCG NASAL SPY 30 ML (ASTELIN) (08:38)
[2017-10-05] MEDS: MIRALAX *UNIT DOSE* 17GM PACKET PO (08:38)
[2017-10-05] MEDS: FLUTICASONE PROP 0.05% NASAL SPRAY 16 GM (FLONASE) (08:38)
[2017-10-05] MEDS ORDERED: LEVEMIR (INSULIN DETEMIR) 1 UNITS/0.01ML SC (21:00)
[2017-10-06 11:35] LABS: BEDSIDE GLUCOSE 183 MG/DL (83-110)
== END 2017-10-05 15:30 | disposition home health service (06) | DRG 192 ==
LOC: M MS5PR 09-30 13:55 → M ED 13:38 → M ED INP 17:07
DX: J44.1 Chronic obstructive pulmonary disease with (acute) exacerbation (principal); I16.0 Hypertensive urgency; E11.9 Type 2 diabetes mellitus without complications; K74.60 Unspecified cirrhosis of liver; Z66 Do not resuscitate; M19.90 Unspecified osteoarthritis, unspecified site; Z88.6 Allergy status to analgesic agent; Z79.899 Other long term (current) drug therapy; K57.30 Diverticulosis of large intestine without perforation or abscess without bleeding; F32.9 Major depressive disorder, single episode, unspecified; F41.9 Anxiety disorder, unspecified; E03.9 Hypothyroidism, unspecified; K21.9 Gastro-esophageal reflux disease without esophagitis; F02.80 Dementia in other diseases classified elsewhere, unspecified severity, without behavioral disturbance, psychotic disturbance, mood disturbance, and anxiety; K44.9 Diaphragmatic hernia without obstruction or gangrene; E78.5 Hyperlipidemia, unspecified; M10.9 Gout, unspecified; Z87.891 Personal history of nicotine dependence; M76.829 Posterior tibial tendinitis, unspecified leg

== ENCOUNTER 2017-10-14 20:01 | Inpatient (IN) | payer MEDICARE, OTHER ==
[2017-10-14] MEDS ORDERED: traZODone 50 MG TAB PO (21:15)
[2017-10-14] MEDS ORDERED: MAALOX 30 ML SUSP *UDC PO (21:15)
[2017-10-15] MEDS: ACETAMINOPHEN TAB 650MG DOSE (2X325MG) PO (10:02)
[2017-10-15] MEDS ORDERED: GLUCAGON FOR INJ 1 MG VIAL (J1610) SC (10:15)
[2017-10-15] MEDS ORDERED: DEXTROSE 50% 50 ML SYRINGE IV (10:15)
[2017-10-15] MEDS ORDERED: GLUCOSE 4 GM CHEW TABLET PO (10:15)
[2017-10-15 10:26] LABS: BEDSIDE GLUCOSE 304 MG/DL (83-110)
[2017-10-15] MEDS ORDERED: MIRALAX *UNIT DOSE* 17GM PACKET PO (10:30)
[2017-10-15] MEDS ORDERED: SIMETHICONE 80 MG CHEW TAB PO (10:30)
[2017-10-15] MEDS ORDERED: MECLIZINE 25 MG TABLET PO (10:30)
[2017-10-15] MEDS ORDERED: SENNA 8.6 MG TAB (SENOKOT) PO (10:30)
[2017-10-15] MEDS: DOCUSATE SODIUM 100 MG CAP PO (10:46)
[2017-10-15] MEDS: LISINOPRIL 20 MG TAB PO (10:47)
[2017-10-15] MEDS: MAGNESIUM OXIDE 400 MG TAB (MAG-OX) PO (10:47)
[2017-10-15] MEDS: OMEPRAZOLE 20 MG CAP PO ×2 (10:47→20:17)
[2017-10-15] MEDS: HumaLOG INSULIN (NovoLOG) PER UNIT SC ×3 (11:42→20:18)
[2017-10-15 11:57] LABS: BEDSIDE GLUCOSE 219 MG/DL (83-110)
[2017-10-15] MEDS: LEVOTHYROXINE 75MCG TABLET (0.075MG) PO (12:25)
[2017-10-15] MEDS: SITagliptin 50 MG TAB (JANUVIA) PO (12:25)
[2017-10-15] MEDS: ALLOPURINOL 100 MG TAB PO (12:25)
[2017-10-15] MEDS: GABAPENTIN 300 MG CAP PO ×2 (15:59→20:17)
[2017-10-15] MEDS: DULoxetine 30 MG CAP (CYMBALTA) PO (15:59)
[2017-10-15 17:18] LABS: BEDSIDE GLUCOSE 191 MG/DL (83-110)
[2017-10-15] MEDS: PRAVASTATIN 20 MG TAB PO (20:17)
[2017-10-15] MEDS: LEVEMIR (INSULIN DETEMIR) 1 UNITS/0.01ML SC (20:18)
[2017-10-15 20:23] LABS: BEDSIDE GLUCOSE 240 MG/DL (83-110)
[2017-10-16] MEDS: LEVOTHYROXINE 75MCG TABLET (0.075MG) PO (06:10)
[2017-10-16] MEDS: HumaLOG INSULIN (NovoLOG) PER UNIT SC ×4 (06:26→20:39)
[2017-10-16 06:30] LABS: BEDSIDE GLUCOSE 98 MG/DL (83-110)
[2017-10-16] MEDS: LISINOPRIL 20 MG TAB PO (10:15)
[2017-10-16] MEDS: DOCUSATE SODIUM 100 MG CAP PO (10:15)
[2017-10-16] MEDS: ALLOPURINOL 100 MG TAB PO (10:15)
[2017-10-16] MEDS: GABAPENTIN 300 MG CAP PO ×3 (10:15→20:40)
[2017-10-16] MEDS: DULoxetine 30 MG CAP (CYMBALTA) PO (10:15)
[2017-10-16] MEDS: SITagliptin 50 MG TAB (JANUVIA) PO (10:19)
[2017-10-16] MEDS: MAGNESIUM OXIDE 400 MG TAB (MAG-OX) PO (10:19)
[2017-10-16] MEDS: OMEPRAZOLE 20 MG CAP PO ×2 (10:19→20:40)
[2017-10-16 12:25] LABS: BEDSIDE GLUCOSE 171 MG/DL (83-110)
[2017-10-16] MEDS: MOM 30ML SUSPENSION UDC PO (15:54)
[2017-10-16 17:42] LABS: BEDSIDE GLUCOSE 185 MG/DL (83-110)
[2017-10-16] MEDS: LEVEMIR (INSULIN DETEMIR) 1 UNITS/0.01ML SC (20:40)
[2017-10-16] MEDS: PRAVASTATIN 20 MG TAB PO (20:41)
[2017-10-16 20:46] LABS: BEDSIDE GLUCOSE 284 MG/DL (83-110)
[2017-10-17] MEDS: LEVOTHYROXINE 75MCG TABLET (0.075MG) PO (06:10)
[2017-10-17] MEDS: HumaLOG INSULIN (NovoLOG) PER UNIT SC ×3 (06:46→17:30)
[2017-10-17 06:52] LABS: BEDSIDE GLUCOSE 58 MG/DL (83-110)
[2017-10-17 07:07] LABS: BEDSIDE GLUCOSE 75 MG/DL (83-110)
[2017-10-17] MEDS: LISINOPRIL 20 MG TAB PO (09:27)
[2017-10-17] MEDS: MAGNESIUM OXIDE 400 MG TAB (MAG-OX) PO (09:27)
[2017-10-17] MEDS: ALLOPURINOL 100 MG TAB PO (09:27)
[2017-10-17] MEDS: DULoxetine 30 MG CAP (CYMBALTA) PO (09:27)
[2017-10-17] MEDS: OMEPRAZOLE 20 MG CAP PO (09:27)
[2017-10-17] MEDS: SITagliptin 50 MG TAB (JANUVIA) PO (09:27)
[2017-10-17] MEDS: DOCUSATE SODIUM 100 MG CAP PO (09:27)
[2017-10-17] MEDS: GABAPENTIN 300 MG CAP PO ×2 (09:27→16:20)
[2017-10-17] MEDS: ACETAMINOPHEN TAB 650MG DOSE (2X325MG) PO (09:39)
[2017-10-17 12:23] LABS: BEDSIDE GLUCOSE 178 MG/DL (83-110)
[2017-10-17] MEDS: MOM 30ML SUSPENSION UDC PO (16:19)
== END 2017-10-17 18:45 | disposition home or self-care (01) | DRG 881 ==
LOC: M PSY 23:55 → M ED 20:01 → M ED INP 21:07
PROVIDERS: Psychiatry & Neurology Psychiatry
DX: F32.9 Major depressive disorder, single episode, unspecified (principal); R45.851 Suicidal ideations; Z79.4 Long term (current) use of insulin; Z79.899 Other long term (current) drug therapy; Z88.6 Allergy status to analgesic agent; K57.30 Diverticulosis of large intestine without perforation or abscess without bleeding; M10.9 Gout, unspecified; K21.9 Gastro-esophageal reflux disease without esophagitis; E11.9 Type 2 diabetes mellitus without complications; M19.90 Unspecified osteoarthritis, unspecified site; E78.5 Hyperlipidemia, unspecified; E03.9 Hypothyroidism, unspecified; J44.9 Chronic obstructive pulmonary disease, unspecified; F41.9 Anxiety disorder, unspecified; F03.90 Unspecified dementia, unspecified severity, without behavioral disturbance, psychotic disturbance, mood disturbance, and anxiety; K74.69 Other cirrhosis of liver; Z87.891 Personal history of nicotine dependence

== ENCOUNTER 2017-10-28 10:16 | Emergency (ER) | payer OTHER, MEDICARE ==
[2017-10-28] MEDS: FLEET OIL RETENTION ENEMA PR (12:17)
== END 2017-10-28 14:46 | disposition home or self-care (01) ==
LOC: M ED 10:16
DX: K56.41 Fecal impaction (principal); E11.9 Type 2 diabetes mellitus without complications; J44.9 Chronic obstructive pulmonary disease, unspecified; K21.9 Gastro-esophageal reflux disease without esophagitis; K74.60 Unspecified cirrhosis of liver; E07.9 Disorder of thyroid, unspecified; F95.8 Other tic disorders; K58.9 Irritable bowel syndrome, unspecified; Z79.4 Long term (current) use of insulin; Z79.890 Hormone replacement therapy; Z79.899 Other long term (current) drug therapy; Z88.8 Allergy status to other drugs, medicaments and biological substances; Z98.890 Other specified postprocedural states; Z87.891 Personal history of nicotine dependence
CPT/HCPCS: 74018

== ENCOUNTER 2017-12-29 21:31 | Emergency (ER) | payer OTHER ==
[2017-12-29 22:05] LABS: BEDSIDE GLUCOSE 441 MG/DL (83-110)
[2017-12-29 23:21] LABS: BASO % 0.3 % (0.0-1.0); EOS # 0.2 10^3/uL (0.0-0.50); EOS % 5.6 % (0.0-3.0); HEMATOCRIT 28.7 % (42.0-52.0); HEMOGLOBIN 9.3 g/dl (13.5-17.5); IMMATURE GRANULOCYTE % 0.3 % (0-3.0); LYMPH # 1.1 10^3/uL (1.5-4.5); LYMPH % 32.8 % (24.0-44.0); MEAN CORPUSCULAR HEMOGLOBIN 28.4 pg (27.0-33.0); MEAN CORPUSCULAR HGB CONC 32.4 g/dl (32.0-36.5); MEAN CORPUSCULAR VOLUME 87.8 fl (80.0-96.0); MONO # 0.4 10^3/uL (0.0-0.8); MONO % 10.9 % (0.0-5.0); NEUTROPHILS # 1.7 10^3/uL (1.8-7.7); NEUTROPHILS % 50.1 % (36.0-66.0); PLATELET COUNT, AUTOMATED 132 10^3/uL (150-450); RED BLOOD COUNT 3.27 10^6/uL (4.30-6.10); WHITE BLOOD COUNT 3.4 10^3/uL (4.0-10.0)
[2017-12-29] MEDS: HumuLIN R (REGULAR) INSULIN (NovoLIN R) **100U/ML** PER UNIT IV (23:37)
[2017-12-29] MEDS: NS 500 ML IV (23:38)
[2017-12-29 23:39] LABS: AMMONIA 55 uMOL/L (<32)
[2017-12-29 23:43] LABS: ALBUMIN 3.3 GM/DL (3.2-5.2); ALBUMIN/GLOBULIN RATIO 1.06 (1.00-1.93); ALKALINE PHOSPHATASE 74 U/L (45-117); ALT/SGPT 34 U/L (12-78); ANION GAP 8 MEQ/L (8-16); AST/SGOT 33 U/L (7-37); BILIRUBIN,DIRECT < 0.1 MG/DL (0.0-0.2); BILIRUBIN,TOTAL 0.3 MG/DL (0.2-1.0); BLOOD UREA NITROGEN 23 MG/DL (7-18); CALCIUM LEVEL 8.4 MG/DL (8.8-10.2); CARBON DIOXIDE LEVEL 24 MEQ/L (21-32); CHLORIDE LEVEL 106 MEQ/L (98-107); CPK CREATINE PHOSPHOKINASE 213 U/L (39-308); CREATININE FOR GFR 1.18 MG/DL (0.70-1.30); GLOMERULAR FILTRATION RATE > 60.0 (>35); GLUCOSE, FASTING 367 MG/DL (70-100); POTASSIUM SERUM 4.1 MEQ/L (3.5-5.1); SODIUM LEVEL 138 MEQ/L (136-145); TOTAL PROTEIN 6.4 GM/DL (6.4-8.2); TROPONIN I < 0.02 NG/ML (< 0.10)
[2017-12-29 23:44] LABS: BEDSIDE GLUCOSE 360 MG/DL (83-110)
[2017-12-29 23:44] LABS: MB/CK RELATIVE INDEX 2.34 (< OR =4)
[2017-12-30 00:17] LABS: BEDSIDE GLUCOSE 189 MG/DL (83-110)
[2017-12-30] MEDS: LACTULOSE 20 GM/30 ML SYRUP UD PO (02:08)
== END 2017-12-30 02:20 | disposition home or self-care (01) ==
LOC: M ED 12-30 02:20
DX: E11.65 Type 2 diabetes mellitus with hyperglycemia (principal); K74.60 Unspecified cirrhosis of liver; I10 Essential (primary) hypertension; J44.9 Chronic obstructive pulmonary disease, unspecified; E78.5 Hyperlipidemia, unspecified; K21.9 Gastro-esophageal reflux disease without esophagitis; K58.9 Irritable bowel syndrome, unspecified; F10.11 Alcohol abuse, in remission; Z88.8 Allergy status to other drugs, medicaments and biological substances; Z87.891 Personal history of nicotine dependence; Z86.2 Personal history of diseases of the blood and blood-forming organs and certain disorders involving the immune mechanism
CPT/HCPCS: 82140

== ENCOUNTER 2018-01-19 22:55 | Emergency (ER) | payer OTHER ==
[2018-01-20] MEDS: MORPHINE 2 MG/ML 1ML SYRINGE (J2270) IV (00:05)
[2018-01-20 00:15] LABS: INR 1.02; PROTHROMBIN TIME 13.5 SECONDS (12.4-14.5)
[2018-01-20 00:16] LABS: PARTIAL THROMBOPLASTIN TIME 33.4 SECONDS (26.8-37.9)
[2018-01-20 00:22] LABS: BASO % 0.2 % (0.0-1.0); EOS # 0.2 10^3/uL (0.0-0.50); EOS % 4.5 % (0.0-3.0); HEMATOCRIT 28.3 % (42.0-52.0); HEMOGLOBIN 9.3 g/dl (13.5-17.5); IMMATURE GRANULOCYTE % 0.2 % (0-3.0); LYMPH # 0.8 10^3/uL (1.5-4.5); LYMPH % 17.6 % (24.0-44.0); MEAN CORPUSCULAR HEMOGLOBIN 28.4 pg (27.0-33.0); MEAN CORPUSCULAR HGB CONC 32.9 g/dl (32.0-36.5); MEAN CORPUSCULAR VOLUME 86.5 fl (80.0-96.0); MONO # 0.5 10^3/uL (0.0-0.8); MONO % 10.8 % (0.0-5.0); NEUTROPHILS # 2.8 10^3/uL (1.8-7.7); NEUTROPHILS % 66.7 % (36.0-66.0); PLATELET COUNT, AUTOMATED 148 10^3/uL (150-450); RED BLOOD COUNT 3.27 10^6/uL (4.30-6.10); RED CELL DISTRIBUTION WIDTH 14.2 % (11.5-14.5); WHITE BLOOD COUNT 4.3 10^3/uL (4.0-10.0)
[2018-01-20 00:32] LABS: ALBUMIN 3.4 GM/DL (3.2-5.2); ALKALINE PHOSPHATASE 82 U/L (45-117); ALT/SGPT 40 U/L (12-78); ANION GAP 7 MEQ/L (8-16); AST/SGOT 35 U/L (7-37); BILIRUBIN,DIRECT 0.1 MG/DL (0.0-0.2); BILIRUBIN,TOTAL 0.3 MG/DL (0.2-1.0); BLOOD UREA NITROGEN 19 MG/DL (7-18); CALCIUM LEVEL 8.5 MG/DL (8.8-10.2); CARBON DIOXIDE LEVEL 26 MEQ/L (21-32); CHLORIDE LEVEL 107 MEQ/L (98-107); CK-MB VALUE MASS 7.6 NG/ML (<3.6); CPK CREATINE PHOSPHOKINASE 361 U/L (39-308); CREATININE FOR GFR 1.26 MG/DL (0.70-1.30); GLOMERULAR FILTRATION RATE 57.5 (>35); GLUCOSE, FASTING 266 MG/DL (70-100); LIPASE 105 U/L (73-393); POTASSIUM SERUM 3.7 MEQ/L (3.5-5.1); SODIUM LEVEL 140 MEQ/L (136-145); TOTAL PROTEIN 6.5 GM/DL (6.4-8.2); TROPONIN I < 0.02 NG/ML (< 0.10)
[2018-01-20] MEDS ORDERED: ISOVUE-370 76% 100ML VIAL (Q9967) As Ordered (00:35)
[2018-01-20] MEDS ORDERED: GASTROGRAFIN SOLUTION 30ML (Q9963) As Ordered (00:47)
[2018-01-20] MEDS: GASTROGRAFIN SOLUTION 30ML PO ×3 (01:00→01:38)
== END 2018-01-20 06:51 | disposition home or self-care (01) ==
LOC: M ED 22:55
DX: K56.7 Ileus, unspecified (principal); D64.9 Anemia, unspecified; N28.1 Cyst of kidney, acquired; E11.9 Type 2 diabetes mellitus without complications; M10.9 Gout, unspecified; K57.90 Diverticulosis of intestine, part unspecified, without perforation or abscess without bleeding; K21.9 Gastro-esophageal reflux disease without esophagitis; E78.5 Hyperlipidemia, unspecified; F32.9 Major depressive disorder, single episode, unspecified; F41.9 Anxiety disorder, unspecified; J44.9 Chronic obstructive pulmonary disease, unspecified; K58.9 Irritable bowel syndrome, unspecified; G47.30 Sleep apnea, unspecified; F03.90 Unspecified dementia, unspecified severity, without behavioral disturbance, psychotic disturbance, mood disturbance, and anxiety; R14.0 Abdominal distension (gaseous); N42.89 Other specified disorders of prostate; Z87.891 Personal history of nicotine dependence; Z79.4 Long term (current) use of insulin; Z79.899 Other long term (current) drug therapy; Z88.6 Allergy status to analgesic agent
CPT/HCPCS: Q9967

== ENCOUNTER 2018-03-27 21:15 | Inpatient (IN) | payer OTHER ==
[2018-03-27 18:41] LABS: BASO % 0.3 % (0.0-1.0); EOS # 0.1 10^3/uL (0.0-0.50); HEMATOCRIT 30.8 % (42.0-52.0); HEMOGLOBIN 9.5 g/dl (13.5-17.5); IMMATURE GRANULOCYTE % 0.3 % (0-3.0); LYMPH # 0.9 10^3/uL (1.5-4.5); LYMPH % 25.4 % (24.0-44.0); MEAN CORPUSCULAR HEMOGLOBIN 27.6 pg (27.0-33.0); MEAN CORPUSCULAR HGB CONC 30.8 g/dl (32.0-36.5); MEAN CORPUSCULAR VOLUME 89.5 fl (80.0-96.0); MONO # 0.5 10^3/uL (0.0-0.8); NEUTROPHILS # 2.1 10^3/uL (1.8-7.7); PLATELET COUNT, AUTOMATED 113 10^3/uL (150-450); RED BLOOD COUNT 3.44 10^6/uL (4.30-6.10); RED CELL DISTRIBUTION WIDTH 17.2 % (11.5-14.5); WHITE BLOOD COUNT 3.6 10^3/uL (4.0-10.0)
[2018-03-27 18:45] LABS: ABG BASE EXCESS -1.4 (-2.0-2.0); ABG HCO3 22.5 MEQ/L (22.0-26.0); ABG O2 SATURATION 98.5 % (95.0-99.0); ABG PARTIAL PRESSURE CO2 34.9 mmHg (35.0-45.0); ABG PARTIAL PRESSURE O2 125.1 mmHg (75.0-100.0); ABG STANDARD HCO3 23.3 MEQ/L (22.0-26.0); ABG TOTAL CO2 23.6 MEQ/L (23.0-31.0); ABG pH (ARTERIAL) 7.428 UNITS (7.350-7.450)
[2018-03-27 18:59] LABS: LACTIC ACID SEPSIS PROTOCOL 1.6 MMOL/L (0.4-2.0)
[2018-03-27 19:05] LABS: POS COUNT POS FLAG
[2018-03-27 19:34] LABS: AMMONIA 32 uMOL/L (<32)
[2018-03-27 19:41] LABS: ALBUMIN 3.3 GM/DL (3.2-5.2); ALBUMIN/GLOBULIN RATIO 0.94 (1.00-1.93); ALKALINE PHOSPHATASE 104 U/L (45-117); ALT/SGPT 42 U/L (12-78); ANION GAP 8 MEQ/L (8-16); AST/SGOT 39 U/L (7-37); BILIRUBIN,DIRECT 0.1 MG/DL (0.0-0.2); BILIRUBIN,TOTAL 0.3 MG/DL (0.2-1.0); BLOOD UREA NITROGEN 20 MG/DL (7-18); CALCIUM LEVEL 8.4 MG/DL (8.8-10.2); CARBON DIOXIDE LEVEL 27 MEQ/L (21-32); CHLORIDE LEVEL 107 MEQ/L (98-107); CPK CREATINE PHOSPHOKINASE 252 U/L (39-308); CREATININE FOR GFR 1.32 MG/DL (0.70-1.30); GLOMERULAR FILTRATION RATE 54.5 (>35); GLUCOSE, FASTING 188 MG/DL (70-100); POTASSIUM SERUM 3.5 MEQ/L (3.5-5.1); SALICYLATE LEVEL < 1.7 MG/DL (5.0-30.0); SODIUM LEVEL 142 MEQ/L (136-145); TOTAL PROTEIN 6.8 GM/DL (6.4-8.2); TROPONIN I < 0.02 NG/ML (< 0.10)
[2018-03-27 19:47] LABS: CK-MB VALUE MASS 5.8 NG/ML (<3.6)
[2018-03-27 19:50] LABS: ACETAMINOPHEN LEVEL < 2.0 UG/ML (10.0-30.0); ETHYL ALCOHOL (ETHANOL) < 0.003 % (0.000-0.010)
[2018-03-27 20:19] LABS: KETONE, URINE AUTO RFX NEGATIVE (NEGATIVE); LEUKOCYTE ESTERASE UR AUTO RFX NEGATIVE (NEGATIVE); MUCUS, URINE RFX SMALL (NEGATIVE); NITRITE, URINE AUTO RFX NEGATIVE (NEGATIVE); RBC, URINE AUTO RFX 2 /HPF (0-3); SQUAM EPITHELIAL CELL UR AURFX 0 /HPF (0-6); WBC, URINE AUTO RFX 0 /HPF (0-3)
[2018-03-27 20:35] LABS: AMPHETAMINES LEVEL URINE NEGATIVE (NEGATIVE); BARBITURATES URINE NEGATIVE (NEGATIVE); BENZODIAZEPINES URINE NEGATIVE (NEGATIVE); CANNABINOIDS URINE NEGATIVE (NEGATIVE); COCAINE METABOLITE URINE NEGATIVE (NEGATIVE); METHADONE URINE NEGATIVE (NEGATIVE); OPIATES URINE NEGATIVE (NEGATIVE); PHENCYCLIDINE URINE NEGATIVE (NEGATIVE)
[2018-03-28] MEDS: NS 1,000 ML IV (02:30)
[2018-03-28] MEDS ORDERED: IPRATROPIUM 0.5MG/ALBUTEROL 2.5MG INH SOL UD 3ML (DUONEB)(J7620) NEB (02:30)
[2018-03-28] MEDS ORDERED: MECLIZINE 25 MG TABLET PO (02:30)
[2018-03-28] MEDS ORDERED: DEXTROSE 50% 50 ML SYRINGE IV (02:30)
[2018-03-28] MEDS ORDERED: GLUCOSE 4 GM CHEW TABLET PO (02:30)
[2018-03-28] MEDS ORDERED: GLUCAGON FOR INJ 1 MG VIAL (J1610) SC (02:30)
[2018-03-28] MEDS: amLODIPine 5 MG TAB PO (03:40)
[2018-03-28] MEDS: LEVOTHYROXINE 75MCG TABLET (0.075MG) PO (05:27)
[2018-03-28] MEDS: HEPARIN SOD (PORCINE) 5000 UNITS/ML VIAL SC ×3 (05:27→20:35)
[2018-03-28 07:12] LABS: ANION GAP 7 MEQ/L (8-16); BLOOD UREA NITROGEN 15 MG/DL (7-18); CALCIUM LEVEL 8.5 MG/DL (8.8-10.2); CARBON DIOXIDE LEVEL 29 MEQ/L (21-32); CHLORIDE LEVEL 108 MEQ/L (98-107); CREATININE FOR GFR 1.13 MG/DL (0.70-1.30); GLOMERULAR FILTRATION RATE > 60.0 (>35); GLUCOSE, FASTING 138 MG/DL (70-100); POTASSIUM SERUM 3.6 MEQ/L (3.5-5.1); SODIUM LEVEL 144 MEQ/L (136-145)
[2018-03-28 07:52] LABS: BEDSIDE GLUCOSE 140 MG/DL (83-110)
[2018-03-28] MEDS: HumaLOG INSULIN (NovoLOG) PER UNIT SC ×4 (07:56→20:23)
[2018-03-28] MEDS: LISINOPRIL 20 MG TAB PO (09:00)
[2018-03-28] MEDS: OMEPRAZOLE 20 MG CAP PO ×2 (09:00→20:34)
[2018-03-28] MEDS: ALLOPURINOL 100 MG TAB PO (09:00)
[2018-03-28] MEDS: DULoxetine 30 MG CAP (CYMBALTA) PO (09:00)
[2018-03-28] MEDS: FERROUS SULFATE 325MG TAB PO (09:00)
[2018-03-28] MEDS: DOCUSATE SODIUM 100 MG CAP PO (09:00)
[2018-03-28 12:13] LABS: BEDSIDE GLUCOSE 274 MG/DL (83-110)
[2018-03-28] MEDS: MAGNESIUM OXIDE 400 MG TAB (MAG-OX) PO (12:46)
[2018-03-28] MEDS: ACETAMINOPHEN TAB 650MG DOSE (2X325MG) PO ×2 (15:59→20:35)
[2018-03-28 16:07] LABS: BEDSIDE GLUCOSE 256 MG/DL (83-110)
[2018-03-28 16:43] LABS: BEDSIDE GLUCOSE 244 MG/DL (83-110)
[2018-03-28 20:22] LABS: BEDSIDE GLUCOSE 220 MG/DL (83-110)
[2018-03-28] MEDS: PRAVASTATIN 20 MG TAB PO (20:35)
[2018-03-28] MEDS: LEVEMIR (INSULIN DETEMIR) 1 UNITS/0.01ML SC (20:35)
[2018-03-29] MEDS: LEVOTHYROXINE 75MCG TABLET (0.075MG) PO (05:00)
[2018-03-29] MEDS: HEPARIN SOD (PORCINE) 5000 UNITS/ML VIAL SC ×3 (05:01→22:22)
[2018-03-29 06:35] LABS: BEDSIDE GLUCOSE 112 MG/DL (83-110)
[2018-03-29 09:00] LABS: HEMATOCRIT 34.2 % (42.0-52.0); HEMOGLOBIN 10.6 g/dl (13.5-17.5); MEAN CORPUSCULAR HEMOGLOBIN 27.9 pg (27.0-33.0); PLATELET COUNT, AUTOMATED 161 10^3/uL (150-450); RED CELL DISTRIBUTION WIDTH 17.2 % (11.5-14.5); WHITE BLOOD COUNT 3.9 10^3/uL (4.0-10.0)
[2018-03-29] MEDS: OMEPRAZOLE 20 MG CAP PO ×2 (09:03→22:22)
[2018-03-29] MEDS: FERROUS SULFATE 325MG TAB PO (09:03)
[2018-03-29] MEDS: DULoxetine 30 MG CAP (CYMBALTA) PO (09:03)
[2018-03-29] MEDS: ALLOPURINOL 100 MG TAB PO (09:03)
[2018-03-29] MEDS: HumaLOG INSULIN (NovoLOG) PER UNIT SC ×4 (09:03→22:23)
[2018-03-29] MEDS: DOCUSATE SODIUM 100 MG CAP PO (09:03)
[2018-03-29] MEDS: LISINOPRIL 20 MG TAB PO ×2 (09:05→09:09)
[2018-03-29 09:28] LABS: ANION GAP 11 MEQ/L (8-16); BLOOD UREA NITROGEN 16 MG/DL (7-18); CALCIUM LEVEL 8.9 MG/DL (8.8-10.2); CARBON DIOXIDE LEVEL 26 MEQ/L (21-32); CHLORIDE LEVEL 104 MEQ/L (98-107); CREATININE FOR GFR 1.35 MG/DL (0.70-1.30); GLOMERULAR FILTRATION RATE 53.1 (>35); GLUCOSE, FASTING 314 MG/DL (70-100); MAGNESIUM LEVEL 1.5 MG/DL (1.8-2.4); POTASSIUM SERUM 4.3 MEQ/L (3.5-5.1); SODIUM LEVEL 141 MEQ/L (136-145)
[2018-03-29 11:59] LABS: BEDSIDE GLUCOSE 224 MG/DL (83-110)
[2018-03-29] MEDS: MAGNESIUM OXIDE 400 MG TAB (MAG-OX) PO (12:10)
[2018-03-29 16:31] LABS: CK-MB VALUE MASS 3.6 NG/ML (<3.6); CPK CREATINE PHOSPHOKINASE 141 U/L (39-308); MB/CK RELATIVE INDEX 2.55 (< OR =4); TROPONIN I < 0.02 NG/ML (< 0.10)
[2018-03-29 16:41] LABS: BEDSIDE GLUCOSE 164 MG/DL (83-110)
[2018-03-29 20:36] LABS: BEDSIDE GLUCOSE 281 MG/DL (83-110)
[2018-03-29] MEDS: PRAVASTATIN 20 MG TAB PO (22:21)
[2018-03-29] MEDS: SENOKOT S TAB PO (22:22)
[2018-03-29] MEDS: LEVEMIR (INSULIN DETEMIR) 1 UNITS/0.01ML SC (22:23)
[2018-03-30 00:55] LABS: CK-MB VALUE MASS 3.1 NG/ML (<3.6); CPK CREATINE PHOSPHOKINASE 163 U/L (39-308); TROPONIN I < 0.02 NG/ML (< 0.10)
[2018-03-30] MEDS: HEPARIN SOD (PORCINE) 5000 UNITS/ML VIAL SC ×3 (05:43→21:52)
[2018-03-30] MEDS: LEVOTHYROXINE 75MCG TABLET (0.075MG) PO (05:43)
[2018-03-30 06:48] LABS: BEDSIDE GLUCOSE 106 MG/DL (83-110)
[2018-03-30 06:52] LABS: CK-MB VALUE MASS 2.8 NG/ML (<3.6); CPK CREATINE PHOSPHOKINASE 154 U/L (39-308); MB/CK RELATIVE INDEX 1.81 (< OR =4); TROPONIN I < 0.02 NG/ML (< 0.10)
[2018-03-30] MEDS: LISINOPRIL 20 MG TAB PO (08:06)
[2018-03-30] MEDS: HumaLOG INSULIN (NovoLOG) PER UNIT SC ×4 (08:07→21:53)
[2018-03-30] MEDS: OMEPRAZOLE 20 MG CAP PO ×2 (08:07→21:54)
[2018-03-30] MEDS: DULoxetine 30 MG CAP (CYMBALTA) PO (08:07)
[2018-03-30] MEDS: FERROUS SULFATE 325MG TAB PO (08:07)
[2018-03-30] MEDS: ALLOPURINOL 100 MG TAB PO (08:07)
[2018-03-30] MEDS: SENOKOT S TAB PO ×2 (08:07→21:00)
[2018-03-30 11:28] LABS: BEDSIDE GLUCOSE 189 MG/DL (83-110)
[2018-03-30] MEDS: MAGNESIUM OXIDE 400 MG TAB (MAG-OX) PO (12:13)
[2018-03-30 17:18] LABS: BEDSIDE GLUCOSE 327 MG/DL (83-110)
[2018-03-30 21:32] LABS: BEDSIDE GLUCOSE 274 MG/DL (83-110)
[2018-03-30] MEDS: PRAVASTATIN 20 MG TAB PO (21:53)
[2018-03-30] MEDS: LEVEMIR (INSULIN DETEMIR) 1 UNITS/0.01ML SC (21:54)
[2018-03-31] MEDS: LEVOTHYROXINE 75MCG TABLET (0.075MG) PO (06:02)
[2018-03-31] MEDS: HEPARIN SOD (PORCINE) 5000 UNITS/ML VIAL SC (06:03)
[2018-03-31 06:15] LABS: BEDSIDE GLUCOSE 204 MG/DL (83-110)
[2018-03-31] MEDS: OMEPRAZOLE 20 MG CAP PO (08:15)
[2018-03-31] MEDS: SENOKOT S TAB PO (08:15)
[2018-03-31] MEDS: DULoxetine 30 MG CAP (CYMBALTA) PO (08:15)
[2018-03-31] MEDS: FERROUS SULFATE 325MG TAB PO (08:15)
[2018-03-31] MEDS: ALLOPURINOL 100 MG TAB PO (08:15)
[2018-03-31] MEDS: HumaLOG INSULIN (NovoLOG) PER UNIT SC ×2 (08:15→12:50)
[2018-03-31] MEDS: LISINOPRIL 20 MG TAB PO (08:17)
[2018-03-31] MEDS: ACETAMINOPHEN TAB 650MG DOSE (2X325MG) PO (09:16)
[2018-03-31 11:39] LABS: BEDSIDE GLUCOSE 159 MG/DL (83-110)
[2018-03-31] MEDS: MAGNESIUM OXIDE 400 MG TAB (MAG-OX) PO (12:50)
== END 2018-03-31 14:05 | disposition home or self-care (01) | DRG 556 ==
LOC: M ED INP 21:16 → M MSPAV 03-29 14:02 → M MS4PR 03-28 14:39 → M ED 21:15
DX: R26.2 Difficulty in walking, not elsewhere classified (principal); E11.9 Type 2 diabetes mellitus without complications; I12.9 Hypertensive chronic kidney disease with stage 1 through stage 4 chronic kidney disease, or unspecified chronic kidney disease; J44.9 Chronic obstructive pulmonary disease, unspecified; M10.9 Gout, unspecified; N18.3 Chronic kidney disease, stage 3 (moderate); F03.90 Unspecified dementia, unspecified severity, without behavioral disturbance, psychotic disturbance, mood disturbance, and anxiety; E03.9 Hypothyroidism, unspecified; F41.9 Anxiety disorder, unspecified; F32.9 Major depressive disorder, single episode, unspecified; E78.5 Hyperlipidemia, unspecified; Z79.899 Other long term (current) drug therapy; Z88.6 Allergy status to analgesic agent; K21.9 Gastro-esophageal reflux disease without esophagitis; K57.30 Diverticulosis of large intestine without perforation or abscess without bleeding; M19.90 Unspecified osteoarthritis, unspecified site; D64.9 Anemia, unspecified; K74.60 Unspecified cirrhosis of liver; Z87.891 Personal history of nicotine dependence; T45.0X5A Adverse effect of antiallergic and antiemetic drugs, initial encounter

== ENCOUNTER → 2018-04-20 | Outpatient (REF) | payer OTHER ==
[2018-04-20 19:02] LABS: RETIC HEMOGLOBIN EQUIVALENT 35.4 pg (24-36); RETICULOCYTE # 53.7 10^9/L (17-77); RETICULOCYTE % 1.5 % (0.5-1.5)
[2018-04-20 19:07] LABS: FERRITIN 19 NG/ML (26-388); IRON (FE) 56 UG/DL (65-175); TOTAL IRON BINDING CAPACITY 330 UG/DL (250-450)
[2018-04-20 19:10] LABS: SLIDE REVIEW Report; SOURCE PERIPHERAL SMEAR
[2018-04-20 19:11] LABS: REASON FOR REVIEW RBC MORPHOLOGY
[2018-04-20 19:16] LABS: VITAMIN B12 LEVEL 349 PG/ML (247-911)
== END ==
LOC: M LAB REF 17:36
DX: D64.9 Anemia, unspecified (principal)
CPT/HCPCS: 83550

== ENCOUNTER 2018-04-26 17:37 | Emergency (ER) | payer OTHER ==
[2018-04-26 15:02] LABS: VENOUS BASE EXCESS -3.3 (-2.0-2.0); VENOUS HCO3 23.1 MEQ/L (23.0-27.0); VENOUS O2 SATURATION 65.9 % (60.0-80.0); VENOUS PARTIAL PRESSURE CO2 47.7 mmHg (38.0-50.0); VENOUS PARTIAL PRESSURE O2 38.8 mmHg (30.0-50.0); VENOUS PH 7.303 UNITS (7.330-7.430); VENOUS STANDARD HCO3 21.2 MEQ/L; VENOUS TOTAL CO2 24.6 MEQ/L (24.0-28.0)
[2018-04-26 15:03] LABS: EOS # 0.3 10^3/uL (0.0-0.50); EOS % 6.9 % (0.0-3.0); HEMATOCRIT 29.5 % (42.0-52.0); HEMOGLOBIN 9.6 g/dl (13.5-17.5); IMMATURE GRANULOCYTE % 0.2 % (0-3.0); LYMPH % 22.6 % (24.0-44.0); MEAN CORPUSCULAR HGB CONC 32.5 g/dl (32.0-36.5); MEAN CORPUSCULAR VOLUME 89.1 fl (80.0-96.0); MONO # 0.4 10^3/uL (0.0-0.8); MONO % 10.1 % (0.0-5.0); NEUTROPHILS # 2.6 10^3/uL (1.8-7.7); NEUTROPHILS % 60.2 % (36.0-66.0); PLATELET COUNT, AUTOMATED 144 10^3/uL (150-450); RED BLOOD COUNT 3.31 10^6/uL (4.30-6.10); RED CELL DISTRIBUTION WIDTH 17.5 % (11.5-14.5); WHITE BLOOD COUNT 4.3 10^3/uL (4.0-10.0)
[2018-04-26 15:15] LABS: INR 0.98; PROTHROMBIN TIME 13.1 SECONDS (12.1-14.4)
[2018-04-26 15:16] LABS: PARTIAL THROMBOPLASTIN TIME 30.7 SECONDS (25.4-37.6)
[2018-04-26 15:30] LABS: ANION GAP 8 MEQ/L (8-16); AST/SGOT 46 U/L (7-37); BLOOD UREA NITROGEN 19 MG/DL (7-18); CALCIUM LEVEL 8.5 MG/DL (8.8-10.2); CARBON DIOXIDE LEVEL 25 MEQ/L (21-32); CHLORIDE LEVEL 109 MEQ/L (98-107); CREATININE FOR GFR 1.32 MG/DL (0.70-1.30); GLOMERULAR FILTRATION RATE 54.5 (>35); GLUCOSE, FASTING 209 MG/DL (70-100); POTASSIUM SERUM 4.1 MEQ/L (3.5-5.1); SODIUM LEVEL 142 MEQ/L (136-145)
[2018-04-26 15:31] LABS: ALBUMIN 3.2 GM/DL (3.2-5.2); ALBUMIN/GLOBULIN RATIO 1.03 (1.00-1.93); ALKALINE PHOSPHATASE 134 U/L (45-117); ALT/SGPT 65 U/L (12-78); BILIRUBIN,DIRECT < 0.1 MG/DL (0.0-0.2); BILIRUBIN,TOTAL 0.2 MG/DL (0.2-1.0); C REACTIVE PROTEIN QUANTITATIV 1.17 MG/DL (0.00-0.30); CPK CREATINE PHOSPHOKINASE 169 U/L (39-308); LIPASE 106 U/L (73-393); TOTAL PROTEIN 6.3 GM/DL (6.4-8.2); TROPONIN I < 0.02 NG/ML (< 0.10)
[2018-04-26 15:36] LABS: CK-MB VALUE MASS 5.4 NG/ML (<3.6); MB/CK RELATIVE INDEX 3.19 (< OR =4); THYROID STIMULATING HORMONE 0.867 uIU/ML (0.358-3.740)
[~2018-04-26 17:37] MED LIST changes: -/AMLO25TA PO; -ALLO100T PO; -BACL10TA5 PO; -BISAC5TA OR; -BISAC5TA PR; -COLC0.6T34 PO; -GABA-279 PO; -GLYB5TAB5 PO; -INSUDET SC; +ISOVUE-370 76% 100ML VIAL (Q9967) As Ordered; -LEVO75TA34 PO; -LEVOTHYROID PO; -LISI40TAB PO; -MAG400TA PO; -MAGN64TASA PO; -MAPA325T3 PO; -MELO7.5T7 PO; -METFORMIN PO; -METO50TA4 PO; -NYST10PW TOP; -OMEP20CA3 PO; -PERC10TA PO; -PERCOCET OR; -PRAV40TA2 PO; -PRAVASTATIN PO; -PRED10TA2 PO; -SENO8.6T9 PO; -SERT25TA PO; -SITA50TAB PO; -SOMA350T PO; -TAMI30CA PO; -TRAMADOL PO; -ULTR50TA PO; -ZEST40TA PO; -ZOLO50TA PO; -norvasc PO; -tylenol PO
== END 2018-04-26 18:39 | disposition home or self-care (01) ==
LOC: M ED 17:37
DX: K29.70 Gastritis, unspecified, without bleeding (principal); J44.9 Chronic obstructive pulmonary disease, unspecified; E11.9 Type 2 diabetes mellitus without complications; K21.9 Gastro-esophageal reflux disease without esophagitis; E78.5 Hyperlipidemia, unspecified; K58.9 Irritable bowel syndrome, unspecified; M19.90 Unspecified osteoarthritis, unspecified site; F33.9 Major depressive disorder, recurrent, unspecified; F41.9 Anxiety disorder, unspecified; M10.9 Gout, unspecified; K74.60 Unspecified cirrhosis of liver; Z79.899 Other long term (current) drug therapy; Z79.4 Long term (current) use of insulin; Z88.8 Allergy status to other drugs, medicaments and biological substances; Z87.891 Personal history of nicotine dependence
CPT/HCPCS: Q9967

== ENCOUNTER 2018-04-26 21:26 | Observation (INO) | payer OTHER ==
[2018-04-26] MEDS: SUCRALFATE 1 GM TAB PO (21:00)
[2018-04-26] MEDS: PANTOPRAZOLE 40MG INJ (PROTONIX) (C9113) IV (22:38)
[2018-04-26] MEDS: GI COCKTAIL 50ML BTL(HYOSCYAMINE/MAALOX/LIDOCAINE VISCOUS)(1:3:1) PO (22:38)
[2018-04-26] MEDS: SIMETHICONE 80 MG CHEW TAB PO (23:45)
[2018-04-27] MEDS ORDERED: ONDANSETRON 4MG/2ML VIAL (J2405) IV (00:15)
[2018-04-27] MEDS: NS 500 ML IV (00:30)
[2018-04-27] MEDS ORDERED: ALBUTEROL 90 MCG/ACT 8GM HFA INHALER INH (00:45)
[2018-04-27] MEDS ORDERED: GLUCOSE 4 GM CHEW TABLET PO (01:00)
[2018-04-27] MEDS ORDERED: DEXTROSE 50% 50 ML SYRINGE IV (01:00)
[2018-04-27] MEDS ORDERED: GLUCAGON FOR INJ 1 MG VIAL (J1610) SC (01:00)
[2018-04-27 01:43] LABS: BEDSIDE GLUCOSE 189 MG/DL (83-110)
[2018-04-27] MEDS: LEVEMIR (INSULIN DETEMIR) 1 UNITS/0.01ML SC ×3 (01:43→22:28)
[2018-04-27] MEDS: PRAVASTATIN 20 MG TAB PO ×2 (01:43→22:27)
[2018-04-27 06:03] LABS: HEMATOCRIT 29.2 % (42.0-52.0); HEMOGLOBIN 9.5 g/dl (13.5-17.5); MEAN CORPUSCULAR HEMOGLOBIN 29.1 pg (27.0-33.0); MEAN CORPUSCULAR HGB CONC 32.5 g/dl (32.0-36.5); MEAN CORPUSCULAR VOLUME 89.3 fl (80.0-96.0); PLATELET COUNT, AUTOMATED 121 10^3/uL (150-450); RED BLOOD COUNT 3.27 10^6/uL (4.30-6.10); RED CELL DISTRIBUTION WIDTH 17.6 % (11.5-14.5); WHITE BLOOD COUNT 2.8 10^3/uL (4.0-10.0)
[2018-04-27 06:29] LABS: ALBUMIN 3.1 GM/DL (3.2-5.2); ALBUMIN/GLOBULIN RATIO 1.11 (1.00-1.93); ALKALINE PHOSPHATASE 117 U/L (45-117); ALT/SGPT 52 U/L (12-78); ANION GAP 6 MEQ/L (8-16); AST/SGOT 33 U/L (7-37); BILIRUBIN,TOTAL 0.3 MG/DL (0.2-1.0); BLOOD UREA NITROGEN 20 MG/DL (7-18); CALCIUM LEVEL 8.5 MG/DL (8.8-10.2); CARBON DIOXIDE LEVEL 28 MEQ/L (21-32); CHLORIDE LEVEL 111 MEQ/L (98-107); CREATININE FOR GFR 1.27 MG/DL (0.70-1.30); GLUCOSE, FASTING 152 MG/DL (70-100); POTASSIUM SERUM 3.9 MEQ/L (3.5-5.1); SODIUM LEVEL 145 MEQ/L (136-145); TOTAL PROTEIN 5.9 GM/DL (6.4-8.2)
[2018-04-27] MEDS: LEVOTHYROXINE 75MCG TABLET (0.075MG) PO (06:35)
[2018-04-27] MEDS: SUCRALFATE 1 GM TAB PO ×4 (07:49→22:27)
[2018-04-27] MEDS: HumaLOG INSULIN (NovoLOG) PER UNIT SC ×4 (07:58→21:00)
[2018-04-27 08:05] LABS: BEDSIDE GLUCOSE 146 MG/DL (83-110)
[2018-04-27] MEDS: FERROUS SULFATE 325MG TAB PO (09:01)
[2018-04-27] MEDS: DULoxetine 30 MG CAP (CYMBALTA) PO (09:01)
[2018-04-27] MEDS: LISINOPRIL 20 MG TAB PO (09:01)
[2018-04-27] MEDS: HEPARIN SOD (PORCINE) 5000 UNITS/ML VIAL SC ×2 (09:02→22:27)
[2018-04-27] MEDS: ALLOPURINOL 100 MG TAB PO (09:02)
[2018-04-27] MEDS: MAGNESIUM OXIDE 400 MG TAB (MAG-OX) PO (12:15)
[2018-04-27] MEDS: ACETAMINOPHEN 500 MG TAB PO ×2 (12:21→22:27)
[2018-04-27 16:48] LABS: BEDSIDE GLUCOSE 205 MG/DL (83-110)
[2018-04-27] MEDS: PANTOPRAZOLE 40MG INJ (PROTONIX) (C9113) IV (22:28)
[2018-04-28] MEDS: LEVOTHYROXINE 75MCG TABLET (0.075MG) PO (05:36)
[2018-04-28 06:56] LABS: HEMATOCRIT 30.8 % (42.0-52.0); HEMOGLOBIN 9.8 g/dl (13.5-17.5); MEAN CORPUSCULAR HEMOGLOBIN 28.6 pg (27.0-33.0); MEAN CORPUSCULAR HGB CONC 31.8 g/dl (32.0-36.5); MEAN CORPUSCULAR VOLUME 89.8 fl (80.0-96.0); PLATELET COUNT, AUTOMATED 139 10^3/uL (150-450); RED BLOOD COUNT 3.43 10^6/uL (4.30-6.10); RED CELL DISTRIBUTION WIDTH 17.7 % (11.5-14.5)
[2018-04-28 07:15] LABS: ALBUMIN 3.2 GM/DL (3.2-5.2); ALBUMIN/GLOBULIN RATIO 0.94 (1.00-1.93); ALKALINE PHOSPHATASE 127 U/L (45-117); ALT/SGPT 49 U/L (12-78); ANION GAP 8 MEQ/L (8-16); AST/SGOT 32 U/L (7-37); BILIRUBIN,TOTAL 0.2 MG/DL (0.2-1.0); BLOOD UREA NITROGEN 21 MG/DL (7-18); CARBON DIOXIDE LEVEL 25 MEQ/L (21-32); CHLORIDE LEVEL 109 MEQ/L (98-107); CREATININE FOR GFR 1.37 MG/DL (0.70-1.30); GLOMERULAR FILTRATION RATE 52.2 (>35); GLUCOSE, FASTING 211 MG/DL (70-100); POTASSIUM SERUM 4.1 MEQ/L (3.5-5.1); SODIUM LEVEL 142 MEQ/L (136-145); TOTAL PROTEIN 6.6 GM/DL (6.4-8.2)
[2018-04-28] MEDS: ALLOPURINOL 100 MG TAB PO (08:00)
[2018-04-28] MEDS: FERROUS SULFATE 325MG TAB PO ×2 (08:00→08:11)
[2018-04-28] MEDS: HumaLOG INSULIN (NovoLOG) PER UNIT SC ×2 (08:00→12:30)
[2018-04-28] MEDS: LEVEMIR (INSULIN DETEMIR) 1 UNITS/0.01ML SC (08:00)
[2018-04-28] MEDS: SUCRALFATE 1 GM TAB PO ×2 (08:00→12:37)
[2018-04-28] MEDS: LISINOPRIL 20 MG TAB PO (08:00)
[2018-04-28] MEDS: HEPARIN SOD (PORCINE) 5000 UNITS/ML VIAL SC (08:01)
[2018-04-28] MEDS: DULoxetine 30 MG CAP (CYMBALTA) PO (08:01)
[2018-04-28] MEDS: MIRALAX *UNIT DOSE* 17GM PACKET PO (09:26)
[2018-04-28] MEDS: DOCUSATE SODIUM 100 MG CAP PO (09:26)
[2018-04-28] MEDS: MAGNESIUM OXIDE 400 MG TAB (MAG-OX) PO (12:38)
[2018-04-28 13:46] LABS: BEDSIDE GLUCOSE 118 MG/DL (83-110)
== END 2018-04-28 13:30 | disposition home or self-care (01) ==
LOC: M ED INP 04-27 00:15 → M MS5PR 04-27 13:05 → M ED 21:26
PROVIDERS: Internal Medicine
DX: K29.50 Unspecified chronic gastritis without bleeding (principal); F03.90 Unspecified dementia, unspecified severity, without behavioral disturbance, psychotic disturbance, mood disturbance, and anxiety; J44.9 Chronic obstructive pulmonary disease, unspecified; E11.9 Type 2 diabetes mellitus without complications; E03.9 Hypothyroidism, unspecified; K21.9 Gastro-esophageal reflux disease without esophagitis; K58.8 Other irritable bowel syndrome; F32.9 Major depressive disorder, single episode, unspecified; F41.9 Anxiety disorder, unspecified; M10.9 Gout, unspecified; D64.9 Anemia, unspecified; Z79.4 Long term (current) use of insulin; Z79.899 Other long term (current) drug therapy; Z88.8 Allergy status to other drugs, medicaments and biological substances; E78.4 Other hyperlipidemia; M54.2 Cervicalgia; K57.90 Diverticulosis of intestine, part unspecified, without perforation or abscess without bleeding; K74.69 Other cirrhosis of liver
CPT/HCPCS: C9113

== ENCOUNTER 2018-05-15 22:28 | Emergency (ER) | payer OTHER ==
[2018-05-15] MEDS: GI COCKTAIL 50ML BTL(HYOSCYAMINE/MAALOX/LIDOCAINE VISCOUS)(1:3:1) PO (23:30)
[2018-05-16 00:29] LABS: BASO % 0.3 % (0.0-1.0); EOS # 0.2 10^3/uL (0.0-0.50); HEMATOCRIT 27.7 % (42.0-52.0); HEMOGLOBIN 9.1 g/dl (13.5-17.5); IMMATURE GRANULOCYTE % 0.6 % (0-3.0); LYMPH # 0.9 10^3/uL (1.5-4.5); LYMPH % 27.2 % (24.0-44.0); MEAN CORPUSCULAR HEMOGLOBIN 29.3 pg (27.0-33.0); MEAN CORPUSCULAR HGB CONC 32.9 g/dl (32.0-36.5); MEAN CORPUSCULAR VOLUME 89.1 fl (80.0-96.0); MONO # 0.5 10^3/uL (0.0-0.8); MONO % 14.9 % (0.0-5.0); NEUTROPHILS # 1.8 10^3/uL (1.8-7.7); PLATELET COUNT, AUTOMATED 140 10^3/uL (150-450); RED BLOOD COUNT 3.11 10^6/uL (4.30-6.10); RED CELL DISTRIBUTION WIDTH 16.8 % (11.5-14.5); WHITE BLOOD COUNT 3.4 10^3/uL (4.0-10.0)
[2018-05-16 00:52] LABS: ANION GAP 7 MEQ/L (8-16); BLOOD UREA NITROGEN 20 MG/DL (7-18); CALCIUM LEVEL 8.5 MG/DL (8.8-10.2); CARBON DIOXIDE LEVEL 26 MEQ/L (21-32); CHLORIDE LEVEL 106 MEQ/L (98-107); CPK CREATINE PHOSPHOKINASE 329 U/L (39-308); CREATININE FOR GFR 1.29 MG/DL (0.70-1.30); GLUCOSE, FASTING 248 MG/DL (70-100); MB/CK RELATIVE INDEX 2.43 (< OR =4); POTASSIUM SERUM 3.9 MEQ/L (3.5-5.1); SODIUM LEVEL 139 MEQ/L (136-145); TROPONIN I < 0.02 NG/ML (< 0.10)
[2018-05-16 05:59] LABS: CPK CREATINE PHOSPHOKINASE 235 U/L (39-308); MB/CK RELATIVE INDEX 2.43 (< OR =4); TROPONIN I < 0.02 NG/ML (< 0.10)
== END 2018-05-16 06:55 | disposition home or self-care (01) ==
LOC: M ED 05-16 06:55
DX: K21.9 Gastro-esophageal reflux disease without esophagitis (principal); D61.818 Other pancytopenia; Z79.899 Other long term (current) drug therapy; Z79.4 Long term (current) use of insulin; Z88.6 Allergy status to analgesic agent

== ENCOUNTER 2018-05-17 14:04 | Inpatient (IN) | payer OTHER ==
[2018-05-17 15:54] LABS: KETONE, URINE AUTO RFX NEGATIVE (NEGATIVE); LEUKOCYTE ESTERASE UR AUTO RFX NEGATIVE (NEGATIVE); MUCUS, URINE RFX SMALL (NEGATIVE); NITRITE, URINE AUTO RFX NEGATIVE (NEGATIVE); RBC, URINE AUTO RFX 2 /HPF (0-3); SPECIFIC GRAVITY UR AUTO RFX 1.003 (1.002-1.035); SQUAM EPITHELIAL CELL UR AURFX 0 /HPF (0-6); WBC, URINE AUTO RFX 0 /HPF (0-3)
[2018-05-17] MEDS: TETANUS/DIPHTHERIA TOX ADSORB ADULT 0.5ML SYR/VIAL (90714) IM (16:28)
[2018-05-17 16:29] LABS: ALBUMIN 3.5 GM/DL (3.2-5.2); ALBUMIN/GLOBULIN RATIO 1.25 (1.00-1.93); ALKALINE PHOSPHATASE 135 U/L (45-117); ALT/SGPT 51 U/L (12-78); ANION GAP 8 MEQ/L (8-16); AST/SGOT 49 U/L (7-37); BILIRUBIN,DIRECT < 0.1 MG/DL (0.0-0.2); BILIRUBIN,TOTAL 0.2 MG/DL (0.2-1.0); BLOOD UREA NITROGEN 15 MG/DL (7-18); CALCIUM LEVEL 8.9 MG/DL (8.8-10.2); CARBON DIOXIDE LEVEL 26 MEQ/L (21-32); CHLORIDE LEVEL 107 MEQ/L (98-107); CREATININE FOR GFR 1.22 MG/DL (0.70-1.30); GLOMERULAR FILTRATION RATE 59.7 (>35); GLUCOSE, FASTING 189 MG/DL (70-100); LIPASE 110 U/L (73-393); POTASSIUM SERUM 3.8 MEQ/L (3.5-5.1); SODIUM LEVEL 141 MEQ/L (136-145); TOTAL PROTEIN 6.3 GM/DL (6.4-8.2)
[2018-05-17 17:25] LABS: BEDSIDE GLUCOSE 154 MG/DL (83-110)
[2018-05-17 17:34] LABS: HEMATOCRIT 29.1 % (42.0-52.0); HEMOGLOBIN 9.2 g/dl (13.5-17.5); MEAN CORPUSCULAR HEMOGLOBIN 28.9 pg (27.0-33.0); MEAN CORPUSCULAR HGB CONC 31.6 g/dl (32.0-36.5); MEAN CORPUSCULAR VOLUME 91.5 fl (80.0-96.0); PLATELET COUNT, AUTOMATED 135 10^3/uL (150-450); RED BLOOD COUNT 3.18 10^6/uL (4.30-6.10); RED CELL DISTRIBUTION WIDTH 16.7 % (11.5-14.5); WHITE BLOOD COUNT 3.4 10^3/uL (4.0-10.0)
[2018-05-17] MEDS: SUCRALFATE 1 GM TAB PO (17:37)
[2018-05-17 17:45] LABS: CPK CREATINE PHOSPHOKINASE 215 U/L (39-308); MB/CK RELATIVE INDEX 2.79 (< OR =4); TROPONIN I < 0.02 NG/ML (< 0.10)
[2018-05-17] MEDS ORDERED: ALBUTEROL SULFATE 2.5 MG/0.5 ML INH NEB SOLN NEB (21:45)
[2018-05-17] MEDS ORDERED: GLUCAGON FOR INJ 1 MG VIAL (J1610) SC (21:45)
[2018-05-17] MEDS ORDERED: GLUCOSE 4 GM CHEW TABLET PO (21:45)
[2018-05-17] MEDS ORDERED: DEXTROSE 50% 50 ML SYRINGE IV (21:45)
[2018-05-17] MEDS: HEPARIN SOD (PORCINE) 5000 UNITS/ML VIAL SC (22:00)
[2018-05-18] MEDS: ACETAMINOPHEN TAB 650MG DOSE (2X325MG) PO (02:00)
[2018-05-18] MEDS: LEVOTHYROXINE 75MCG TABLET (0.075MG) PO (05:49)
[2018-05-18] MEDS: HEPARIN SOD (PORCINE) 5000 UNITS/ML VIAL SC ×3 (05:49→21:07)
[2018-05-18 06:41] LABS: HEMATOCRIT 30.4 % (42.0-52.0); HEMOGLOBIN 9.7 g/dl (13.5-17.5); MEAN CORPUSCULAR HEMOGLOBIN 28.9 pg (27.0-33.0); MEAN CORPUSCULAR HGB CONC 31.9 g/dl (32.0-36.5); MEAN CORPUSCULAR VOLUME 90.5 fl (80.0-96.0); PLATELET COUNT, AUTOMATED 141 10^3/uL (150-450); RED BLOOD COUNT 3.36 10^6/uL (4.30-6.10); RED CELL DISTRIBUTION WIDTH 16.7 % (11.5-14.5); WHITE BLOOD COUNT 2.9 10^3/uL (4.0-10.0)
[2018-05-18 07:17] LABS: ANION GAP 6 MEQ/L (8-16); BLOOD UREA NITROGEN 15 MG/DL (7-18); CALCIUM LEVEL 8.6 MG/DL (8.8-10.2); CARBON DIOXIDE LEVEL 28 MEQ/L (21-32); CHLORIDE LEVEL 110 MEQ/L (98-107); CREATININE FOR GFR 1.15 MG/DL (0.70-1.30); GLOMERULAR FILTRATION RATE > 60.0 (>35); GLUCOSE, FASTING 197 MG/DL (70-100); SODIUM LEVEL 144 MEQ/L (136-145)
[2018-05-18] MEDS: FERROUS SULFATE 325MG TAB PO (08:41)
[2018-05-18] MEDS: OMEPRAZOLE 20 MG CAP PO ×2 (08:41→21:06)
[2018-05-18] MEDS: LISINOPRIL 20 MG TAB PO (08:41)
[2018-05-18] MEDS: ALLOPURINOL 100 MG TAB PO (08:41)
[2018-05-18] MEDS: DOCUSATE SODIUM 100 MG CAP PO (08:41)
[2018-05-18] MEDS: DULoxetine 30 MG CAP (CYMBALTA) PO (08:41)
[2018-05-18] MEDS: HumaLOG INSULIN (NovoLOG) PER UNIT SC ×3 (08:42→17:39)
[2018-05-18] MEDS: LEVEMIR (INSULIN DETEMIR) 1 UNITS/0.01ML SC ×2 (08:42→21:07)
[2018-05-18] MEDS: SUCRALFATE 1 GM TAB PO ×4 (08:43→21:06)
[2018-05-18] MEDS: MAGNESIUM OXIDE 400 MG TAB (MAG-OX) PO (11:48)
[2018-05-18 17:22] LABS: BEDSIDE GLUCOSE 214 MG/DL (83-110)
[2018-05-18 17:23] LABS: BEDSIDE GLUCOSE 201 MG/DL (83-110)
[2018-05-18 17:23] LABS: BEDSIDE GLUCOSE 178 MG/DL (83-110)
[2018-05-18 17:23] LABS: BEDSIDE GLUCOSE 328 MG/DL (83-110)
[2018-05-18] MEDS: PRAVASTATIN 20 MG TAB PO (21:06)
[2018-05-19] MEDS: LEVOTHYROXINE 75MCG TABLET (0.075MG) PO (05:44)
[2018-05-19] MEDS: HEPARIN SOD (PORCINE) 5000 UNITS/ML VIAL SC (05:44)
[2018-05-19] MEDS: ACETAMINOPHEN TAB 650MG DOSE (2X325MG) PO (06:19)
[2018-05-19 06:40] LABS: HEMOGLOBIN 10.1 g/dl (13.5-17.5); MEAN CORPUSCULAR HEMOGLOBIN 29.1 pg (27.0-33.0); MEAN CORPUSCULAR HGB CONC 32.6 g/dl (32.0-36.5); MEAN CORPUSCULAR VOLUME 89.3 fl (80.0-96.0); PLATELET COUNT, AUTOMATED 133 10^3/uL (150-450); RED BLOOD COUNT 3.47 10^6/uL (4.30-6.10); RED CELL DISTRIBUTION WIDTH 16.4 % (11.5-14.5); WHITE BLOOD COUNT 3.5 10^3/uL (4.0-10.0)
[2018-05-19 06:56] LABS: ANION GAP 7 MEQ/L (8-16); BLOOD UREA NITROGEN 16 MG/DL (7-18); CARBON DIOXIDE LEVEL 27 MEQ/L (21-32); CHLORIDE LEVEL 108 MEQ/L (98-107); CREATININE FOR GFR 1.19 MG/DL (0.70-1.30); GLOMERULAR FILTRATION RATE > 60.0 (>35); GLUCOSE, FASTING 154 MG/DL (70-100); SODIUM LEVEL 142 MEQ/L (136-145)
[2018-05-19] MEDS: LEVEMIR (INSULIN DETEMIR) 1 UNITS/0.01ML SC (08:10)
[2018-05-19] MEDS: DOCUSATE SODIUM 100 MG CAP PO (08:11)
[2018-05-19] MEDS: OMEPRAZOLE 20 MG CAP PO (08:11)
[2018-05-19] MEDS: DULoxetine 30 MG CAP (CYMBALTA) PO (08:11)
[2018-05-19] MEDS: HumaLOG INSULIN (NovoLOG) PER UNIT SC (08:11)
[2018-05-19] MEDS: SUCRALFATE 1 GM TAB PO (08:11)
[2018-05-19] MEDS: LISINOPRIL 20 MG TAB PO (08:11)
[2018-05-19] MEDS: ALLOPURINOL 100 MG TAB PO (08:11)
[2018-05-19] MEDS: FERROUS SULFATE 325MG TAB PO (08:11)
[2018-05-19] MEDS: INFLUENZA VIRUS VACCINE HIGH DOSE 0.5 ML SYRINGE (90662) IM (10:48)
[2018-05-19 12:14] LABS: BEDSIDE GLUCOSE 276 MG/DL (83-110)
== END 2018-05-19 10:54 | disposition home or self-care (01) | DRG 93 ==
LOC: M MSPAV 23:50 → M ED 14:04 → M ED INP 21:15
DX: R29.6 Repeated falls (principal); Z74.1 Need for assistance with personal care; J44.9 Chronic obstructive pulmonary disease, unspecified; F03.90 Unspecified dementia, unspecified severity, without behavioral disturbance, psychotic disturbance, mood disturbance, and anxiety; I10 Essential (primary) hypertension; E11.9 Type 2 diabetes mellitus without complications; D69.59 Other secondary thrombocytopenia; E03.9 Hypothyroidism, unspecified; F32.9 Major depressive disorder, single episode, unspecified; M10.9 Gout, unspecified; K21.9 Gastro-esophageal reflux disease without esophagitis; D64.9 Anemia, unspecified; M19.90 Unspecified osteoarthritis, unspecified site; R26.89 Other abnormalities of gait and mobility

== ENCOUNTER 2018-05-23 12:17 | Inpatient (IN) | payer MEDICARE, OTHER ==
[2018-05-23 13:00] LABS: HEMATOCRIT 30.4 % (42.0-52.0); HEMOGLOBIN 9.7 g/dl (13.5-17.5); MEAN CORPUSCULAR HEMOGLOBIN 29.3 pg (27.0-33.0); MEAN CORPUSCULAR HGB CONC 31.9 g/dl (32.0-36.5); MEAN CORPUSCULAR VOLUME 91.8 fl (80.0-96.0); PLATELET COUNT, AUTOMATED 140 10^3/uL (150-450); RED BLOOD COUNT 3.31 10^6/uL (4.30-6.10); RED CELL DISTRIBUTION WIDTH 16.4 % (11.5-14.5); WHITE BLOOD COUNT 3.4 10^3/uL (4.0-10.0)
[2018-05-23 13:37] LABS: ACETAMINOPHEN LEVEL < 2.0 UG/ML (10.0-30.0); ALBUMIN 3.2 GM/DL (3.2-5.2); ALBUMIN/GLOBULIN RATIO 1.03 (1.00-1.93); ALKALINE PHOSPHATASE 133 U/L (45-117); ALT/SGPT 47 U/L (12-78); ANION GAP 8 MEQ/L (8-16); AST/SGOT 41 U/L (7-37); BILIRUBIN,DIRECT 0.1 MG/DL (0.0-0.2); BILIRUBIN,TOTAL 0.3 MG/DL (0.2-1.0); BLOOD UREA NITROGEN 21 MG/DL (7-18); CALCIUM LEVEL 8.7 MG/DL (8.8-10.2); CARBON DIOXIDE LEVEL 25 MEQ/L (21-32); CHLORIDE LEVEL 107 MEQ/L (98-107); CREATININE FOR GFR 1.26 MG/DL (0.70-1.30); ETHYL ALCOHOL (ETHANOL) 0.004 % (0.000-0.010); GLOMERULAR FILTRATION RATE 57.5 (>35); GLUCOSE, FASTING 259 MG/DL (70-100); POTASSIUM SERUM 4.3 MEQ/L (3.5-5.1); SALICYLATE LEVEL < 1.7 MG/DL (5.0-30.0); SODIUM LEVEL 140 MEQ/L (136-145); TOTAL PROTEIN 6.3 GM/DL (6.4-8.2)
[2018-05-23 14:25] LABS: AMPHETAMINES LEVEL URINE NEGATIVE (NEGATIVE); BARBITURATES URINE NEGATIVE (NEGATIVE); BENZODIAZEPINES URINE NEGATIVE (NEGATIVE); CANNABINOIDS URINE NEGATIVE (NEGATIVE); COCAINE METABOLITE URINE NEGATIVE (NEGATIVE); METHADONE URINE NEGATIVE (NEGATIVE); OPIATES URINE NEGATIVE (NEGATIVE); PHENCYCLIDINE URINE NEGATIVE (NEGATIVE)
[2018-05-23] MEDS ORDERED: MAALOX 30 ML SUSP *UDC PO (16:45)
[2018-05-23] MEDS ORDERED: MOM 30ML SUSPENSION UDC PO (16:45)
[2018-05-23] MEDS: LEVEMIR (INSULIN DETEMIR) 1 UNITS/0.01ML SC (21:00)
[2018-05-23] MEDS ORDERED: ALBUTEROL 90 MCG/ACT 8GM HFA INHALER INH (22:00)
[2018-05-23] MEDS ORDERED: MECLIZINE 25 MG TABLET PO (22:15)
[2018-05-23] MEDS: ACETAMINOPHEN TAB 650MG DOSE (2X325MG) PO (23:32)
[2018-05-23 23:38] LABS: BEDSIDE GLUCOSE 234 MG/DL (83-110)
[2018-05-24] MEDS: LEVOTHYROXINE 75MCG TABLET (0.075MG) PO (06:08)
[2018-05-24 06:28] LABS: BEDSIDE GLUCOSE 100 MG/DL (83-110)
[2018-05-24] MEDS: SUCRALFATE 1 GM TAB PO ×4 (06:39→20:23)
[2018-05-24] MEDS: FERROUS SULFATE 325MG TAB PO (08:08)
[2018-05-24] MEDS: ALLOPURINOL 100 MG TAB PO (08:08)
[2018-05-24] MEDS: SITagliptin 50 MG TAB (JANUVIA) PO (08:08)
[2018-05-24] MEDS: DULoxetine 30 MG CAP (CYMBALTA) PO (08:09)
[2018-05-24] MEDS: MAGNESIUM OXIDE 400 MG TAB (MAG-OX) PO (08:09)
[2018-05-24] MEDS: OMEPRAZOLE 20 MG CAP PO ×2 (08:09→20:23)
[2018-05-24] MEDS: LEVEMIR (INSULIN DETEMIR) 1 UNITS/0.01ML SC ×2 (08:09→20:24)
[2018-05-24] MEDS: DOCUSATE SODIUM 100 MG CAP PO (08:09)
[2018-05-24] MEDS: LISINOPRIL 20 MG TAB PO (08:09)
[2018-05-24] MEDS ORDERED: OMEPRAZOLE 20 MG CAP PO (09:00)
[2018-05-24 20:19] LABS: BEDSIDE GLUCOSE 246 MG/DL (83-110)
[2018-05-24] MEDS: PRAVASTATIN 20 MG TAB PO (20:23)
[2018-05-25] MEDS: LEVOTHYROXINE 75MCG TABLET (0.075MG) PO (06:08)
[2018-05-25 06:16] LABS: BEDSIDE GLUCOSE 111 MG/DL (83-110)
[2018-05-25] MEDS: SUCRALFATE 1 GM TAB PO ×2 (06:58→11:54)
[2018-05-25 07:21] LABS: HEMATOCRIT 35.6 % (42.0-52.0); HEMOGLOBIN 11.3 g/dl (13.5-17.5); MEAN CORPUSCULAR HEMOGLOBIN 29.3 pg (27.0-33.0); MEAN CORPUSCULAR HGB CONC 31.7 g/dl (32.0-36.5); MEAN CORPUSCULAR VOLUME 92.2 fl (80.0-96.0); PLATELET COUNT, AUTOMATED 188 10^3/uL (150-450); RED BLOOD COUNT 3.86 10^6/uL (4.30-6.10); RED CELL DISTRIBUTION WIDTH 16.1 % (11.5-14.5); WHITE BLOOD COUNT 4.5 10^3/uL (4.0-10.0)
[2018-05-25 07:57] LABS: ALBUMIN 3.8 GM/DL (3.2-5.2); ALBUMIN/GLOBULIN RATIO 1.23 (1.00-1.93); ALKALINE PHOSPHATASE 139 U/L (45-117); ALT/SGPT 43 U/L (12-78); ANION GAP 6 MEQ/L (8-16); AST/SGOT 36 U/L (7-37); BLOOD UREA NITROGEN 23 MG/DL (7-18); CALCIUM LEVEL 9.4 MG/DL (8.8-10.2); CARBON DIOXIDE LEVEL 30 MEQ/L (21-32); CHLORIDE LEVEL 104 MEQ/L (98-107); CREATININE FOR GFR 1.33 MG/DL (0.70-1.30); GLUCOSE, FASTING 139 MG/DL (70-100); MAGNESIUM LEVEL 2.3 MG/DL (1.8-2.4); POTASSIUM SERUM 4.7 MEQ/L (3.5-5.1); SODIUM LEVEL 140 MEQ/L (136-145); TOTAL PROTEIN 6.9 GM/DL (6.4-8.2)
[2018-05-25 07:58] LABS: BILIRUBIN,TOTAL 0.5 MG/DL (0.2-1.0)
[2018-05-25] MEDS: FERROUS SULFATE 325MG TAB PO (09:00)
[2018-05-25] MEDS: MAGNESIUM OXIDE 400 MG TAB (MAG-OX) PO (09:00)
[2018-05-25] MEDS: ALLOPURINOL 100 MG TAB PO (09:00)
[2018-05-25] MEDS: DOCUSATE SODIUM 100 MG CAP PO (09:00)
[2018-05-25] MEDS: LISINOPRIL 20 MG TAB PO (09:01)
[2018-05-25] MEDS: OMEPRAZOLE 20 MG CAP PO (09:01)
[2018-05-25] MEDS: DULoxetine 30 MG CAP (CYMBALTA) PO (09:01)
[2018-05-25] MEDS: LEVEMIR (INSULIN DETEMIR) 1 UNITS/0.01ML SC (09:07)
== END 2018-05-25 14:40 | disposition home or self-care (01) | DRG 881 ==
LOC: M ED 12:17 → M ED INP 16:31 → M PSY 17:35
DX: F32.9 Major depressive disorder, single episode, unspecified (principal); F60.2 Antisocial personality disorder; Z63.4 Disappearance and death of family member; J44.9 Chronic obstructive pulmonary disease, unspecified; F03.90 Unspecified dementia, unspecified severity, without behavioral disturbance, psychotic disturbance, mood disturbance, and anxiety; E03.9 Hypothyroidism, unspecified; E11.9 Type 2 diabetes mellitus without complications; M10.9 Gout, unspecified; M19.90 Unspecified osteoarthritis, unspecified site; I10 Essential (primary) hypertension; Z79.899 Other long term (current) drug therapy; Z79.4 Long term (current) use of insulin; Z88.6 Allergy status to analgesic agent; K21.9 Gastro-esophageal reflux disease without esophagitis; E78.5 Hyperlipidemia, unspecified; D64.9 Anemia, unspecified; R26.89 Other abnormalities of gait and mobility; K59.00 Constipation, unspecified

== ENCOUNTER 2018-05-29 15:12 | Emergency (ER) | payer OTHER, MEDICARE | END 2018-05-29 17:40 | disposition home or self-care (01) | LOC: M ED 15:12 | DX: S30.0XXA Contusion of lower back and pelvis, initial encounter (principal); S40.012A Contusion of left shoulder, initial encounter; S80.02XA Contusion of left knee, initial encounter; S70.02XA Contusion of left hip, initial encounter; W19.XXXA Unspecified fall, initial encounter; Y92.099 Unspecified place in other non-institutional residence as the place of occurrence of the external cause; Y93.9 Activity, unspecified; Y99.9 Unspecified external cause status; M75.92 Shoulder lesion, unspecified, left shoulder; M85.422 Solitary bone cyst, left humerus; M47.817 Spondylosis without myelopathy or radiculopathy, lumbosacral region; M11.262 Other chondrocalcinosis, left knee; I51.9 Heart disease, unspecified; E11.9 Type 2 diabetes mellitus without complications; Z79.4 Long term (current) use of insulin; Z79.899 Other long term (current) drug therapy; Z88.6 Allergy status to analgesic agent ==

== ENCOUNTER 2018-05-31 12:33 | Inpatient (IN) | payer OTHER ==
[2018-05-31 13:10] LABS: VENOUS HCO3 22.5 MEQ/L (23.0-27.0); VENOUS PARTIAL PRESSURE CO2 41.9 mmHg (38.0-50.0); VENOUS PH 7.347 UNITS (7.330-7.430); VENOUS STANDARD HCO3 21.6 MEQ/L; VENOUS TOTAL CO2 23.7 MEQ/L (24.0-28.0)
[2018-05-31 13:11] LABS: BASO % 0.3 % (0.0-1.0); EOS # 0.2 10^3/uL (0.0-0.50); HEMOGLOBIN 9.6 g/dl (13.5-17.5); IMMATURE GRANULOCYTE % 0.6 % (0-3.0); LYMPH # 0.8 10^3/uL (1.5-4.5); LYMPH % 25.6 % (24.0-44.0); MEAN CORPUSCULAR HEMOGLOBIN 29.4 pg (27.0-33.0); MEAN CORPUSCULAR VOLUME 91.7 fl (80.0-96.0); MONO # 0.4 10^3/uL (0.0-0.8); MONO % 12.2 % (0.0-5.0); NEUTROPHILS # 1.8 10^3/uL (1.8-7.7); NEUTROPHILS % 56.3 % (36.0-66.0); PLATELET COUNT, AUTOMATED 142 10^3/uL (150-450); RED BLOOD COUNT 3.27 10^6/uL (4.30-6.10); RED CELL DISTRIBUTION WIDTH 15.4 % (11.5-14.5); WHITE BLOOD COUNT 3.2 10^3/uL (4.0-10.0)
[2018-05-31] MEDS: CHARCOAL ACTIVATED LIQUID 25 GM/120 ML BTL PO (13:12)
[2018-05-31] MEDS: NS 1,000 ML IV (13:13)
[2018-05-31 13:38] LABS: OSMOLALITY SERUM 305 MOSM/KG (280-301)
[2018-05-31 13:58] LABS: LACTIC ACID SEPSIS PROTOCOL 1.7 MMOL/L (0.4-2.0)
[2018-05-31 14:12] LABS: BEDSIDE GLUCOSE 378 MG/DL (83-110)
[2018-05-31 15:10] LABS: ACETAMINOPHEN LEVEL 74.1 UG/ML (10.0-30.0); ALBUMIN 3.3 GM/DL (3.2-5.2); ALBUMIN/GLOBULIN RATIO 1.22 (1.00-1.93); ALKALINE PHOSPHATASE 113 U/L (45-117); ALT/SGPT 37 U/L (12-78); ANION GAP 8 MEQ/L (8-16); AST/SGOT 29 U/L (7-37); BILIRUBIN,DIRECT < 0.1 MG/DL (0.0-0.2); BILIRUBIN,TOTAL 0.2 MG/DL (0.2-1.0); BLOOD UREA NITROGEN 23 MG/DL (7-18); CALCIUM LEVEL 8.6 MG/DL (8.8-10.2); CARBON DIOXIDE LEVEL 25 MEQ/L (21-32); CHLORIDE LEVEL 107 MEQ/L (98-107); CPK CREATINE PHOSPHOKINASE 169 U/L (39-308); CREATININE FOR GFR 1.36 MG/DL (0.70-1.30); ETHYL ALCOHOL (ETHANOL) < 0.003 % (0.000-0.010); GLOMERULAR FILTRATION RATE 52.6 (>35); GLUCOSE, FASTING 382 MG/DL (70-100); POTASSIUM SERUM 4.3 MEQ/L (3.5-5.1); SALICYLATE LEVEL < 1.7 MG/DL (5.0-30.0); SODIUM LEVEL 140 MEQ/L (136-145)
[2018-05-31 15:26] LABS: AMPHETAMINES LEVEL URINE NEGATIVE (NEGATIVE); BARBITURATES URINE NEGATIVE (NEGATIVE); BENZODIAZEPINES URINE NEGATIVE (NEGATIVE); CANNABINOIDS URINE NEGATIVE (NEGATIVE); COCAINE METABOLITE URINE NEGATIVE (NEGATIVE); METHADONE URINE NEGATIVE (NEGATIVE); OPIATES URINE NEGATIVE (NEGATIVE); PHENCYCLIDINE URINE NEGATIVE (NEGATIVE)
[2018-05-31 15:27] LABS: KETONE, URINE AUTO RFX NEGATIVE (NEGATIVE); LEUKOCYTE ESTERASE UR AUTO RFX NEGATIVE (NEGATIVE); MUCUS, URINE RFX SMALL (NEGATIVE); NITRITE, URINE AUTO RFX NEGATIVE (NEGATIVE); RBC, URINE AUTO RFX 0 /HPF (0-3); SQUAM EPITHELIAL CELL UR AURFX 0 /HPF (0-6); WBC, URINE AUTO RFX 1 /HPF (0-3)
[2018-05-31 17:23] LABS: ACETAMINOPHEN LEVEL 25.9 UG/ML (10.0-30.0)
[2018-06-01] MEDS ORDERED: PRAVASTATIN 20 MG TAB PO (01:22)
[2018-06-01] MEDS ORDERED: OMEPRAZOLE 20 MG CAP PO (01:23)
[2018-06-01] MEDS ORDERED: LEVEMIR (INSULIN DETEMIR) 1 UNITS/0.01ML SC (01:25)
[2018-06-01] MEDS: LEVOTHYROXINE 75MCG TABLET (0.075MG) PO (06:16)
[2018-06-01] MEDS: SUCRALFATE 1 GM TAB PO ×4 (06:40→21:21)
[2018-06-01] MEDS: OMEPRAZOLE 20 MG CAP PO ×2 (08:34→21:21)
[2018-06-01] MEDS: SITagliptin 50 MG TAB (JANUVIA) PO (08:34)
[2018-06-01] MEDS: LISINOPRIL 20 MG TAB PO (08:34)
[2018-06-01] MEDS: DULoxetine 30 MG CAP (CYMBALTA) PO (08:34)
[2018-06-01] MEDS: ALLOPURINOL 100 MG TAB PO (08:34)
[2018-06-01] MEDS: TRIAMCINOLONE ACET 0.1% CREAM 80 GM TOP ×2 (08:35→21:22)
[2018-06-01] MEDS: LEVEMIR (INSULIN DETEMIR) 1 UNITS/0.01ML SC ×2 (08:35→21:21)
[2018-06-01] MEDS: MAGNESIUM OXIDE 400 MG TAB (MAG-OX) PO (11:17)
[2018-06-01] MEDS: DOCUSATE SODIUM 100 MG CAP PO (11:17)
[2018-06-01] MEDS: FERROUS SULFATE 325MG TAB PO (11:17)
[2018-06-01] MEDS: LOTRISONE CREAM 15 GM (BETAMETH/CLOTRIMAZOLE) TOP ×2 (15:25→21:22)
[2018-06-01 16:39] LABS: BEDSIDE GLUCOSE 294 MG/DL (83-110)
[2018-06-01] MEDS: PRAVASTATIN 20 MG TAB PO (21:21)
[2018-06-02] MEDS: LEVOTHYROXINE 75MCG TABLET (0.075MG) PO (06:07)
[2018-06-02] MEDS: SUCRALFATE 1 GM TAB PO ×4 (06:28→20:14)
[2018-06-02] MEDS: OMEPRAZOLE 20 MG CAP PO ×2 (08:03→20:14)
[2018-06-02] MEDS: ALLOPURINOL 100 MG TAB PO (08:03)
[2018-06-02] MEDS: SITagliptin 50 MG TAB (JANUVIA) PO (08:03)
[2018-06-02] MEDS: LISINOPRIL 20 MG TAB PO (08:03)
[2018-06-02] MEDS: DULoxetine 30 MG CAP (CYMBALTA) PO (08:03)
[2018-06-02] MEDS: LEVEMIR (INSULIN DETEMIR) 1 UNITS/0.01ML SC ×2 (08:04→20:15)
[2018-06-02 08:18] LABS: HEMATOCRIT 34.1 % (42.0-52.0); HEMOGLOBIN 11.2 g/dl (13.5-17.5); MEAN CORPUSCULAR HEMOGLOBIN 29.8 pg (27.0-33.0); MEAN CORPUSCULAR HGB CONC 32.8 g/dl (32.0-36.5); MEAN CORPUSCULAR VOLUME 90.7 fl (80.0-96.0); PLATELET COUNT, AUTOMATED 177 10^3/uL (150-450); RED BLOOD COUNT 3.76 10^6/uL (4.30-6.10); RED CELL DISTRIBUTION WIDTH 15.3 % (11.5-14.5); WHITE BLOOD COUNT 4.7 10^3/uL (4.0-10.0)
[2018-06-02 08:49] LABS: ALBUMIN 3.8 GM/DL (3.2-5.2); ALBUMIN/GLOBULIN RATIO 1.31 (1.00-1.93); ALKALINE PHOSPHATASE 121 U/L (45-117); ALT/SGPT 40 U/L (12-78); ANION GAP 8 MEQ/L (8-16); AST/SGOT 28 U/L (7-37); BILIRUBIN,TOTAL 0.4 MG/DL (0.2-1.0); BLOOD UREA NITROGEN 22 MG/DL (7-18); CALCIUM LEVEL 9.6 MG/DL (8.8-10.2); CARBON DIOXIDE LEVEL 27 MEQ/L (21-32); CHLORIDE LEVEL 106 MEQ/L (98-107); CREATININE FOR GFR 1.24 MG/DL (0.70-1.30); GLOMERULAR FILTRATION RATE 58.6 (>35); GLUCOSE, FASTING 191 MG/DL (70-100); POTASSIUM SERUM 4.2 MEQ/L (3.5-5.1); SODIUM LEVEL 141 MEQ/L (136-145); TOTAL PROTEIN 6.7 GM/DL (6.4-8.2)
[2018-06-02] MEDS: TRIAMCINOLONE ACET 0.1% CREAM 80 GM TOP ×2 (09:57→20:54)
[2018-06-02] MEDS: LOTRISONE CREAM 15 GM (BETAMETH/CLOTRIMAZOLE) TOP ×2 (09:57→20:54)
[2018-06-02] MEDS: MAGNESIUM OXIDE 400 MG TAB (MAG-OX) PO (11:42)
[2018-06-02] MEDS: FERROUS SULFATE 325MG TAB PO (11:42)
[2018-06-02] MEDS: DOCUSATE SODIUM 100 MG CAP PO (11:42)
[2018-06-02 16:41] LABS: BEDSIDE GLUCOSE 374 MG/DL (83-110)
[2018-06-02] MEDS: PRAVASTATIN 20 MG TAB PO (20:14)
[2018-06-03] MEDS: LEVOTHYROXINE 75MCG TABLET (0.075MG) PO (06:16)
[2018-06-03 06:26] LABS: BEDSIDE GLUCOSE 134 MG/DL (83-110)
[2018-06-03] MEDS: SUCRALFATE 1 GM TAB PO ×4 (06:54→21:28)
[2018-06-03] MEDS: OMEPRAZOLE 20 MG CAP PO ×2 (08:34→21:28)
[2018-06-03] MEDS: LOTRISONE CREAM 15 GM (BETAMETH/CLOTRIMAZOLE) TOP ×2 (08:34→21:30)
[2018-06-03] MEDS: SITagliptin 50 MG TAB (JANUVIA) PO (08:34)
[2018-06-03] MEDS: TRIAMCINOLONE ACET 0.1% CREAM 80 GM TOP ×2 (08:34→21:30)
[2018-06-03] MEDS: ALLOPURINOL 100 MG TAB PO (08:34)
[2018-06-03] MEDS: LISINOPRIL 20 MG TAB PO (08:35)
[2018-06-03] MEDS: DULoxetine 30 MG CAP (CYMBALTA) PO (08:35)
[2018-06-03] MEDS: LEVEMIR (INSULIN DETEMIR) 1 UNITS/0.01ML SC ×2 (08:38→21:33)
[2018-06-03] MEDS: MAGNESIUM OXIDE 400 MG TAB (MAG-OX) PO (11:27)
[2018-06-03] MEDS: FERROUS SULFATE 325MG TAB PO (11:27)
[2018-06-03] MEDS: DOCUSATE SODIUM 100 MG CAP PO (11:28)
[2018-06-03] MEDS: MAALOX 30 ML SUSP *UDC PO (15:39)
[2018-06-03 16:10] LABS: BEDSIDE GLUCOSE 247 MG/DL (83-110)
[2018-06-03] MEDS ORDERED: GLUCOSE 4 GM CHEW TABLET PO (19:00)
[2018-06-03] MEDS ORDERED: GLUCAGON FOR INJ 1 MG VIAL (J1610) SC (19:00)
[2018-06-03 21:28] LABS: BEDSIDE GLUCOSE 302 MG/DL (83-110)
[2018-06-03] MEDS: PRAVASTATIN 20 MG TAB PO (21:28)
[2018-06-03] MEDS: HumaLOG INSULIN (NovoLOG) PER UNIT SC (21:31)
[2018-06-04] MEDS: LEVOTHYROXINE 75MCG TABLET (0.075MG) PO (06:21)
[2018-06-04 06:38] LABS: BEDSIDE GLUCOSE 141 MG/DL (83-110)
[2018-06-04] MEDS: SUCRALFATE 1 GM TAB PO ×4 (06:54→20:25)
[2018-06-04] MEDS: HumaLOG INSULIN (NovoLOG) PER UNIT SC ×4 (06:56→20:27)
[2018-06-04] MEDS: TRIAMCINOLONE ACET 0.1% CREAM 80 GM TOP ×2 (08:51→20:26)
[2018-06-04] MEDS: LISINOPRIL 20 MG TAB PO (08:51)
[2018-06-04] MEDS: LOTRISONE CREAM 15 GM (BETAMETH/CLOTRIMAZOLE) TOP ×2 (08:51→20:25)
[2018-06-04] MEDS: OMEPRAZOLE 20 MG CAP PO ×2 (08:51→20:25)
[2018-06-04] MEDS: DULoxetine 30 MG CAP (CYMBALTA) PO (08:51)
[2018-06-04] MEDS: SITagliptin 50 MG TAB (JANUVIA) PO (08:51)
[2018-06-04] MEDS: ALLOPURINOL 100 MG TAB PO (08:51)
[2018-06-04] MEDS: LEVEMIR (INSULIN DETEMIR) 1 UNITS/0.01ML SC ×2 (08:53→20:27)
[2018-06-04] MEDS: MAGNESIUM OXIDE 400 MG TAB (MAG-OX) PO (11:26)
[2018-06-04] MEDS: DOCUSATE SODIUM 100 MG CAP PO (11:26)
[2018-06-04] MEDS: FERROUS SULFATE 325MG TAB PO (11:26)
[2018-06-04 11:51] LABS: BEDSIDE GLUCOSE 271 MG/DL (83-110)
[2018-06-04 17:00] LABS: BEDSIDE GLUCOSE 210 MG/DL (83-110)
[2018-06-04] MEDS: PRAVASTATIN 20 MG TAB PO (20:25)
[2018-06-04] MEDS: traZODone 50 MG TAB PO (20:25)
[2018-06-04 20:26] LABS: BEDSIDE GLUCOSE 245 MG/DL (83-110)
[2018-06-05 06:25] LABS: BEDSIDE GLUCOSE 133 MG/DL (83-110)
[2018-06-05] MEDS: SUCRALFATE 1 GM TAB PO ×4 (06:37→22:39)
[2018-06-05] MEDS: LEVOTHYROXINE 75MCG TABLET (0.075MG) PO (06:37)
[2018-06-05] MEDS: HumaLOG INSULIN (NovoLOG) PER UNIT SC ×4 (06:48→21:00)
[2018-06-05] MEDS: LEVEMIR (INSULIN DETEMIR) 1 UNITS/0.01ML SC ×2 (08:43→22:41)
[2018-06-05] MEDS: LISINOPRIL 20 MG TAB PO (08:43)
[2018-06-05] MEDS: OMEPRAZOLE 20 MG CAP PO ×2 (08:43→22:39)
[2018-06-05] MEDS: DULoxetine 30 MG CAP (CYMBALTA) PO (08:43)
[2018-06-05] MEDS: LOTRISONE CREAM 15 GM (BETAMETH/CLOTRIMAZOLE) TOP ×2 (08:44→21:00)
[2018-06-05] MEDS: TRIAMCINOLONE ACET 0.1% CREAM 80 GM TOP ×2 (08:44→21:00)
[2018-06-05] MEDS: SITagliptin 50 MG TAB (JANUVIA) PO (08:44)
[2018-06-05] MEDS: ALLOPURINOL 100 MG TAB PO (08:44)
[2018-06-05] MEDS: MAGNESIUM OXIDE 400 MG TAB (MAG-OX) PO (11:50)
[2018-06-05] MEDS: DOCUSATE SODIUM 100 MG CAP PO (11:51)
[2018-06-05] MEDS: FERROUS SULFATE 325MG TAB PO (11:51)
[2018-06-05 11:57] LABS: BEDSIDE GLUCOSE 255 MG/DL (83-110)
[2018-06-05] MEDS: BACITRACIN OINT 30GM TOP (12:03)
[2018-06-05] MEDS: ACETAMINOPHEN 500 MG TAB PO (16:55)
[2018-06-05 17:06] LABS: BEDSIDE GLUCOSE 264 MG/DL (83-110)
[2018-06-05 22:39] LABS: BEDSIDE GLUCOSE 241 MG/DL (83-110)
[2018-06-05] MEDS: PRAVASTATIN 20 MG TAB PO (22:39)
[2018-06-06] MEDS: LEVOTHYROXINE 75MCG TABLET (0.075MG) PO (06:06)
[2018-06-06 06:27] LABS: BEDSIDE GLUCOSE 100 MG/DL (83-110)
[2018-06-06] MEDS: HumaLOG INSULIN (NovoLOG) PER UNIT SC ×4 (06:29→21:40)
[2018-06-06] MEDS: SUCRALFATE 1 GM TAB PO ×4 (06:33→21:38)
[2018-06-06] MEDS: LEVEMIR (INSULIN DETEMIR) 1 UNITS/0.01ML SC ×2 (08:26→21:38)
[2018-06-06] MEDS: DULoxetine 30 MG CAP (CYMBALTA) PO (08:26)
[2018-06-06] MEDS: OMEPRAZOLE 20 MG CAP PO ×2 (08:26→21:38)
[2018-06-06] MEDS: ALLOPURINOL 100 MG TAB PO (08:27)
[2018-06-06] MEDS: LISINOPRIL 20 MG TAB PO (08:27)
[2018-06-06] MEDS: SITagliptin 50 MG TAB (JANUVIA) PO (08:27)
[2018-06-06] MEDS: LOTRISONE CREAM 15 GM (BETAMETH/CLOTRIMAZOLE) TOP ×2 (08:27→21:38)
[2018-06-06] MEDS: BACITRACIN OINT 30GM TOP (08:28)
[2018-06-06] MEDS: TRIAMCINOLONE ACET 0.1% CREAM 80 GM TOP ×2 (08:31→21:38)
[2018-06-06 11:51] LABS: BEDSIDE GLUCOSE 288 MG/DL (83-110)
[2018-06-06] MEDS: FERROUS SULFATE 325MG TAB PO (11:52)
[2018-06-06] MEDS: DOCUSATE SODIUM 100 MG CAP PO (11:52)
[2018-06-06] MEDS: MAGNESIUM OXIDE 400 MG TAB (MAG-OX) PO (11:52)
[2018-06-06 16:43] LABS: BEDSIDE GLUCOSE 181 MG/DL (83-110)
[2018-06-06 21:35] LABS: BEDSIDE GLUCOSE 319 MG/DL (83-110)
[2018-06-06] MEDS: PRAVASTATIN 20 MG TAB PO (21:38)
[2018-06-07] MEDS: LEVOTHYROXINE 75MCG TABLET (0.075MG) PO (06:13)
[2018-06-07] MEDS: HumaLOG INSULIN (NovoLOG) PER UNIT SC ×4 (06:35→20:14)
[2018-06-07] MEDS: SUCRALFATE 1 GM TAB PO ×4 (06:35→20:11)
[2018-06-07 06:36] LABS: BEDSIDE GLUCOSE 89 MG/DL (83-110)
[2018-06-07] MEDS: OMEPRAZOLE 20 MG CAP PO ×2 (09:16→20:11)
[2018-06-07] MEDS: DULoxetine 30 MG CAP (CYMBALTA) PO (09:16)
[2018-06-07] MEDS: LISINOPRIL 20 MG TAB PO (09:16)
[2018-06-07] MEDS: LEVEMIR (INSULIN DETEMIR) 1 UNITS/0.01ML SC ×2 (09:16→20:12)
[2018-06-07] MEDS: SITagliptin 50 MG TAB (JANUVIA) PO (09:16)
[2018-06-07] MEDS: ALLOPURINOL 100 MG TAB PO (09:16)
[2018-06-07] MEDS: BACITRACIN OINT 30GM TOP (09:17)
[2018-06-07] MEDS: LOTRISONE CREAM 15 GM (BETAMETH/CLOTRIMAZOLE) TOP ×2 (09:18→20:13)
[2018-06-07] MEDS: TRIAMCINOLONE ACET 0.1% CREAM 80 GM TOP ×2 (09:18→20:13)
[2018-06-07] MEDS: FERROUS SULFATE 325MG TAB PO (11:38)
[2018-06-07] MEDS: DOCUSATE SODIUM 100 MG CAP PO (11:38)
[2018-06-07] MEDS: MAGNESIUM OXIDE 400 MG TAB (MAG-OX) PO (11:38)
[2018-06-07 11:46] LABS: BEDSIDE GLUCOSE 188 MG/DL (83-110)
[2018-06-07 17:19] LABS: BEDSIDE GLUCOSE 178 MG/DL (83-110)
[2018-06-07 20:08] LABS: BEDSIDE GLUCOSE 232 MG/DL (83-110)
[2018-06-07] MEDS: PRAVASTATIN 20 MG TAB PO (20:11)
[2018-06-08 06:28] LABS: BEDSIDE GLUCOSE 111 MG/DL (83-110)
[2018-06-08] MEDS: SUCRALFATE 1 GM TAB PO ×4 (07:01→20:26)
[2018-06-08] MEDS: LEVOTHYROXINE 75MCG TABLET (0.075MG) PO (07:01)
[2018-06-08] MEDS: HumaLOG INSULIN (NovoLOG) PER UNIT SC ×4 (07:02→21:00)
[2018-06-08 07:49] LABS: HEMATOCRIT 34.8 % (42.0-52.0); HEMOGLOBIN 11.1 g/dl (13.5-17.5); MEAN CORPUSCULAR HEMOGLOBIN 29.4 pg (27.0-33.0); MEAN CORPUSCULAR HGB CONC 31.9 g/dl (32.0-36.5); MEAN CORPUSCULAR VOLUME 92.3 fl (80.0-96.0); PLATELET COUNT, AUTOMATED 150 10^3/uL (150-450); RED BLOOD COUNT 3.77 10^6/uL (4.30-6.10); RED CELL DISTRIBUTION WIDTH 15.5 % (11.5-14.5); WHITE BLOOD COUNT 3.9 10^3/uL (4.0-10.0)
[2018-06-08 07:52] LABS: ALBUMIN 3.5 GM/DL (3.2-5.2); ALKALINE PHOSPHATASE 143 U/L (45-117); ALT/SGPT 40 U/L (12-78); ANION GAP 7 MEQ/L (8-16); AST/SGOT 36 U/L (7-37); BILIRUBIN,TOTAL 0.4 MG/DL (0.2-1.0); BLOOD UREA NITROGEN 23 MG/DL (7-18); CALCIUM LEVEL 9.5 MG/DL (8.8-10.2); CARBON DIOXIDE LEVEL 31 MEQ/L (21-32); CHLORIDE LEVEL 107 MEQ/L (98-107); CREATININE FOR GFR 1.29 MG/DL (0.70-1.30); GLUCOSE, FASTING 133 MG/DL (70-100); POTASSIUM SERUM 4.5 MEQ/L (3.5-5.1); SODIUM LEVEL 145 MEQ/L (136-145)
[2018-06-08] MEDS: SITagliptin 50 MG TAB (JANUVIA) PO (08:43)
[2018-06-08] MEDS: OMEPRAZOLE 20 MG CAP PO ×2 (08:43→20:26)
[2018-06-08] MEDS: DULoxetine 30 MG CAP (CYMBALTA) PO (08:43)
[2018-06-08] MEDS: LISINOPRIL 20 MG TAB PO (08:43)
[2018-06-08] MEDS: ALLOPURINOL 100 MG TAB PO (08:43)
[2018-06-08] MEDS: TRIAMCINOLONE ACET 0.1% CREAM 80 GM TOP ×2 (08:44→20:37)
[2018-06-08] MEDS: BACITRACIN OINT 30GM TOP (08:44)
[2018-06-08] MEDS: LEVEMIR (INSULIN DETEMIR) 1 UNITS/0.01ML SC ×2 (09:01→20:38)
[2018-06-08 11:30] LABS: ESTIMATED AVERAGE GLUCOSE 194 MG/DL (60-110); HEMOGLOBIN A1c 8.4 %
[2018-06-08 12:04] LABS: BEDSIDE GLUCOSE 190 MG/DL (83-110)
[2018-06-08] MEDS: MAGNESIUM OXIDE 400 MG TAB (MAG-OX) PO (12:18)
[2018-06-08] MEDS: FERROUS SULFATE 325MG TAB PO (12:18)
[2018-06-08] MEDS: DOCUSATE SODIUM 100 MG CAP PO (12:18)
[2018-06-08 17:44] LABS: BEDSIDE GLUCOSE 178 MG/DL (83-110)
[2018-06-08 20:22] LABS: BEDSIDE GLUCOSE 224 MG/DL (83-110)
[2018-06-08] MEDS: PRAVASTATIN 20 MG TAB PO (20:26)
[2018-06-09] MEDS: LEVOTHYROXINE 75MCG TABLET (0.075MG) PO (06:21)
[2018-06-09 06:31] LABS: BEDSIDE GLUCOSE 77 MG/DL (83-110)
[2018-06-09] MEDS: HumaLOG INSULIN (NovoLOG) PER UNIT SC ×4 (06:33→20:32)
[2018-06-09] MEDS: SUCRALFATE 1 GM TAB PO ×4 (06:46→20:31)
[2018-06-09 07:40] LABS: HEMATOCRIT 34.2 % (42.0-52.0); MEAN CORPUSCULAR HEMOGLOBIN 29.7 pg (27.0-33.0); MEAN CORPUSCULAR HGB CONC 32.2 g/dl (32.0-36.5); MEAN CORPUSCULAR VOLUME 92.4 fl (80.0-96.0); PLATELET COUNT, AUTOMATED 143 10^3/uL (150-450)
[2018-06-09 08:01] LABS: ALBUMIN 3.5 GM/DL (3.2-5.2); ALBUMIN/GLOBULIN RATIO 1.13 (1.00-1.93); ALKALINE PHOSPHATASE 143 U/L (45-117); ALT/SGPT 44 U/L (12-78); ANION GAP 6 MEQ/L (8-16); AST/SGOT 39 U/L (7-37); BILIRUBIN,TOTAL 0.3 MG/DL (0.2-1.0); BLOOD UREA NITROGEN 22 MG/DL (7-18); CALCIUM LEVEL 8.9 MG/DL (8.8-10.2); CARBON DIOXIDE LEVEL 30 MEQ/L (21-32); CHLORIDE LEVEL 107 MEQ/L (98-107); CREATININE FOR GFR 1.29 MG/DL (0.70-1.30); GLUCOSE, FASTING 102 MG/DL (70-100); POTASSIUM SERUM 4.7 MEQ/L (3.5-5.1); SODIUM LEVEL 143 MEQ/L (136-145); TOTAL PROTEIN 6.6 GM/DL (6.4-8.2)
[2018-06-09] MEDS: DULoxetine 30 MG CAP (CYMBALTA) PO (08:37)
[2018-06-09] MEDS: SITagliptin 50 MG TAB (JANUVIA) PO (08:37)
[2018-06-09] MEDS: OMEPRAZOLE 20 MG CAP PO ×2 (08:37→20:31)
[2018-06-09] MEDS: LISINOPRIL 20 MG TAB PO (08:37)
[2018-06-09] MEDS: LEVEMIR (INSULIN DETEMIR) 1 UNITS/0.01ML SC ×2 (08:37→20:33)
[2018-06-09] MEDS: BACITRACIN OINT 30GM TOP (08:44)
[2018-06-09] MEDS: TRIAMCINOLONE ACET 0.1% CREAM 80 GM TOP ×2 (08:44→20:33)
[2018-06-09] MEDS ORDERED: LIDOCAINE 5% (LIDODERM) PATCH TD (09:00)
[2018-06-09] MEDS: MIRALAX *UNIT DOSE* 17GM PACKET PO (09:13)
[2018-06-09] MEDS: ALLOPURINOL 100 MG TAB PO (09:23)
[2018-06-09 09:56] LABS: KETONE, URINE AUTO RFX NEGATIVE (NEGATIVE); LEUKOCYTE ESTERASE UR AUTO RFX NEGATIVE (NEGATIVE); MUCUS, URINE RFX SMALL (NEGATIVE); NITRITE, URINE AUTO RFX NEGATIVE (NEGATIVE); RBC, URINE AUTO RFX 0 /HPF (0-3); SPECIFIC GRAVITY UR AUTO RFX 1.015 (1.002-1.035); SQUAM EPITHELIAL CELL UR AURFX 0 /HPF (0-6); WBC, URINE AUTO RFX 0 /HPF (0-3)
[2018-06-09] MEDS: MAGNESIUM OXIDE 400 MG TAB (MAG-OX) PO (12:25)
[2018-06-09] MEDS: DOCUSATE SODIUM 100 MG CAP PO (12:26)
[2018-06-09] MEDS: FERROUS SULFATE 325MG TAB PO (12:26)
[2018-06-09 12:34] LABS: BEDSIDE GLUCOSE 291 MG/DL (83-110)
[2018-06-09 16:57] LABS: BEDSIDE GLUCOSE 249 MG/DL (83-110)
[2018-06-09 20:26] LABS: BEDSIDE GLUCOSE 263 MG/DL (83-110)
[2018-06-09] MEDS: traZODone 50 MG TAB PO (20:30)
[2018-06-09] MEDS: PRAVASTATIN 20 MG TAB PO (20:31)
[2018-06-09] MEDS ORDERED: **NOTE PATIENT COMMENT** MISC XX (21:00)
[2018-06-10 06:11] LABS: BEDSIDE GLUCOSE 127 MG/DL (83-110)
[2018-06-10] MEDS: LEVOTHYROXINE 75MCG TABLET (0.075MG) PO (06:13)
[2018-06-10] MEDS: SUCRALFATE 1 GM TAB PO ×4 (06:31→21:16)
[2018-06-10] MEDS: HumaLOG INSULIN (NovoLOG) PER UNIT SC ×4 (06:32→21:12)
[2018-06-10] MEDS: LEVEMIR (INSULIN DETEMIR) 1 UNITS/0.01ML SC ×2 (08:50→21:11)
[2018-06-10] MEDS: OMEPRAZOLE 20 MG CAP PO ×2 (08:50→21:16)
[2018-06-10] MEDS: DULoxetine 30 MG CAP (CYMBALTA) PO (08:50)
[2018-06-10] MEDS: LISINOPRIL 20 MG TAB PO (08:51)
[2018-06-10] MEDS: BACITRACIN OINT 30GM TOP (08:52)
[2018-06-10] MEDS: TRIAMCINOLONE ACET 0.1% CREAM 80 GM TOP ×2 (08:53→21:12)
[2018-06-10] MEDS: ALLOPURINOL 100 MG TAB PO (08:57)
[2018-06-10 11:49] LABS: BEDSIDE GLUCOSE 272 MG/DL (83-110)
[2018-06-10] MEDS: DOCUSATE SODIUM 100 MG CAP PO (12:01)
[2018-06-10] MEDS: MIRALAX *UNIT DOSE* 17GM PACKET PO (12:01)
[2018-06-10] MEDS: FERROUS SULFATE 325MG TAB PO (12:02)
[2018-06-10] MEDS: MAGNESIUM OXIDE 400 MG TAB (MAG-OX) PO (12:02)
[2018-06-10 17:18] LABS: BEDSIDE GLUCOSE 163 MG/DL (83-110)
[2018-06-10 21:13] LABS: BEDSIDE GLUCOSE 277 MG/DL (83-110)
[2018-06-10] MEDS: PRAVASTATIN 20 MG TAB PO (21:16)
[2018-06-10] MEDS: traZODone 50 MG TAB PO (21:18)
[2018-06-11 06:21] LABS: BEDSIDE GLUCOSE 82 MG/DL (83-110)
[2018-06-11] MEDS: LEVOTHYROXINE 75MCG TABLET (0.075MG) PO (06:22)
[2018-06-11] MEDS: SUCRALFATE 1 GM TAB PO ×4 (06:39→22:14)
[2018-06-11] MEDS: HumaLOG INSULIN (NovoLOG) PER UNIT SC ×4 (06:39→22:31)
[2018-06-11] MEDS: LISINOPRIL 20 MG TAB PO (09:36)
[2018-06-11] MEDS: DULoxetine 30 MG CAP (CYMBALTA) PO (09:36)
[2018-06-11] MEDS: ALLOPURINOL 100 MG TAB PO (09:36)
[2018-06-11] MEDS: LEVEMIR (INSULIN DETEMIR) 1 UNITS/0.01ML SC ×2 (09:36→22:29)
[2018-06-11] MEDS: OMEPRAZOLE 20 MG CAP PO ×2 (09:36→22:15)
[2018-06-11] MEDS: TRIAMCINOLONE ACET 0.1% CREAM 80 GM TOP ×2 (09:37→22:16)
[2018-06-11] MEDS: BACITRACIN OINT 30GM TOP (09:37)
[2018-06-11 11:20] LABS: BEDSIDE GLUCOSE 281 MG/DL (83-110)
[2018-06-11] MEDS: FERROUS SULFATE 325MG TAB PO (11:41)
[2018-06-11] MEDS: MAGNESIUM OXIDE 400 MG TAB (MAG-OX) PO (11:41)
[2018-06-11] MEDS: DOCUSATE SODIUM 100 MG CAP PO (11:41)
[2018-06-11 16:58] LABS: BEDSIDE GLUCOSE 324 MG/DL (83-110)
[2018-06-11] MEDS: PRAVASTATIN 20 MG TAB PO (22:14)
[2018-06-11 22:31] LABS: BEDSIDE GLUCOSE 292 MG/DL (83-110)
[2018-06-12] MEDS: IBUPROFEN 400 MG TAB PO ×2 (01:19→22:50)
[2018-06-12] MEDS: LEVOTHYROXINE 75MCG TABLET (0.075MG) PO (06:14)
[2018-06-12 06:30] LABS: BEDSIDE GLUCOSE 72 MG/DL (83-110)
[2018-06-12 06:30] LABS: BEDSIDE GLUCOSE 81 MG/DL (83-110)
[2018-06-12] MEDS: HumaLOG INSULIN (NovoLOG) PER UNIT SC ×4 (06:59→21:00)
[2018-06-12] MEDS: SUCRALFATE 1 GM TAB PO ×4 (06:59→20:47)
[2018-06-12] MEDS: OMEPRAZOLE 20 MG CAP PO ×2 (08:08→20:47)
[2018-06-12] MEDS: DULoxetine 30 MG CAP (CYMBALTA) PO (08:08)
[2018-06-12] MEDS: LISINOPRIL 20 MG TAB PO (08:08)
[2018-06-12] MEDS: ALLOPURINOL 100 MG TAB PO (08:08)
[2018-06-12] MEDS: TRIAMCINOLONE ACET 0.1% CREAM 80 GM TOP ×2 (08:09→20:48)
[2018-06-12] MEDS: BACITRACIN OINT 30GM TOP (08:09)
[2018-06-12] MEDS: LEVEMIR (INSULIN DETEMIR) 1 UNITS/0.01ML SC ×2 (08:12→21:21)
[2018-06-12] MEDS: MAGNESIUM OXIDE 400 MG TAB (MAG-OX) PO (12:04)
[2018-06-12] MEDS: FERROUS SULFATE 325MG TAB PO (12:04)
[2018-06-12] MEDS: DOCUSATE SODIUM 100 MG CAP PO (12:04)
[2018-06-12 12:09] LABS: BEDSIDE GLUCOSE 163 MG/DL (83-110)
[2018-06-12 17:09] LABS: BEDSIDE GLUCOSE 225 MG/DL (83-110)
[2018-06-12 20:46] LABS: BEDSIDE GLUCOSE 246 MG/DL (83-110)
[2018-06-12] MEDS: PRAVASTATIN 20 MG TAB PO (20:47)
[2018-06-13] MEDS: LEVOTHYROXINE 75MCG TABLET (0.075MG) PO (06:02)
[2018-06-13 06:16] LABS: BEDSIDE GLUCOSE 71 MG/DL (83-110)
[2018-06-13] MEDS: SUCRALFATE 1 GM TAB PO ×4 (07:02→21:13)
[2018-06-13] MEDS: HumaLOG INSULIN (NovoLOG) PER UNIT SC ×4 (07:04→21:00)
[2018-06-13] MEDS: LEVEMIR (INSULIN DETEMIR) 1 UNITS/0.01ML SC ×2 (09:00→21:14)
[2018-06-13] MEDS: OMEPRAZOLE 20 MG CAP PO ×2 (09:04→21:13)
[2018-06-13] MEDS: DULoxetine 30 MG CAP (CYMBALTA) PO (09:04)
[2018-06-13] MEDS: ALLOPURINOL 100 MG TAB PO (09:04)
[2018-06-13] MEDS: LISINOPRIL 20 MG TAB PO (09:04)
[2018-06-13] MEDS: BACITRACIN OINT 30GM TOP (09:05)
[2018-06-13] MEDS: TRIAMCINOLONE ACET 0.1% CREAM 80 GM TOP ×2 (09:06→21:00)
[2018-06-13] MEDS: FERROUS SULFATE 325MG TAB PO (12:09)
[2018-06-13] MEDS: MAGNESIUM OXIDE 400 MG TAB (MAG-OX) PO (12:09)
[2018-06-13] MEDS: DOCUSATE SODIUM 100 MG CAP PO ×2 (12:09→18:17)
[2018-06-13 12:15] LABS: BEDSIDE GLUCOSE 186 MG/DL (83-110)
[2018-06-13 16:20] LABS: BEDSIDE GLUCOSE 278 MG/DL (83-110)
[2018-06-13] MEDS: ALBUTEROL 90 MCG/ACT 8GM HFA INHALER INH (16:23)
[2018-06-13] MEDS: MAALOX 30 ML SUSP *UDC PO (16:23)
[2018-06-13] MEDS: MOM 30ML SUSPENSION UDC PO (17:06)
[2018-06-13 17:14] LABS: BEDSIDE GLUCOSE 289 MG/DL (83-110)
[2018-06-13 21:07] LABS: BEDSIDE GLUCOSE 167 MG/DL (83-110)
[2018-06-13] MEDS: PRAVASTATIN 20 MG TAB PO (21:13)
[2018-06-14 06:14] LABS: BEDSIDE GLUCOSE 104 MG/DL (83-110)
[2018-06-14] MEDS: LEVOTHYROXINE 75MCG TABLET (0.075MG) PO (06:15)
[2018-06-14] MEDS: SUCRALFATE 1 GM TAB PO ×4 (06:34→20:44)
[2018-06-14] MEDS: HumaLOG INSULIN (NovoLOG) PER UNIT SC ×4 (06:36→20:42)
[2018-06-14] MEDS: ALLOPURINOL 100 MG TAB PO (09:38)
[2018-06-14] MEDS: OMEPRAZOLE 20 MG CAP PO ×2 (09:42→20:44)
[2018-06-14] MEDS: LISINOPRIL 20 MG TAB PO (09:42)
[2018-06-14] MEDS: TRIAMCINOLONE ACET 0.1% CREAM 80 GM TOP ×2 (09:43→20:44)
[2018-06-14] MEDS: BACITRACIN OINT 30GM TOP (09:43)
[2018-06-14] MEDS: DULoxetine 30 MG CAP (CYMBALTA) PO (09:43)
[2018-06-14] MEDS: LEVEMIR (INSULIN DETEMIR) 1 UNITS/0.01ML SC ×2 (09:45→20:46)
[2018-06-14 12:49] LABS: BEDSIDE GLUCOSE 175 MG/DL (83-110)
[2018-06-14] MEDS: FERROUS SULFATE 325MG TAB PO (12:53)
[2018-06-14] MEDS: DOCUSATE SODIUM 100 MG CAP PO (12:54)
[2018-06-14] MEDS: MAGNESIUM OXIDE 400 MG TAB (MAG-OX) PO (12:54)
[2018-06-14 17:47] LABS: BEDSIDE GLUCOSE 183 MG/DL (83-110)
[2018-06-14 20:44] LABS: BEDSIDE GLUCOSE 204 MG/DL (83-110)
[2018-06-14] MEDS: traZODone 50 MG TAB PO (20:44)
[2018-06-14] MEDS: PRAVASTATIN 20 MG TAB PO (20:44)
[2018-06-15 06:09] LABS: BEDSIDE GLUCOSE 105 MG/DL (83-110)
[2018-06-15] MEDS: LEVOTHYROXINE 75MCG TABLET (0.075MG) PO (06:12)
[2018-06-15] MEDS: SUCRALFATE 1 GM TAB PO ×4 (06:31→20:56)
[2018-06-15] MEDS: HumaLOG INSULIN (NovoLOG) PER UNIT SC ×4 (06:31→20:51)
[2018-06-15] MEDS: OMEPRAZOLE 20 MG CAP PO ×2 (07:40→20:56)
[2018-06-15] MEDS: ALLOPURINOL 100 MG TAB PO (07:41)
[2018-06-15] MEDS: DULoxetine 30 MG CAP (CYMBALTA) PO (07:41)
[2018-06-15] MEDS: LISINOPRIL 20 MG TAB PO (07:41)
[2018-06-15] MEDS: LEVEMIR (INSULIN DETEMIR) 1 UNITS/0.01ML SC ×2 (07:42→20:57)
[2018-06-15] MEDS: BACITRACIN OINT 30GM TOP (09:00)
[2018-06-15] MEDS: TRIAMCINOLONE ACET 0.1% CREAM 80 GM TOP ×2 (09:00→20:53)
[2018-06-15] MEDS: DOCUSATE SODIUM 100 MG CAP PO (12:00)
[2018-06-15] MEDS: MAGNESIUM OXIDE 400 MG TAB (MAG-OX) PO (12:00)
[2018-06-15] MEDS: FERROUS SULFATE 325MG TAB PO (12:00)
[2018-06-15 17:06] LABS: BEDSIDE GLUCOSE 225 MG/DL (83-110)
[2018-06-15 20:53] LABS: BEDSIDE GLUCOSE 206 MG/DL (83-110)
[2018-06-15] MEDS: traZODone 50 MG TAB PO (20:56)
[2018-06-15] MEDS: PRAVASTATIN 20 MG TAB PO (20:56)
[2018-06-16] MEDS: LEVOTHYROXINE 75MCG TABLET (0.075MG) PO (06:34)
[2018-06-16] MEDS: SUCRALFATE 1 GM TAB PO ×4 (06:34→20:55)
[2018-06-16] MEDS: HumaLOG INSULIN (NovoLOG) PER UNIT SC ×4 (06:40→21:00)
[2018-06-16 06:41] LABS: BEDSIDE GLUCOSE 128 MG/DL (83-110)
[2018-06-16] MEDS: LISINOPRIL 20 MG TAB PO (09:35)
[2018-06-16] MEDS: OMEPRAZOLE 20 MG CAP PO ×2 (09:35→20:55)
[2018-06-16] MEDS: DULoxetine 30 MG CAP (CYMBALTA) PO (09:35)
[2018-06-16] MEDS: ALLOPURINOL 100 MG TAB PO (09:36)
[2018-06-16] MEDS: TRIAMCINOLONE ACET 0.1% CREAM 80 GM TOP ×2 (09:36→21:38)
[2018-06-16] MEDS: BACITRACIN OINT 30GM TOP (09:36)
[2018-06-16] MEDS: LEVEMIR (INSULIN DETEMIR) 1 UNITS/0.01ML SC ×2 (09:43→20:56)
[2018-06-16 11:53] LABS: BEDSIDE GLUCOSE 151 MG/DL (83-110)
[2018-06-16] MEDS: MAGNESIUM OXIDE 400 MG TAB (MAG-OX) PO (11:55)
[2018-06-16] MEDS: DOCUSATE SODIUM 100 MG CAP PO (11:56)
[2018-06-16] MEDS: FERROUS SULFATE 325MG TAB PO (11:56)
[2018-06-16 17:12] LABS: BEDSIDE GLUCOSE 273 MG/DL (83-110)
[2018-06-16 20:55] LABS: BEDSIDE GLUCOSE 174 MG/DL (83-110)
[2018-06-16] MEDS: PRAVASTATIN 20 MG TAB PO (20:56)
[2018-06-17 06:32] LABS: BEDSIDE GLUCOSE 74 MG/DL (83-110)
[2018-06-17] MEDS: LEVOTHYROXINE 75MCG TABLET (0.075MG) PO ×2 (06:42→06:51)
[2018-06-17] MEDS: SUCRALFATE 1 GM TAB PO ×4 (06:52→20:47)
[2018-06-17] MEDS: HumaLOG INSULIN (NovoLOG) PER UNIT SC ×4 (06:52→21:50)
[2018-06-17] MEDS: DULoxetine 30 MG CAP (CYMBALTA) PO (08:48)
[2018-06-17] MEDS: ALLOPURINOL 100 MG TAB PO (08:48)
[2018-06-17] MEDS: OMEPRAZOLE 20 MG CAP PO ×2 (08:48→20:47)
[2018-06-17] MEDS: LISINOPRIL 20 MG TAB PO (08:49)
[2018-06-17] MEDS: BACITRACIN OINT 30GM TOP (08:49)
[2018-06-17] MEDS: TRIAMCINOLONE ACET 0.1% CREAM 80 GM TOP ×2 (08:49→21:51)
[2018-06-17] MEDS: LEVEMIR (INSULIN DETEMIR) 1 UNITS/0.01ML SC ×2 (08:52→21:51)
[2018-06-17] MEDS: MAGNESIUM OXIDE 400 MG TAB (MAG-OX) PO (12:03)
[2018-06-17] MEDS: FERROUS SULFATE 325MG TAB PO (12:03)
[2018-06-17] MEDS: DOCUSATE SODIUM 100 MG CAP PO (12:03)
[2018-06-17 12:09] LABS: BEDSIDE GLUCOSE 235 MG/DL (83-110)
[2018-06-17 17:01] LABS: BEDSIDE GLUCOSE 252 MG/DL (83-110)
[2018-06-17 20:32] LABS: BEDSIDE GLUCOSE 325 MG/DL (83-110)
[2018-06-17] MEDS: PRAVASTATIN 20 MG TAB PO (20:47)
[2018-06-18 06:24] LABS: BEDSIDE GLUCOSE 125 MG/DL (83-110)
[2018-06-18] MEDS: SUCRALFATE 1 GM TAB PO ×4 (07:01→20:50)
[2018-06-18] MEDS: HumaLOG INSULIN (NovoLOG) PER UNIT SC ×4 (07:08→20:45)
[2018-06-18] MEDS: LISINOPRIL 20 MG TAB PO (08:47)
[2018-06-18] MEDS: OMEPRAZOLE 20 MG CAP PO ×2 (08:47→20:50)
[2018-06-18] MEDS: ALLOPURINOL 100 MG TAB PO (08:47)
[2018-06-18] MEDS: DULoxetine 30 MG CAP (CYMBALTA) PO (08:47)
[2018-06-18] MEDS: LEVEMIR (INSULIN DETEMIR) 1 UNITS/0.01ML SC ×2 (08:48→20:51)
[2018-06-18] MEDS: BACITRACIN OINT 30GM TOP (08:49)
[2018-06-18] MEDS: TRIAMCINOLONE ACET 0.1% CREAM 80 GM TOP ×2 (09:00→20:52)
[2018-06-18] MEDS: NIX CREME RINSE 1% 60 ML KIT TOP (11:54)
[2018-06-18] MEDS: MOM 30ML SUSPENSION UDC PO (12:58)
[2018-06-18] MEDS: DOCUSATE SODIUM 100 MG CAP PO (12:59)
[2018-06-18] MEDS: MAGNESIUM OXIDE 400 MG TAB (MAG-OX) PO (12:59)
[2018-06-18] MEDS: FERROUS SULFATE 325MG TAB PO (12:59)
[2018-06-18 13:06] LABS: BEDSIDE GLUCOSE 296 MG/DL (83-110)
[2018-06-18 17:17] LABS: BEDSIDE GLUCOSE 244 MG/DL (83-110)
[2018-06-18 20:47] LABS: BEDSIDE GLUCOSE 241 MG/DL (83-110)
[2018-06-18] MEDS: traZODone 50 MG TAB PO (20:50)
[2018-06-18] MEDS: PRAVASTATIN 20 MG TAB PO (20:50)
[2018-06-19 05:16] LABS: BEDSIDE GLUCOSE 113 MG/DL (83-110)
[2018-06-19] MEDS: LEVOTHYROXINE 75MCG TABLET (0.075MG) PO (06:13)
[2018-06-19] MEDS: SUCRALFATE 1 GM TAB PO ×4 (06:44→20:35)
[2018-06-19] MEDS: HumaLOG INSULIN (NovoLOG) PER UNIT SC ×4 (06:45→20:36)
[2018-06-19] MEDS: DULoxetine 30 MG CAP (CYMBALTA) PO (09:05)
[2018-06-19] MEDS: ALLOPURINOL 100 MG TAB PO (09:05)
[2018-06-19] MEDS: LEVEMIR (INSULIN DETEMIR) 1 UNITS/0.01ML SC ×2 (09:05→20:36)
[2018-06-19] MEDS: OMEPRAZOLE 20 MG CAP PO ×2 (09:05→20:35)
[2018-06-19] MEDS: LISINOPRIL 20 MG TAB PO (09:05)
[2018-06-19] MEDS: BACITRACIN OINT 30GM TOP (09:06)
[2018-06-19] MEDS: TRIAMCINOLONE ACET 0.1% CREAM 80 GM TOP ×2 (09:07→20:36)
[2018-06-19 11:57] LABS: BEDSIDE GLUCOSE 300 MG/DL (83-110)
[2018-06-19] MEDS: MAGNESIUM OXIDE 400 MG TAB (MAG-OX) PO (11:59)
[2018-06-19] MEDS: DOCUSATE SODIUM 100 MG CAP PO (11:59)
[2018-06-19] MEDS: FERROUS SULFATE 325MG TAB PO (11:59)
[2018-06-19 15:49] LABS: BEDSIDE GLUCOSE 227 MG/DL (83-110)
[2018-06-19] MEDS ORDERED: DOCUSATE SODIUM 100 MG CAP PO (16:30)
[2018-06-19 17:13] LABS: BEDSIDE GLUCOSE 189 MG/DL (83-110)
[2018-06-19] MEDS: MIRALAX *UNIT DOSE* 17GM PACKET PO (17:13)
[2018-06-19 20:33] LABS: BEDSIDE GLUCOSE 246 MG/DL (83-110)
[2018-06-19] MEDS: PRAVASTATIN 20 MG TAB PO (20:35)
[2018-06-20] MEDS: LEVOTHYROXINE 75MCG TABLET (0.075MG) PO (06:09)
[2018-06-20] MEDS: HumaLOG INSULIN (NovoLOG) PER UNIT SC ×4 (06:28→20:08)
[2018-06-20] MEDS: SUCRALFATE 1 GM TAB PO ×4 (06:30→20:04)
[2018-06-20 06:38] LABS: BEDSIDE GLUCOSE 76 MG/DL (83-110)
[2018-06-20] MEDS: LEVEMIR (INSULIN DETEMIR) 1 UNITS/0.01ML SC ×2 (08:37→20:09)
[2018-06-20] MEDS: LISINOPRIL 20 MG TAB PO (08:37)
[2018-06-20] MEDS: OMEPRAZOLE 20 MG CAP PO ×2 (08:37→20:04)
[2018-06-20] MEDS: ALLOPURINOL 100 MG TAB PO (08:38)
[2018-06-20] MEDS: TRIAMCINOLONE ACET 0.1% CREAM 80 GM TOP ×2 (08:38→20:09)
[2018-06-20] MEDS: BACITRACIN OINT 30GM TOP (08:38)
[2018-06-20] MEDS: DULoxetine 30 MG CAP (CYMBALTA) PO (08:38)
[2018-06-20] MEDS ORDERED: DOCUSATE SODIUM 100 MG CAP PO (09:00)
[2018-06-20 11:32] LABS: BEDSIDE GLUCOSE 260 MG/DL (83-110)
[2018-06-20] MEDS: FERROUS SULFATE 325MG TAB PO (11:55)
[2018-06-20] MEDS: DOCUSATE SODIUM 100 MG CAP PO (11:55)
[2018-06-20] MEDS: MAGNESIUM OXIDE 400 MG TAB (MAG-OX) PO (11:55)
[2018-06-20 17:17] LABS: BEDSIDE GLUCOSE 234 MG/DL (83-110)
[2018-06-20] MEDS: PRAVASTATIN 20 MG TAB PO (20:04)
[2018-06-20] MEDS: traZODone 50 MG TAB PO (20:04)
[2018-06-20 20:15] LABS: BEDSIDE GLUCOSE 276 MG/DL (83-110)
[2018-06-21] MEDS: SUCRALFATE 1 GM TAB PO (06:24)
[2018-06-21] MEDS: LEVOTHYROXINE 75MCG TABLET (0.075MG) PO (06:25)
[2018-06-21] MEDS: HumaLOG INSULIN (NovoLOG) PER UNIT SC (06:33)
[2018-06-21 06:43] LABS: BEDSIDE GLUCOSE 143 MG/DL (83-110)
[2018-06-21] MEDS: LEVEMIR (INSULIN DETEMIR) 1 UNITS/0.01ML SC (07:38)
[2018-06-21] MEDS: ALLOPURINOL 100 MG TAB PO (07:40)
[2018-06-21] MEDS: LISINOPRIL 20 MG TAB PO (07:40)
[2018-06-21] MEDS: OMEPRAZOLE 20 MG CAP PO (07:40)
[2018-06-21] MEDS: TRIAMCINOLONE ACET 0.1% CREAM 80 GM TOP (07:40)
[2018-06-21] MEDS: BACITRACIN OINT 30GM TOP (07:40)
[2018-06-21] MEDS: DULoxetine 30 MG CAP (CYMBALTA) PO (07:40)
== END 2018-06-21 09:00 | disposition home or self-care (01) | DRG 885 ==
LOC: M PSY 06-01 00:04 → M ED 12:33 → M ED INP 20:23
DX: F32.3 Major depressive disorder, single episode, severe with psychotic features (principal); F60.2 Antisocial personality disorder; Z63.4 Disappearance and death of family member; J44.9 Chronic obstructive pulmonary disease, unspecified; E11.9 Type 2 diabetes mellitus without complications; E03.9 Hypothyroidism, unspecified; M10.9 Gout, unspecified; M19.90 Unspecified osteoarthritis, unspecified site; I10 Essential (primary) hypertension; R26.89 Other abnormalities of gait and mobility; Z79.899 Other long term (current) drug therapy; Z88.6 Allergy status to analgesic agent; K21.9 Gastro-esophageal reflux disease without esophagitis; F41.9 Anxiety disorder, unspecified; D64.9 Anemia, unspecified; K74.69 Other cirrhosis of liver; F03.90 Unspecified dementia, unspecified severity, without behavioral disturbance, psychotic disturbance, mood disturbance, and anxiety; D69.6 Thrombocytopenia, unspecified; K59.00 Constipation, unspecified; M25.562 Pain in left knee